=== PATIENT | female | born 1960 | race Caucasian/White ===

== ENCOUNTER → 2017-03-18 | Outpatient (CLI) | payer OTHER ==
[~2017-03-18] MED LIST: CRG40 PO; DOCU100C31 PO; DXY100 PO; LSX40 PO; PRD10 PO; PRT40 PO; SENN-65 PO; SPR25 PO; THIA100T11 PO; XFX550 PO
--- NOTE | 2017-03-18 15:49 | MAMMOGRAPHY REPORT ---
BILATERAL DIGITAL SCREENING MAMMOGRAM TOMOSYNTHESIS WITH CAD: 03/18/2017 CLINICAL HISTORY: Routine screening. TECHNIQUE: Breast tomosynthesis in addition to standard 2D mammography was performed. Current study was also evaluated with a Computer Aided Detection (CAD) system. COMPARISON: Comparison is made to exam dated: 10/11/2011 mammogram - [facility]. BREAST COMPOSITION: There are scattered areas of fibroglandular density in both breasts. FINDINGS: No suspicious masses, calcifications, or areas of architectural distortion are noted in ei ther breast. There are bilateral scattered benign vascular calcifications, increased from the prior 2011 exam. IMPRESSION: ACR BI-RADS CATEGORY 2: BENIGN There is no mammographic evidence of malignancy. A 1 year screening mammogram is recommended. The pa tient will receive written notification of the results. Approximately 10% of breast cancers are not detected with mammography. A negative mammographic report should not delay biopsy if a clinically suggestive mass is present. Melanie Kline M.D. ah/:03/18/2017 15:34:43 Diamond Sorter: Dayana GALINDO(Harmony)(M), [facility] letter sent: Normal 1/2 BI-RADS Code: ACR BI-RADS Category 2: Benign
== END | disposition home or self-care (01) ==
LOC: C.MAMM 10:48
PROVIDERS: ATTEND Nurse Practitioner Adult Health
DX: Z12.31 Encounter for screening mammogram for malignant neoplasm of breast (principal)

== ENCOUNTER 2020-08-15 16:59 | Inpatient (IN) ==
[2020-08-15 17:34] LABS: INR 3.1 (0.9-1.1); Partial Thromboplastin Ratio 1.7; Partial Thromboplastin Time 44.7 Seconds (21.0-31.0); Prothrombin Time 28.5 Seconds (9.0-12.0)
[2020-08-15] MEDS ORDERED: LACTULOSE SYRUP 30 GM/45 ML UDP PO STA (17:35)
--- NOTE | 2020-08-15 17:41 | Emergency Department Note ---
History of Present Illness General Chief complaint: Altered Mental Status Stated complaint: CONFUSION/JAUNDICE/BLOOD DISEASE Time Seen by Provider: 08/15/20 17:27 Source: patient and RN notes reviewed Mode of arrival: EMS History of Present Illness Provider complaint: Altered mental status Onset (ago): hour(s) Location: head Severity: moderate Pain Consistency: + constant Quality: + other (Confused) Relieved By: + none Associated symptoms: + confusion; no chest pain, no cough, no fever/chills, no headaches, no nausea/vomiting, no shortness of breath, no syncope and no weakness This is a 59-year-old female with history of alcoholic cirrhosis presenting with altered mental status today. The patient last spoke to her son over the telephone at noon yesterday. When he tried to contact her today he could not get an answer. He went to her house and she was not answering the door. EMS arrived and she was on the toilet very confused. She progressively got better on the way here. She denies any headache, numbness or weakness, chest pain, shortness of breath, fever, cough, abdominal pain, vomiting, diarrhea or urinary symptoms. She states that her skin and eyes have been discolored for about a month. She also states that she stopped taking her lactulose 3 weeks ago. She has had increased swelling to her abdomen as well as swelling to her legs as well. She denies any fall or headache. Home Medications Medication Instructions Recorded Confirmed Type Xifaxan 550 mg PO BID 06/12/18 08/15/20 History furosemide 40 mg PO QAM 06/12/18 08/15/20 History lactulose 15 ml PO BID PRN 06/12/18 08/15/20 History magnesium oxide 400 mg PO QAM 06/12/18 08/15/20 History pantoprazole 40 mg PO QAM 06/12/18 08/15/20 History propranolol 10 mg PO BID 06/12/18 08/15/20 History spironolactone 25 mg PO QAM 06/12/18 08/15/20 History thiamine HCl (vitamin B1) 100 mg PO QAM 06/12/18 08/15/20 History mesalamine [Apriso] 1.5 g PO QAM 03/23/19 08/15/20 History multivitamin with folic acid 1 tab PO QAM 08/15/20 08/15/20 History [Tab-A-Kayli] Allergies Allergy/AdvReac Type Severity Reaction Status Date / Time benzalkonium Allergy Unknown Itchiness,swollen Verified 01/22/19 08:26 reddened eye cephalexin Allergy Unknown Hives Verified 01/22/19 08:26 clonidine Allergy Unknown Itchy rash Verified 01/22/19 08:26 Past Med/Surg History Medical History (Updated 08/15/20 @ 23:04 by Don Costello MD) Hemochromatosis History of colon polyps Hypertension Nonalcoholic steatohepatitis (SARAH) fatty liver Surgical History History of colonoscopy History of esophagogastroduodenoscopy (EGD) Family History Father Family history of diabetes mellitus Mother Family history of diabetes mellitus Brother Family history of diabetes mellitus 2 Social History Smoking Status: Never smoker Second Hand Exposure: No; Hx Alcohol Use: No Hx Substance Use: No Preferred Language: [place] Communication Ability: Effective Hospital Admissions Officer Required: No Beliefs That Will Affect Care: None Current Living Situation: Alone Current Living Situation Comment: lives with son Feels Safe at Home: Yes Assistive Devices: Glasses Review of Systems See HPI for pertinent positives & negatives. and A total of 10 systems reviewed and were otherwise negative Physical Exam Vital Signs Vital Signs - 24 hr 08/15/20 17:06 08/15/20 17:17 08/15/20 17:18 Temperature 36.9 C Temperature Source Oral Pulse Rate 76 75 78 Pulse Rate from SpO2 Sensor Respiratory Rate 19 18 15 Blood Pressure 129/84 129/84 Blood Pressure Mean 99 99 Pulse Oximetry 96 Oxygen Delivery Method Room Air Sepsis Recent Fever Within 48 Hours No Sepsis New/Unexplained Change in Mental Status Yes Sepsis Action Taken by Nursing No Action Required 08/15/20 17:30 08/15/20 17:31 08/15/20 19:02 Temperature Temperature Source Pulse Rate 75 75 Pulse Rate from SpO2 Sensor Respiratory Rate 16 20 22 Blood Pressure 124/84 Blood Pressure Mean 97 Pulse Oximetry Oxygen Delivery Method Sepsis Recent Fever Within 48 Hours Sepsis New/Unexplained Change in Mental Status Sepsis Action Taken by Nursing 08/15/20 19:04 08/15/20 19:10 08/15/20 19:20 Temperature Temperature Source Pulse Rate 70 71 73 Pulse Rate from SpO2 Sensor Respiratory Rate 13 20 20 Blood Pressure 113/75 Blood Pressure Mean 87 Pulse Oximetry Oxygen Delivery Method Sepsis Recent Fever Within 48 Hours Sepsis New/Unexplained Change in Mental Status Sepsis Action Taken by Nursing 08/15/20 19:30 08/15/20 19:32 08/15/20 19:36 Temperature Temperature Source Pulse Rate 66 69 69 Pulse Rate from SpO2 Sensor Respiratory Rate 17 17 20 Blood Pressure 79/59 L 80/56 L 111/69 Blood Pressure Mean 65 64 83 Pulse Oximetry Oxygen Delivery Method Sepsis Recent Fever Within 48 Hours Sepsis New/Unexplained Change in Mental Status Sepsis Action Taken by Nursing 08/15/20 19:40 08/15/20 19:41 08/15/20 19:50 Temperature Temperature Source Pulse Rate 68 68 72 Pulse Rate from SpO2 Sensor Respiratory Rate 15 16 17 Blood Pressure 103/66 Blood Pressure Mean 78 Pulse Oximetry Oxygen Delivery Method Sepsis Recent Fever Within 48 Hours Sepsis New/Unexplained Change in Mental Status Sepsis Action Taken by Nursing 08/15/20 19:51 08/15/20 20:00 08/15/20 20:10 Temperature Temperature Source Pulse Rate 69 Pulse Rate from SpO2 Sensor Respiratory Rate 14 Blood Pressure 90/58 L 107/46 L 94/55 L Blood Pressure Mean 68 66 68 Pulse Oximetry Oxygen Delivery Method Sepsis Recent Fever Within 48 Hours Sepsis New/Unexplained Change in Mental Status Sepsis Action Taken by Nursing 08/15/20 20:18 08/15/20 20:20 08/15/20 20:30 Temperature Temperature Source Pulse Rate 75 72 68 Pulse Rate from SpO2 Sensor 72 68 Respiratory Rate 18 18 15 Blood Pressure 100/54 L 85/50 L Blood Pressure Mean 69 61 Pulse Oximetry 96 98 Oxygen Delivery Method Sepsis Recent Fever Within 48 Hours Sepsis New/Unexplained Change in Mental Status Sepsis Action Taken by Nursing 08/15/20 20:31 08/15/20 20:50 08/15/20 21:01 Temperature Temperature Source Pulse Rate 70 73 70 Pulse Rate from SpO2 Sensor 70 72 70 Respiratory Rate 21 14 17 Blood Pressure 84/45 L Blood Pressure Mean 58 Pulse Oximetry 99 99 98 Oxygen Delivery Method Sepsis Recent Fever Within 48 Hours Sepsis New/Unexplained Change in Mental Status Sepsis Action Taken by Nursing 08/15/20 21:03 08/15/20 21:04 08/15/20 21:22 Temperature Temperature Source Pulse Rate 69 69 73 Pulse Rate from SpO2 Sensor 69 69 73 Respiratory Rate 12 16 22 Blood Pressure 82/43 L Blood Pressure Mean 56 85 Pulse Oximetry 98 96 97 Oxygen Delivery Method Sepsis Recent Fever Within 48 Hours Sepsis New/Unexplained Change in Mental Status Sepsis Action Taken by Nursing 08/15/20 21:24 08/15/20 21:27 08/15/20 21:30 Temperature Temperature Source Pulse Rate 72 74 74 Pulse Rate from SpO2 Sensor 71 74 74 Respiratory Rate 16 21 18 Blood Pressure 89/52 L 116/75 111/72 Blood Pressure Mean 64 88 85 Pulse Oximetry 99 91 98 Oxygen Delivery Method Sepsis Recent Fever Within 48 Hours Sepsis New/Unexplained Change in Mental Status Sepsis Action Taken by Nursing 08/15/20 21:31 08/15/20 21:32 08/15/20 21:35 Temperature Temperature Source Pulse Rate 73 75 75 Pulse Rate from SpO2 Sensor 74 75 73 Respiratory Rate 22 12 21 Blood Pressure 99/52 L 94/52 L Blood Pressure Mean 67 66 Pulse Oximetry 99 98 99 Oxygen Delivery Method Sepsis Recent Fever Within 48 Hours Sepsis New/Unexplained Change in Mental Status Sepsis Action Taken by Nursing 08/15/20 21:36 08/15/20 21:40 08/15/20 21:50 Temperature Temperature Source Pulse Rate 76 73 78 Pulse Rate from SpO2 Sensor 76 74 80 Respiratory Rate 18 16 18 Blood Pressure Blood Pressure Mean Pulse Oximetry 98 99 95 Oxygen Delivery Method Sepsis Recent Fever Within 48 Hours Sepsis New/Unexplained Change in Mental Status Sepsis Action Taken by Nursing 08/15/20 21:55 08/15/20 21:56 08/15/20 22:00 Temperature Temperature Source Pulse Rate 75 74 71 Pulse Rate from SpO2 Sensor 76 75 72 Respiratory Rate 19 20 16 Blood Pressure 93/55 L 94/47 L Blood Pressure Mean 67 62 Pulse Oximetry 97 97 98 Oxygen Delivery Method Sepsis Recent Fever Within 48 Hours Sepsis New/Unexplained Change in Mental Status Sepsis Action Taken by Nursing 08/15/20 22:01 08/15/20 22:05 08/15/20 22:10 Temperature Temperature Source Pulse Rate 73 72 71 Pulse Rate from SpO2 Sensor 74 73 72 Respiratory Rate 15 15 14 Blood Pressure 88/45 L 87/50 L Blood Pressure Mean 59 62 Pulse Oximetry 98 99 98 Oxygen Delivery Method Sepsis Recent Fever Within 48 Hours Sepsis New/Unexplained Change in Mental Status Sepsis Action Taken by Nursing 08/15/20 22:15 08/15/20 22:16 08/15/20 22:20 Temperature Temperature Source Pulse Rate 70 73 70 Pulse Rate from SpO2 Sensor 71 73 70 Respiratory Rate 13 16 19 Blood Pressure 95/46 L 87/52 L Blood Pressure Mean 62 63 Pulse Oximetry 98 97 97 Oxygen Delivery Method Sepsis Recent Fever Within 48 Hours Sepsis New/Unexplained Change in Mental Status Sepsis Action Taken by Nursing 08/15/20 22:21 08/15/20 22:31 08/15/20 22:50 Temperature Temperature Source Pulse Rate 69 71 75 Pulse Rate from SpO2 Sensor 69 71 Respiratory Rate 13 23 13 Blood Pressure 110/73 Blood Pressure Mean 85 Pulse Oximetry 97 96 Oxygen Delivery Method Sepsis Recent Fever Within 48 Hours Sepsis New/Unexplained Change in Mental Status Sepsis Action Taken by Nursing Constitutional: Vital signs reviewed. Eyes: Pupils are equal round reactive to light. Sclera are icteric. ENT: Pharynx is clear without erythema or exudate. Mucous membranes are moist. Neck supple without meningeal signs. Respiratory: Clear to auscultation bilaterally. Breath sounds are equal bilaterally. Cardiovascular: Regular rate and rhythm. No rubs or gallops. GI: Soft, distended and nontender. Bowel sounds are present. Musculoskeletal: Bilateral lower extremity edema. No lower extremity tenderness. Integumentary: Jaundiced. Neurologic: The patient is awake and alert. She is oriented x4. Slow to answer questions but answers appropriately without signs of aphasia or slurring. Cranial nerves II-XII are intact. Motor is 5 out of 5 all extremities. Sen sation is intact to light touch all extremities. No pronator drift. No limb ataxia. Positive asterixis. Psychiatric: Normal affect. Not anxious appearing. Course Administered Medications Sodium Chloride (Nss) 500 mls @ 999 mls/hr IV .Q31M ONE Stop: 08/15/20 22:59 Last Admin: 08/15/20 22:53 Dose: 999 mls/hr Documented by: [id number] Discontinued Medications Lactulose (Lactulose Syrup 30 Gm/45 Ml Udp) 30 gm PO NOW STA Stop: 08/15/20 17:36 Last Admin: 08/15/20 20:17 Dose: 30 gm Documented by: [id number] Critical Care Time Critical Care Time: Yes Total Critical Care Time: 40 I have personally spent approximately 40 minutes of critical care time in the direct management of this patient. This includes bedside care, interpretation of diagnostic studies, and testing, discussion with consultants, patient, and family members, and other required patient management activities. These minutes are in excess of all separately billable procedures. Medical Decision Making Differential Diagnosis Hepatic encephalopathy, alcohol intoxication, ICH, CVA, metabolic derangement Medical Records Attestation: I reviewed the patient's medical records. I did perform a limited focused review of portions of the patient's old chart o n the electronic medical record. The patient has had no recent pertinent visits to this hospital. Home Medications Current Medication List: was personally reviewed by me Laboratory Data Attestation: I reviewed the patient's lab results. Result diagrams: 08/15/20 17:10 08/15/20 17:10 Lab Results 08/15/20 08/15/20 08/15/20 Range/Units 17:10 17:10 17:10 WBC 7.06 (4.8-10.8) K/uL RBC 4.02 L (4.2-5.4) M/uL Hgb 13.0 (12.0-16.0) g/dL POC Hgb (12.0-16.0) g/dl Hct 35.6 L (37-47) % POC Hct (37-47) % MCV 88.6 (80-100) fL MCH 32.3 (25-34) pg MCHC 36.5 H (32-36) g/dL RDW Std Deviation 58.0 H (36.4-46.3) fL RDW Coeff of Daniel 18.5 H (11.5-14.5) % Plt Count 96 L (130-400) K/uL MPV 10.8 H (7.4-10.4) fL Immature Gran % (Auto) 1.0 % Neut % (Auto) 73.8 % Lymph % (Auto) 11.9 % [place] % (Auto) 10.9 % Eos % (Auto) 1.8 % Baso % (Auto) 0.6 % Neut # (Auto) 5.21 (1.4-6.5) K/uL Lymph # (Auto) 0.84 L (1.2-3.4) K/uL [place] # (Auto) 0.77 H (0.11-0.59) K/uL Eos # (Auto) 0.13 (0-0.5) K/uL Baso # (Auto) 0.04 (0-0.2) K/uL Immature Gran # (Auto) 0.07 H (0.00-0.02) K/uL Platelet Estimate Decreased L (Normal) Target Cells 1+ Echinocytes 1+ PT 28.5 H (9.0-12.0) Seconds INR 3.1 H (0.9-1.1) APTT 44.7 H (21.0-31.0) Seconds PTT Ratio 1.7 POC Sodium (135-144) mmol/L Sodium 128 L (136-145) mmol/L POC Potassium (3.3-5.0) mmol/L Potassium 2.9 L (3.5-5.1) mmol/L POC Chloride (101-112) mmol/L Chloride 91 L (98-107) mmol/L Carbon Dioxide 25 (21-32) mmol/L POC Total CO2 (24-31) mmol/L Anion Gap 12.0 H (3-11) POC Anion Gap (16-25) mmol/L POC BUN (7-18) mg/dl BUN 8 (7-18) mg/dl Creatinine (0.6-1.2) mg/dl POC Creatinine (0.6-1.3) mg/dl Est Cr Clr Drug Dosing ml/min Est GFR ( Amer) Est GFR (Non-Af Amer) BUN/Creatinine Ratio (10-20) Glucose 96 (70-99) mg/dl POC Glucose (other) (70-99) mg/dl Calcium 8.6 (8.5-10.1) mg/dl POC Ioniz Calcium Dustin (1.12-1.32) mmol/l Magnesium 2.0 (1.8-2.4) mg/dl Total Bilirubin 26.3 H (0.2-1) mg/dl AST 164 H (15-37) U/L ALT 62 (12-78) U/L Alkaline Phosphatase 257 H (45-117) U/L Ammonia (11-32) umol/L Troponin I < 0.015 (0-0.045) ng/ml Total Protein (6.4-8.2) gm/dl Albumin 1.9 L (3.4-5.0) gm/dl Globulin (2.5-4.0) gm/dl Albumin/Globulin Ratio (0.9-2) TSH 5.440 H (0.300-4.500) uIu/ml Ethyl Alcohol mg/dL (0-3) mg/dl COVID-19 Eval Order SARS-CoV-2, RNA, NAAT (NEGATIVE) 08/15/20 08/15/20 08/15/20 Range/Units 17:10 17:45 17:45 WBC (4.8-10.8) K/uL RBC (4.2-5.4) M/uL Hgb (12.0-16.0) g/dL POC Hgb (12.0-16.0) g/dl Hct (37-47) % POC Hct (37-47) % MCV (80-100) fL MCH (25-34) pg MCHC (32-36) g/dL RDW Std Deviation (36.4-46.3) fL RDW Coeff of Daniel (11.5-14.5) % Plt Count (130-400) K/uL MPV (7.4-10.4) fL Immature Gran % (Auto) % Neut % (Auto) % Lymph % (Auto) % [place] % (Auto) % Eos % (Auto) % Baso % (Auto) % Neut # (Auto) (1.4-6.5) K/uL Lymph # (Auto) (1.2-3.4) K/uL [place] # (Auto) (0.11-0.59) K/uL Eos # (Auto) (0-0.5) K/uL Baso # (Auto) (0-0.2) K/uL Immature Gran # (Auto) (0.00-0.02) K/uL Platelet Estimate (Normal) Target Cells Echinocytes PT (9.0-12.0) Seconds INR (0.9-1.1) APTT (21.0-31.0) Seconds PTT Ratio POC Sodium (135-144) mmol/L Sodium (136-145) mmol/L POC Potassium (3.3-5.0) mmol/L Potassium (3.5-5.1) mmol/L POC Chloride (101-112) mmol/L Chloride (98-107) mmol/L Carbon Dioxide (21-32) mmol/L POC Total CO2 (24-31) mmol/L Anion Gap (3-11) POC Anion Gap (16-25) mmol/L POC BUN (7-18) mg/dl BUN (7-18) mg/dl Creatinine (0.6-1.2) mg/dl POC Creatinine (0.6-1.3) mg/dl Est Cr Clr Drug Dosing ml/min Est GFR ( Amer) Est GFR (Non-Af Amer) BUN/Creatinine Ratio (10-20) Glucose (70-99) mg/dl POC Glucose (other) (70-99) mg/dl Calcium (8.5-10.1) mg/dl POC Ioniz Calcium Dustin (1.12-1.32) mmol/l Magnesium (1.8-2.4) mg/dl Total Bilirubin (0.2-1) mg/dl AST (15-37) U/L ALT (12-78) U/L Alkaline Phosphatase (45-117) U/L Ammonia 107.0 H (11-32) umol/L Troponin I (0-0.045) ng/ml Total Protein (6.4-8.2) gm/dl Albumin (3.4-5.0) gm/dl Globulin (2.5-4.0) gm/dl Albumin/Globulin Ratio (0.9-2) TSH (0.300-4.500) uIu/ml Ethyl Alcohol mg/dL (0-3) mg/dl COVID-19 Eval [facility] SARS-CoV-2, RNA, NAAT NEGATIVE (NEGATIVE) 08/15/20 08/15/20 Range/Units 18:01 18:16 WBC (4.8-10.8) K/uL RBC (4.2-5.4) M/uL Hgb (12.0-16.0) g/dL POC Hgb 14.3 (12.0-16.0) g/dl Hct (37-47) % POC Hct 42 (37-47) % MCV (80-100) fL MCH (25-34) pg MCHC (32-36) g/dL RDW Std Deviation (36.4-46.3) fL RDW Coeff of Daniel (11.5-14.5) % Plt Count (130-400) K/uL MPV (7.4-10.4) fL Immature Gran % (Auto) % Neut % (Auto) % Lymph % (Auto) % [place] % (Auto) % Eos % (Auto) % Baso % (Auto) % Neut # (Auto) (1.4-6.5) K/uL Lymph # (Auto) (1.2-3.4) K/uL [place] # (Auto) (0.11-0.59) K/uL Eos # (Auto) (0-0.5) K/uL Baso # (Auto) (0-0.2) K/uL Immature Gran # (Auto) (0.00-0.02) K/uL Platelet Estimate (Normal) Target Cells Echinocytes PT (9.0-12.0) Seconds INR (0.9-1.1) APTT (21.0-31.0) Seconds PTT Ratio POC Sodium 126 L (135-144) mmol/L Sodium (136-145) mmol/L POC Potassium 2.7 L (3.3-5.0) mmol/L Potassium (3.5-5.1) mmol/L POC Chloride 87 L (101-112) mmol/L Chloride (98-107) mmol/L Carbon Dioxide (21-32) mmol/L POC Total CO2 23 L (24-31) mmol/L Anion Gap (3-11) POC Anion Gap 19.0 (16-25) mmol/L POC BUN 7 (7-18) mg/dl BUN (7-18) mg/dl Creatinine (0.6-1.2) mg/dl POC Creatinine 1.9 H (0.6-1.3) mg/dl Est Cr Clr Drug Dosing ml/min Est GFR ( Amer) Est GFR (Non-Af Amer) BUN/Creatinine Ratio (10-20) Glucose (70-99) mg/dl POC Glucose (other) 94 (70-99) mg/dl Calcium (8.5-10.1) mg/dl POC Ioniz Calcium Dustin 1.02 L (1.12-1.32) mmol/l Magnesium (1.8-2.4) mg/dl Total Bilirubin (0.2-1) mg/dl AST (15-37) U/L ALT (12-78) U/L Alkaline Phosphatase (45-117) U/L Ammonia (11-32) umol/L Troponin I (0-0.045) ng/ml Total Protein (6.4-8.2) gm/dl Albumin (3.4-5.0) gm/dl Globulin (2.5-4.0) gm/dl Albumin/Globulin Ratio (0.9-2) TSH (0.300-4.500) uIu/ml Ethyl Alcohol mg/dL < 3.0 (0-3) mg/dl COVID-19 Eval Order SARS-CoV-2, RNA, NAAT (NEGATIVE) Imaging Data Radiologist's Impression: XR chest 1V portable HISTORY: 59 years-old Female AMS eval for pna acutely altered mental status. COMPARISON: Chest radiograph 06/20/2016 TECHNIQUE: Portable AP view of the chest FINDINGS: Cardiac silhouette is mildly enlarged. No pneumothorax, pleural effusion or overt pulmonary edema. Mild chronic interstitial coarsening. Unchanged opacity of the right lung apex suggestive of pleural thickening. Mild right hemidiap hragmatic elevation. Bones appear grossly intact. IMPRESSION: No acute process. ACT 112: Negative or not required by law. The above report was generated using voice recognition software. It may contain grammatical, syntax or spelling errors. Electronically signed by: Hipolito Conner M.D. 08/15/2020 6:21 PM Dictated: 08/15/201819 Transcribed: 08/15/201819 CT head/brain wo con CLINICAL HISTORY: 59 years-old Female with ams. Acutely altered mental status TECHNIQUE: Multiple axial CT images of the head were obtained without contrast. A dose lowering technique was utilized adhering to the principles of ALARA. CT DOSE: 994.86 mGycm COMPARISON: Head CT 06/18/2016. FINDINGS: No acute intracranial hemorrhage, midline shift, intracranial mass, hydrocephalus, territorial ischemia or abnormal extra-axial collection. Cerebral vascular calcifications. Minimal white matter hypodensities suggest chronic microvascular ischemic disease. The calvarium is intact. The paranasal sinuses, mastoid air cells, and middle ear cavities are clear. IMPRESSION: No acute intracranial abnormality. ACT 112: Negative or not required by law. The above report was generated using voice recognition software. It may contain grammatical, syntax or spelling errors. Electronically signed by: Hipolito Conner M.D. 08/15/2020 7:01 PM Dictated: 08/15/201899 Transcribed: 08/15/[address] WITHOUT CONTRAST CT DOSE: 1353.86 mGycm HISTORY: Acute jaundice jaundice eval for obstruction/ascites TECHNIQUE: Multiaxial CT images of the abdomen and pelvis were performed without contrast. A dose lowering technique was utilized adhering to the principles of ALARA. COMPARISON STUDY: Renal ultrasound 06/18/2016, CT abdomen and pelvis 05/04/2016 FINDINGS: Limited exam secondary to respiratory motion artifact, positioning and lack of contrast. Cardiomegaly. Clear lung bases. No pneumatosis or pneumoperitoneum. Unenhanced spleen, pancreas and right adrenal gland are unremarkable. 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 Partially contracted gallbladder with cho lelithiasis. No choledocholithiasis or definitive biliary ductal dilation identified. Cirrhotic morphology of the liver with severe hepatic steatosis. Small to moderate volume of abdominal pelvic ascites. Upper abdominal varices. 3.6 cm cyst of the inferior pole left kidney. No hydronephrosis. Kidneys are otherwise unremarkable. Partially decompressed urinary bladder with mild wall thickening. Unremarkable uterus. No aortic aneurysm. No adenopathy. Small hiatal hernia. No bowel obstruction. There is mild wall thickening of the cecum and ascending colon. Normal appendix. Diffuse body wall edema. No acute fracture. IMPRESSION: 1. Cirrhotic liver disease with severe hepatic steatosis. Stigmata of portal venous hypertension includes upper abdominal varices with small to moderate volume of abdominal pelvic ascites. 2. Mild wall thickening of the cecum and ascending colon may be secondary to portal colopathy with a mild nonspecific colitis also within the differential. 3. Normal appendix. 4. No bowel obstruction or pneumoperitoneum. 5. Small hiatal hernia. ACT 112: Negative or not required by law. The above report was generated using voice recognition software. It may contain grammatical, syntax or spelling errors. Electronically signed by: Hipolito Conner M.D. 08/15/2020 7:25 PM Dictated: 08/15/201915 Transcribed: 08/15/201918 ECG Data Attestation: I personally reviewed and interpreted this ECG as follows: Indication: + altered mental status Rate (beats per minute): 77 Rhythm: + normal sinus ECG Intervals/blocks: + Prolonged QT ECG Findings: + Other (Limited interpretation due to motion artifact.); no PVCs MDM Narrative I did evaluate the patient as noted above. Patient is presenting with altered mental status. She admits to not taking her lactulose for 3 weeks. She does have a history of alcoholic cirrhosis. She is jaundiced. IV access was established. I did place an order for continuous cardiac monitoring. The monitor showed normal sinus rhythm at a rate of 76 bpm. I did order and personally review the patient's 12-lead EKG as described above. She has a prolonged QT interval. Interpretation is limited due to motion artifact. I did order and personally reviewed the images of the patient's chest x-ray as described above. There is no evidence of pneumonia. I did order a urine analysis. I did order and review the patient's blood work as noted in the electronic medical record. Her white blood cell count is not elevated. Hemoglobin is 13. Platelet count is 96,000. She has an INR 3.1. Chemistries demonstrate a sodium of 128. Potassium is 2.9. Creatinine is elevated at 1.9. Total bilirubin is 26.3. AST is 164. ALT is 62. Ammonia is elevated at 107. Troponin is negative. I did order a CT of the head and abdomen and pelvis. I did review the images myself as well as the radiology report as described above. There is no evidence of acute intracranial process. CT of the abdomen pelvis demonstrates cirrhotic liver disease with severe hepatic steatosis. There is evidence of portal venous hypertension and upper abdominal varices with abdominal and pelvic ascites. I did discuss the test results with the patient. I did treat her with lactulose 30 g p.o. I did recommend hospitalization for further care and evaluation. I did discuss the case with the hospitalist and ca se regional production manager. Her blood pressure dropped slightly but then spontaneously went back to normal. Throughout the ED stay she had some episodes of hypotension but each time stated that she did not feel lightheaded or weak or have any symptoms. She was given normal saline IV and her blood pressure improved. Impression & Plan Acute hepatic encephalopathy, Hyponatremia, Abdominal ascites, Hypokalemia, Elevated serum creatinine, Thrombocytopenia, Alcoholic cirrhosis, Hyperbilirubinemia, Elevated INR Discharge Plan Visit Data Chief Complaint: Altered Mental Status Stated Complaint: CONFUSION/JAUNDICE/BLOOD DISEASE ED Provider: Don Costello Discharge Problem: Acute hepatic encephalopathy, Hyponatremia, Abdominal ascites, Hypokalemia, Elevated serum creatinine, Thrombocytopenia, Alcoholic cirrhosis, Hyperbilirubinemia, Elevated INR Patient Disposition: Being Evaluated by Hospitalist Forms Stand Alone Forms: My [facility] Prescriptions Prescriptions: No Action multivitamin with folic acid [Tab-A-Kayli] 400 mcg tablet 1 tab PO QAM RF: 0 furosemide 40 mg Tablet 40 mg PO QAM RF: 0 thiamine HCl (vitamin B1) 100 mg Tablet 100 mg PO QAM RF: 0 spironolactone 25 mg Tablet 25 mg PO QAM RF: 0 propranolol 10 mg Tablet 10 mg PO BID RF: 0 magnesium oxide 400 mg (241.3 mg magnesium) Tablet 400 mg PO QAM RF: 0 pantoprazole 40 mg Tablet,Delayed Release (Dr/Ec) 40 mg PO QAM RF: 0 lactulose 10 gram/15 mL Solution 15 ml PO BID PRN (Reason: 3 Bowel Movements Daily) RF: 0 Xifaxan 550 mg Tablet 550 mg PO BID RF: 0 mesalamine [Apriso] 0.375 gram Capsule,Extended Release 24hr 1.5 g PO QAM RF: 0 Referrals Referrals: Kamilla Suazo DO [Primary Care Provider] -
[2020-08-15 17:52] LABS: Alanine Aminotransferase 62 U/L (12-78); Albumin Level 1.9 gm/dl (3.4-5.0); Alkaline Phosphatase 257 U/L (45-117); Aspartate Aminotransferase 164 U/L (15-37); Bilirubin,Total 26.3 mg/dl (0.2-1); Blood Urea Nitrogen 8 mg/dl (7-18); Calcium 8.6 mg/dl (8.5-10.1); Carbon Dioxide 25 mmol/L (21-32); Chloride 91 mmol/L (98-107); Glucose 96 mg/dl (70-99); Potassium 2.9 mmol/L (3.5-5.1); Sodium 128 mmol/L (136-145); Troponin I < 0.015 ng/ml (0-0.045)
[2020-08-15 18:08] LABS: Basophils # (auto) 0.04 K/uL (0-0.2); Basophils % (auto) 0.6 %; Echinocytes 1+; Eosinophils # (auto) 0.13 K/uL (0-0.5); Eosinophils % (auto) 1.8 %; Hematocrit (blood only) 35.6 % (37-47); Immature Granulocytes # (auto) 0.07 K/uL (0.00-0.02); Lymphocytes # (auto) 0.84 K/uL (1.2-3.4); Lymphocytes % (auto) 11.9 %; Mean Corpuscular Hemoglobin 32.3 pg (25-34); Mean Corpuscular Hgb Conc 36.5 g/dL (32-36); Mean Corpuscular Volume 88.6 fL (80-100); Mean Platelet Volume 10.8 fL (7.4-10.4); Monocytes # (auto) 0.77 K/uL (0.11-0.59); Monocytes % (auto) 10.9 %; Neutrophils # (auto) 5.21 K/uL (1.4-6.5); Neutrophils % (auto) 73.8 %; Platelet Count 96 K/uL (130-400); Platelet Estimate Decreased (Normal); RDW Coefficient of Variation 18.5 % (11.5-14.5); Red Blood Count 4.02 M/uL (4.2-5.4); Target Cells 1+; White Blood Count 7.06 K/uL (4.8-10.8)
--- NOTE | 2020-08-15 18:22 | XRay Report ---
XR chest 1V portable HISTORY: 59 years-old Female AMS eval for pna acutely altered mental status. COMPARISON: Chest radiograph 06/20/2016 TECHNIQUE: Portable AP view of the chest FINDINGS: Cardiac silhouette is mildly enlarged. No pneumothorax, pleural effusion or overt pulmonary edema. Mi ld chronic interstitial coarsening. Unchanged opacity of the right lung apex suggestive of pleural th ickening. Mild right hemidiaphragmatic elevation. Bones appear grossly intact. IMPRESSION: No acute process. ACT 112: Negative or not required by law. The above report was generated using voice recognition software. It may contain grammatical, syntax o r spelling errors. Electronically signed by: Hipolito Conner M.D. 08/15/2020 6:21 PM
[2020-08-15 18:28] LABS: iSTAT Creatinine 1.9 mg/dl (0.6-1.3); iSTAT Hemoglobin 14.3 g/dl (12.0-16.0); iSTAT Ionized Calcium 1.02 mmol/l (1.12-1.32); iSTAT Potassium 2.7 mmol/L (3.3-5.0)
--- NOTE | 2020-08-15 19:03 | CT Scan Report ---
CT head/brain wo con CLINICAL HISTORY: 59 years-old Female with ams. Acutely altered mental status TECHNIQUE: Multiple axial CT images of the head were obtained without contrast. A dose lowering tech nique was utilized adhering to the principles of ALARA. CT DOSE: 994.86 mGycm COMPARISON: Head CT 06/18/2016. FINDINGS: No acute intracranial hemorrhage, midline shift, intracranial mass, hydrocephalus, territorial ischem ia or abnormal extra-axial collection. Cerebral vascular calcifications. Minimal white matter hypoden sities suggest chronic microvascular ischemic disease. The calvarium is intact. The paranasal sinuses, mastoid air cells, and middle ear cavities are clear . IMPRESSION: No acute intracranial abnormality. ACT 112: Negative or not required by law. The above report was generated using voice recognition software. It may contain grammatical, syntax o r spelling errors. Electronically signed by: Hipolito Conner M.D. 08/15/2020 7:01 PM
--- NOTE | 2020-08-15 19:27 | CT Scan Report ---
ABDOMEN AND PELVIS CT WITHOUT CONTRAST CT DOSE: 1353.86 mGycm HISTORY: Acute jaundice jaundice eval for obstruction/ascites TECHNIQUE: Multiaxial CT images of the abdomen and pelvis were performed without contrast. A dose lo wering technique was utilized adhering to the principles of ALARA. COMPARISON STUDY: Renal ultrasound 06/18/2016, CT abdomen and pelvis 05/04/2016 FINDINGS: Limited exam secondary to respiratory motion artifact, positioning and lack of contrast. Ca rdiomegaly. Clear lung bases. No pneumatosis or pneumoperitoneum. Unenhanced spleen, pancreas and right adrenal gland are unremarkable. 1.5 cm left adrenal gland myoli enid. Partially contracted gallbladder with cholelithiasis. No choledocholithiasis or definitive bili abhi ductal dilation identified. Cirrhotic morphology of the liver with severe hepatic steatosis. Smal l to moderate volume of abdominal pelvic ascites. Upper abdominal varices. 3.6 cm cyst of the inferior pole left kidney. No hydronephrosis. Kidneys are otherwise unremarkable. Partially decompressed urinary bladder with mild wall thickening. Unremarkable uterus. No aortic aneu rysm. No adenopathy. Small hiatal hernia. No bowel obstruction. There is mild wall thickening of the cecum and ascending c olon. Normal appendix. Diffuse body wall edema. No acute fracture. IMPRESSION: 1. Cirrhotic liver disease with severe hepatic steatosis. Stigmata of portal venous hypertension incl udes upper abdominal varices with small to moderate volume of abdominal pelvic ascites. 2. Mild wall thickening of the cecum and ascending colon may be secondary to portal colopathy with a mild nonspecific colitis also within the differential. 3. Normal appendix. 4. No bowel obstruction or pneumoperitoneum. 5. Small hiatal hernia. ACT 112: Negative or not required by law. The above report was generated using voice recognition software. It may contain grammatical, syntax o r spelling errors. Electronically signed by: Hipolito Conner M.D. 08/15/2020 7:25 PM
[2020-08-15] MEDS ORDERED: SODIUM CHLORIDE 0.9% 500 ML IV ONE (22:29)
[2020-08-15 23:00] LABS: Appearance Urine Cloudy (Clear); Bacteria Urine Automated 4+ (Negative); Blood Urine Negative (Negative); Color Urine Dark Yellow; Epithelial Cell Urine Auto >30 /lpf (0-5); Glucose Urine UA Negative (Negative); Ketones Urine Negative (Negative); Leukocyte Esterase Urine 2+ (Negative); Nitrite Urine Positive (Negative); Protein Urine Negative (Negative); RBC Urine Automated 0-4 /hpf (0-4); Urobilinogen Urine Negative (Negative)
[2020-08-15 23:05] LABS: Bilirubin Urine 3+ (Negative)
[2020-08-15 23:59] LABS: Renal Epithelial Cells Urine 0-5 /lpf (0-5)
[2020-08-16] MEDS ORDERED: LORazepam 1 MG/2 ML VIAL IV PRN (00:57)
[2020-08-16] MEDS ORDERED: NITROGLYCERIN SL 0.4 MG/TAB TAB SL PRN (00:57)
[2020-08-16] MEDS ORDERED: GABAPENTIN 600 MG TAB PO ONE (00:57)
[2020-08-16] MEDS ORDERED: ONDANSETRON INJ 2 MG/ML 2 ML VIAL IV PRN (00:57)
[2020-08-16] MEDS ORDERED: PIPERACILL/TAZOBAC CONSULT ACTIVE PRN (00:57)
[2020-08-16] MEDS ORDERED: LORazepam 3 MG/6 ML VIAL IV PRN (00:57)
[2020-08-16] MEDS ORDERED: MULTI-VITAMIN INFUSION 10 ML, THIAMINE HCL 100 MG, FOLIC ACID 1 MG in SODIUM CHLORIDE 0... IV ONE (00:57)
[2020-08-16] MEDS ORDERED: LORazepam 2 MG/4 ML VIAL IV PRN (00:57)
[2020-08-16] MEDS ORDERED: GABAPENTIN 1200MG ALCOHOL WITHDRAWAL LOAD PO STA (00:57)
[2020-08-16] MEDS ORDERED: POTASSIUM CHLORIDE CRTAB 20 MEQ TABCR PO STA (00:57)
[2020-08-16] MEDS ORDERED: ATIVAN IV ALCOHOL WITHDRAWL IV PRN (00:57)
[2020-08-16] MEDS ORDERED: PHYTONADIONE 5 MG TAB PO STA (00:57)
[2020-08-16] MEDS ORDERED: PIPERACILLIN/TAZOBACTAM 4.5 GM in DEXTROSE 5% 100 ML IV ONE (01:30)
[2020-08-16] MEDS: POTASSIUM CHLORIDE / WTR 10 MEQ/100 ML PLCT IV SCH ×2 (01:48→02:48)
[2020-08-16] MEDS: THIAMINE HCL 100 MG in SYRINGE 9 ML IV SCH ×2 (01:48→08:12)
[2020-08-16] MEDS: rifAXIMin 550 MG TABLET PO SCH ×3 (01:49→20:41)
[2020-08-16] MEDS: LACTULOSE SYRUP 30 GM/45 ML UDP PO SCH ×5 (01:49→20:41)
[2020-08-16] MEDS: methylPREDNISolone 40 MG in SYRINGE 0 ML IV SCH ×2 (01:50→08:28)
[2020-08-16] MEDS: PROPRANOLOL HCL 10 MG TAB PO SCH ×3 (01:50→20:41)
[2020-08-16] MEDS: FOLIC ACID 1 MG in SYRINGE 9.8 ML IV SCH ×2 (01:50→08:12)
--- NOTE | 2020-08-16 01:56 | History and Physical Report ---
DATE OF ADMISSION: 08/15/2020 CHIEF COMPLAINT: Confusion. HISTORY OF PRESENT ILLNESS: A 59-year-old female with past medical history significant for alcoholic liver cirrhosis, history of hepatic encephalopathy, history of hemochromatosis, hypertension, portal hypertensive gastropathy, obesity, ongoing alcohol abuse. Lives alone, was brought in, son called ambulance because she was confused and disoriented at home. Son says that he checks her every day, but he did not check for last couple of days and today when he went she was found to be disoriented, confused.He also noticed eyes turning yellow about a month ago and couple of days ago, she was getting more yellow and today it got worse and he saw some empty vodka bottles at home. He thinks she is still drinking. When checked with the patient she says she is drinking 2 shots of vodka every day, last drink was about 2 days ago. Denies any fevers. Denies any chest pain, no shortness of breath. She has some dry cough. No abdominal pain. She says she is moving her bowels at home, does not remember taking lactulose. She is ambulating okay at home. Appetite is okay. She is oriented to name and place, could not tell her date of , knows today's month and year, but could not tell why she was brought into the hospital, she was somewhat confused, could not get much history from the patient. Also son says she was in the hospital with sepsis a couple of years ago for lower extremity wounds, so he got worried and he went to bring her to the hospital earlier and last admission she also seemed to be on alcohol withdrawal at that time. ALLERGIES: BENZALKONIUM, CEPHALEXIN, CLONIDINE. PAST MEDICAL HISTORY: As mentioned above. PAST SURGICAL HISTORY: Colonoscopies, EGDs. MEDICATIONS: The patient is on Lasix 40 mg p.o. daily, vitamin B1 100 mg p.o. daily, magnesium oxide 400 mg p.o. daily, Protonix 40 mg p.o. daily, propranolol 10 mg p.o. b.i.d., spironolactone 25 mg p.o. daily, Xifaxan 550 mg p.o. b.i.d., lactulose 15 mL p.o. b.i.d., mesalamine ER 0.375 grams 4 capsules p.o. daily, multivitamins tablet daily, MiraLax, polyethylene glycol, propylene glycol instill 1 drop both eyes at bedtime. FAMILY HISTORY: Significant for aunt has ovarian caner, another aunt has pancreatic cancer. Father has lung cancer, diabetes, hypertension. Mother has thyroid disorder, rheumatoid arthritis, hypertension, heart disorder, eye problems. Brother has diabetes. SOCIAL HISTORY: She lives alone. No smoking, still drinking alcohol, no drug use. REVIEW OF SYMPTOMS: As per HPI. Rest of review of systems negative. PHYSICAL EXAMINATION: GENERAL: The patient is obese, somewhat confused. VITAL SIGNS: Temperature 36.9, pulse 101, respiratory rate 20, blood pressure 98/67, oxygen 98% room air. HEENT: Pupils equal, round, reactive to light. Icterus present. Oral mucosa somewhat dry. NECK: No neck masses seen. CARDIOVASCULAR: S1, S2, regular rate and rhythm, no murmur, no gallop. RESPIRATORY SYSTEM: Normal AP diameter. No accessory muscle use. No wheezing, no crackles. ABDOMEN: Some distended, some mild erythematous changes seen. Nontender. Bowel sounds present. CENTRAL NERVOUS SYSTEM: Alert and awake and oriented to name and place. Speech is clear. No facial droop. Obeys simple commands. Moves extremities. EXTREMITIES: Lower extremity edema present, some mild erythematous changes. SKIN: Yellow discoloration. LABORATORY DATA: WBC 7, hemoglobin 13, hematocrit 35.6, platelets 96. PT 38.5, INR 3.1, APTT 44.7. Sodium 128, potassium 2.9, chloride 91, CO2 25, BUN 8, creatinine 1.9, serum glucose 8.6, glucose 96, calcium 8.6, magnesium 2, total bilirubin 26.3, AST 164, ALT 162, alkaline phosphatase 257. Ammonia 107. Troponin I less than 0.015. TSH 5.44. Urinalysis positive for leukocyte esterase. Alcohol less than 3. SARS-CoV-2 negative. IMAGING: CT of abdomen and pelvis, cirrhotic liver with hepatic steatosis, stigmata of portal venous hypertension. Upper abdomen there is a small to moderate volume of abdominal pelvic ascites, mild wall thickening of the cecum, ascending colon may be secondary to portal colopathy with mild nonspecific colitis. Chest x-ray: No acute process. CT of the head, no acute intracranial abnormality. EKG: Normal sinus rhythm, nonspecific ST-T wave abnormalities at a rate of 77. QTc at 577. ASSESSMENT AND PLAN: This is a 59-year-old female brought in because of confusion and found to have hepatic encephalopathy. 1. Hepatic encephalopathy, history of alcohol liver cirrhosis. Ammonia level is 107. The patient does not remember taking lactulose. We will place her on lactulose 30 grams q.i.d. and also continue home Xifaxan 550 mg b.i.d. Repeat ammonia level in a.m. Closely monitor in the tele floor. Gentle fluids. Hold her diuretics. Consult GI in a.m. 2. Hyponatremia, sodium 128. Getting gentle fluids. Holding diuretics. Follow the labs. 3. Hypokalemia. Potassium 2.9. We will replace and follow the labs in a.m. 4. Acute kidney injury. Creatinine 1.9. Holding diuretics. Hold nephrotoxic agents. Getting gentle fluids. Follow the repeat labs in a.m. 5. Prolonged QTc of 577, avoid QT prolonging drugs. Follow repeat EKG in a.m. 6. Acute hepatitis, most likely alcoholic hepatitis. The patient is still drinking alcohol. Total bilirubin is 26.3. Her MELD score is 38 and discriminant function is 102, needs counseling. Started on IV methylprednisone 40 mg daily. Follow the repeat labs. GI consulted. 7. Alcoholism, still drinking 2 shots of vodka everyday. last drink was 2 days ago. We will follow for withdrawals. Starting on gabapentin and IV Ativan p.r.n., banana bag, IV thiamine, IV folic acid in a.m. 8. Mild elevation of TSH. We will follow the repeat labs in a.m. 9. Liver cirrhosis. Esophageal varices. Continue propranolol with holding parameters. Holding diuretics. getti g gentle fluids. Will monitor for volume overload. Possible SBP? Iv Zosyn. Also order ultrasound-guided paracentesis, diagnostic and therapeutic whenever able to do. Needs albumin prior to paracentesis if large volume is taken out. 10.. Thrombocytopenia secondary to cirrhosis. Platelets of 96 . We will follow repeat labs. 11. Elevated INR 3.1. We will give a dose of vitamin K. Follow the repeat INR in a.m. 12. Deep venous thrombosis prophylaxis, sequential compression devices. DISPOSITION: Closely monitor in tele floor. Level 1 full code as per my discussion with the son. PT and OT prior to discharge. Social service to help with discharge planning. Addendum: Mostly paracentesis is not done on weekends. If urgently needed will call radiologist. ARIAS
[2020-08-16] MEDS: SODIUM CHLORIDE 0.9% 1000ML 1,000 ML IV SCH ×2 (03:00→23:01)
[2020-08-16 05:27] LABS: Mean Corpuscular Hgb Conc 35.9 g/dL (32-36); Nucleated RBC # (auto) 0.05 K/uL (0-0); Nucleated RBC % (auto) 0.6 %
[2020-08-16 05:39] LABS: Hematocrit (blood only) 38.4 % (37-47); Hemoglobin 13.8 g/dL (12.0-16.0); Mean Corpuscular Hemoglobin 32.1 pg (25-34); Mean Corpuscular Volume 89.3 fL (80-100); RDW Coefficient of Variation 18.6 % (11.5-14.5); RDW Standard Deviation 58.5 fL (36.4-46.3); White Blood Count 9.09 K/uL (4.8-10.8)
[2020-08-16 05:56] LABS: Basophils # (auto) 0.02 K/uL (0-0.2); Basophils % (auto) 0.2 %; Eosinophils # (auto) 0.08 K/uL (0-0.5); Eosinophils % (auto) 0.9 %; Immature Granulocytes # (auto) 0.06 K/uL (0.00-0.02); Immature Granulocytes % (auto) 0.7 %; Lymphocytes # (auto) 0.76 K/uL (1.2-3.4); Lymphocytes % (auto) 8.4 %; Mean Platelet Volume 11.3 fL (7.4-10.4); Monocytes # (auto) 0.39 K/uL (0.11-0.59); Monocytes % (auto) 4.3 %; Neutrophils # (auto) 7.78 K/uL (1.4-6.5); Neutrophils % (auto) 85.5 %; Platelet Count 98 K/uL (130-400); Platelet Estimate Decreased (Normal); Toxic Vacuolation 1+
[2020-08-16 06:00] LABS: INR 3.4 (0.9-1.1); Prothrombin Time 31.1 Seconds (9.0-12.0)
[2020-08-16 06:02] LABS: Alanine Aminotransferase 65 U/L (12-78); Albumin Level 1.9 gm/dl (3.4-5.0); Alkaline Phosphatase 263 U/L (45-117); Aspartate Aminotransferase 175 U/L (15-37); Bilirubin,Total 26.6 mg/dl (0.2-1); Blood Urea Nitrogen 9 mg/dl (7-18); Calcium 8.3 mg/dl (8.5-10.1); Carbon Dioxide 23 mmol/L (21-32); Chloride 97 mmol/L (98-107); Glucose 83 mg/dl (70-99); Magnesium 1.9 mg/dl (1.8-2.4); Potassium 3.6 mmol/L (3.5-5.1); Sodium 131 mmol/L (136-145)
[2020-08-16 06:08] LABS: Bilirubin Direct 22.4 mg/dl (0-0.2)
[2020-08-16] MEDS: CEROVITE ADV FORMULA TAB PO SCH (08:09)
[2020-08-16] MEDS: MAGNESIUM OXIDE 400 MG TAB PO SCH (08:11)
[2020-08-16] MEDS: PANTOprazole 40 MG TAB PO SCH (08:11)
[2020-08-16] MEDS: GABAPENTIN 600 MG TAB PO SCH ×3 (08:13→20:41)
--- NOTE | 2020-08-16 08:25 | Hospitalist Progress Note ---
Date of Service August 16, 2020 Assessment & Plan (1) Acute hepatic encephalopathy: (2) Hyponatremia: (3) Abdominal ascites: (4) Hypokalemia: (5) Thrombocytopenia: (6) Alcoholic cirrhosis: (7) Hyperbilirubinemia: (8) Elevated INR: (9) Anxiety: (10) Hypertension: (11) Hemochromatosis associated with compound heterozygous mutation in HFE gene: ASSESSMENT AND PLAN: This is a 59-year-old female brought in because of confusion and found to have hepatic encephalopathy. 1. Hepatic encephalopathy, history of alcohol liver cirrhosis. Ammonia on admission was 107, now 79. The patient does not remember taking lactulose. We will place her on lactulose 30 grams q.i.d. and also continue home Xifaxan 550 mg b.i.d. Serial ammonia levels in a.m. Closely monitor in the tele floor. Gentle fluids. Hold her diuretics. Consult GI. 2. Hyponatremia, sodium 128. Getting gentle fluids. Holding diuretics. Follow the labs. 3. Hypokalemia. Potassium 2.9. We will replace and follow the labs in a.m. 4. Acute kidney injury. Creatinine 1.9. Holding diuretics. Hold nephrotoxic agents. Getting gentle fluids. Follow the repeat labs in a.m. 5. Prolonged QTc of 577, avoid QT prolonging drugs. Follow repeat EKG in a.m. 6. Acute hepatitis, most likely alcoholic hepatitis. The patient is still drinking alcohol. Total bilirubin is 26.3. Her MELD score is 38 and discriminant function is 102, needs counseling. Started on IV methylprednisone 40 mg daily. Follow the repeat labs. GI consulted. 7. Alcoholism, still drinking 2 shots of vodka everyday. last drink was 2 days ago. We will follow for withdrawals. Starting on gabapentin and IV Ativan p.r.n., banana bag, IV thiamine, IV folic acid in a.m. 8. Mild elevation of TSH. We will follow the repeat labs in a.m. 9. Liver cirrhosis. Esophageal varices. Continue propranolol with holding parameters. Holding diuretics. getti g gentle fluids. Will monitor for volume overload. Possible SBP? Iv Zosyn. Also order ultrasound-guided paracentesis, diagnostic and therapeutic whenever able to do. Needs albumin prior to paracentesis if large volume is taken out. 10.. Thrombocytopenia secondary to cirrhosis. Platelets of 96 . We will follow repeat labs. 11. Elevated INR 3.1. We will give a dose of vitamin K. Follow the repeat INR in a.m. 12. Deep venous thrombosis prophylaxis, sequential compression devices. DISPOSITION: Tele floor. Full code, PT and OT prior to discharge. Social service to help with discharge planning. Addendum: Paracentesis is not done on weekends. If urgently needed will call radiologist. Labs Checked ROS-No Headache, No Visual Changes, No Nausea, No Vomiting, No Fever, No Chills, No Neck Pain or Stiffness, No Chest Pain, No Palpitations, No SOB, No HAMMOND, No Cough, No Sputum, No Wheezing, No Abdominal Pain, No Diarrhea, No Hematemesis, No Hemoptysis, No Unexpected Weight Loss, No Flank pain, No Melena, No Hematochezia, No Frequency, No Urgency, No Burning, No Hematuria, No Rashes, No Diaphoresis. Appetite is Normal Physical Exam Gen-AAO x 3, NAD, Afebrile, Jaundiced, Obese Head-NCAT, EOMI, PERRLA, Icteric Sclera, No Posterior Pharyngeal Erythema Neck-Supple, No JVD, No Thyromegaly, No Masses, No LAD, No Bruits Lungs-Clear to Auscultation Bilaterally, No Rales, No Rhonchi, No Wheezing, No Crepitus Chest-No S4, +S1, +S2, No S3, No Murmurs, No Rubs, No Gallops, No Ectopy Abdomen-Soft, Bowel Sounds Present, Non Tender, Non Distended, No Hepatomegaly, No Splenomegaly, No Palpable Masses, No Rebound, No Rigidity, No Guarding Musculoskeletal-Full Range of Motion Bilaterally, No CVAT Extremities-No Cyanosis, No Clubbing, No Edema Nuero-Cranial Nerves II-XII grossly intact, Motor WNL, DTRs WNL, Strength WNL, Non Focal Psych-Normal Mood Admission and Anticipated Discharge Date Admission Date: August 15, 2020 Results & Data Results & Data ([facility]) Vital Signs (Past 12 Hours) Vital Signs Temp Pulse Pulse Resp BP BP Pulse Ox 08/16/20 08:00 36.4 C L 63 22 112/78 94 08/16/20 05:09 36.4 C L 65 18 94/64 L 96 08/16/20 01:28 75 02/06/21 00:57 36.4 C L 73 16 101/71 98 08/16/20 00:00 68 18 112/70 97 08/15/20 23:30 72 20 107/75 99 08/15/20 23:12 71 20 98/67 L 98 08/15/20 23:00 72 20 107/72 98 08/15/20 22:50 75 13 110/73 08/15/20 22:31 71 23 96 08/15/20 22:21 69 13 97 08/15/20 22:20 70 19 87/52 L 97 08/15/20 22:16 73 16 97 08/15/20 22:15 70 13 95/46 L 98 08/15/20 22:10 71 14 87/50 L 98 08/15/20 22:05 72 15 88/45 L 99 08/15/20 22:01 73 15 98 08/15/20 22:00 71 16 94/47 L 98 08/15/20 21:56 74 20 97 08/15/20 21:55 75 19 93/55 L 97 08/15/20 21:50 78 18 95 08/15/20 21:40 73 16 99 08/15/20 21:36 76 18 98 08/15/20 21:35 75 21 94/52 L 99 08/15/20 21:32 75 12 99/52 L 98 08/15/20 21:31 73 22 99 08/15/20 21:30 74 18 111/72 98 08/15/20 21:27 74 21 116/75 91 08/15/20 21:24 72 16 89/52 L 99 08/15/20 21:22 73 22 97 08/15/20 21:04 69 16 96 08/15/20 21:03 69 12 82/43 L 98 08/15/20 21:01 70 17 98 08/15/20 20:50 73 14 84/45 L 99 08/15/20 20:31 70 21 99 08/15/20 20:30 68 15 85/50 L 98 (1) Abdominal ascites Ascites type: due to alcoholic cirrhosis Qualified Code(s): K70.31 - Alcoholic cirrhosis of liver with ascites (2) Alcoholic cirrhosis Ascites presence: with ascites Qualified Code(s): K70.31 - Alcoholic cirrhosis of liver with ascites
--- NOTE | 2020-08-16 09:25 | Hospitalist Progress Note ---
Date of Service August 16, 2020 Assessment & Plan Admission and Anticipated Discharge Date Admission Date: August 15, 2020 Subjective Son Pavan Ph no: [phone]. Likes to be called for updates. thank you Results & Data Results & Data ([facility]) Vital Signs (Past 12 Hours) Vital Signs Temp Pulse Pulse Resp BP BP Pulse Ox 08/16/20 08:00 36.4 C L 63 22 112/78 94 08/16/20 05:09 36.4 C L 65 18 94/64 L 96 08/16/20 01:28 75 08/16/20 00:57 36.4 C L 73 16 101/71 98 08/16/20 00:00 68 18 112/70 97 08/15/20 23:30 72 20 107/75 99 08/15/20 23:12 71 20 98/67 L 98 08/15/20 23:00 72 20 107/72 98 08/15/20 22:50 75 13 110/73 08/15/20 22:31 71 23 96 08/15/20 22:21 69 13 97 08/15/20 22:20 70 19 87/52 L 97 08/15/20 22:16 73 16 97 08/15/20 22:15 70 13 95/46 L 98 08/15/20 22:10 71 14 87/50 L 98 08/15/20 22:05 72 15 88/45 L 99 08/15/20 22:01 73 15 98 08/15/20 22:00 71 16 94/47 L 98 08/15/20 21:56 74 20 97 08/15/20 21:55 75 19 93/55 L 97 08/15/20 21:50 78 18 95 08/15/20 21:40 73 16 99 08/15/20 21:36 76 18 98 08/15/20 21:35 75 21 94/52 L 99 08/15/20 21:32 75 12 99/52 L 98 08/15/20 21:31 73 22 99 08/15/20 21:30 74 18 111/72 98 08/15/20 21:27 74 21 116/75 91
[2020-08-16] MEDS: PIPERACILLIN/TAZOBACTAM 4.5 GM in DEXTROSE 5% 100 ML IV SCH ×2 (10:25→18:10)
--- NOTE | 2020-08-16 12:45 | Gastrointestinal Consultation ---
Date of Consultation August 16, 2020 Assessment & Plan (1) Acute hepatic encephalopathy: (2) Alcoholic cirrhosis: (3) Alcoholic hepatitis: MELD >30 and DF >32, decompensated cirrhosis with alcoholic hepatitis and hepatic encephalopathy Recs: --agree with IV steroids 40 mg daily, check Lille score on day 7 of steroids to assess for efficacy --continue rifaximin, lactulose, and zinc for HE --needs strict alcohol cessation/alcohol rehab upon discharge --trend H/H, monitor for signs of GI bleeding while on steroids Thank you for allowing me to participate in the care of this patient. History of Present Illness Attending Physician: Chris Sandhu, DO 59 yo female with hx ETOH cirrhosis, HE, PHG, alcohol abuse, here with confusion. GI consulted for HE. Her family noted her to be disoriented at home and jaundiced, and saw some empty vodka bottles. Patient herself admits that she still drinks alcohol. Also notes short term memory loss and confusion. Denies hematemesis, but notes abdominal swelling/distention. Ammonia noted to be elevated on admission. VSS. labs reviewed. VSS. Allergies Allergy/AdvReac Type Severity Reaction Status Date / Time benzalkonium Allergy Unknown Itchiness,swollen Verified 01/22/19 08:26 reddened eye cephalexin Allergy Unknown Hives Verified 01/22/19 08:26 clonidine Allergy Unknown Itchy rash Verified 01/22/19 08:26 Home Medications Medication Instructions Recorded Confirmed Type Xifaxan 550 mg PO BID 06/12/18 08/15/20 History furosemide 40 mg PO QAM 06/12/18 08/15/20 History lactulose 15 ml PO BID PRN 06/12/18 08/15/20 History magnesium oxide 400 mg PO QAM 06/12/18 08/15/20 History pantoprazole 40 mg PO QAM 06/12/18 08/15/20 History propranolol 10 mg PO BID 06/12/18 08/15/20 History spironolactone 25 mg PO QAM 06/12/18 08/15/20 History thiamine HCl (vitamin B1) 100 mg PO QAM 06/12/18 08/15/20 History mesalamine [Apriso] 1.5 g PO QAM 03/23/19 08/15/20 History multivitamin with folic acid 1 tab PO QAM 08/15/20 08/15/20 History [Tab-A-Kayli] Patient History Medical History (Updated 08/16/20 @ 12:46 by Jagjit Damico MD) Hemochromatosis History of colon polyps Hypertension Nonalcoholic steatohepatitis (SARAH) fatty liver Surgical History History of colonoscopy History of esophagogastroduodenoscopy (EGD) Family History Father Family history of diabetes mellitus Mother Family history of diabetes mellitus Brother Family history of diabetes mellitus 2 Social History Smoking Status: Never smoker Second Hand Exposure: No; Hx Alcohol Use: Yes Alcohol type: hard liquor Hx Substance Use: No Preferred Language: Lithuanian Communication Ability: Effective Pharmacy Customer Care Specialist Required: No Beliefs That Will Affect Care: None Current Living Situation: Alone Current Living Situation Comment: lives with son Feels Safe at Home: Yes Safety Concerns: Feels Safe At This Time Assistive Devices: None Review of Systems Constitutional: no fever, no chills and no weight loss Eyes: as per Subjective / HPI Ear, Nose, Mouth, Throat: as per Subjective / HPI Respiratory: no dyspnea and no dyspnea on exertion Cardiovascular: no chest pain and no palpitations Gastrointestinal: as per Subjective / HPI Musculoskeletal: no joint pain and no swelling Integumentary: no rash and no lesions Neurologic: no numbness and no paresthesia Psychiatric: no depression and no anxiety Endocrine: no fatigue Hematologic / Lymphatic: no easy bleeding and no easy bruising Physical Exam Constitutional: WD/WN, vitals as above Eyes: EOM intact bilaterally Neck: normal visual inspection Respiratory: normal respiratory effort, lungs clear to auscultation Cardiovascular: RRR, no murmur, no edema Gastrointestinal (Abdomen): Inspection/Auscultation: abdomen normal to inspection and + abdomen distended Percussion/Palpation: abdomen soft; abdomen nontender and no hepatosplenomegaly mild asterixis, positive scleral icterus and jaundice of her skin Musculoskeletal: Extremities: no cyanosis Gait: normal gait Skin: no rashes, warm and dry Neurologic: moves all extremities Psychiatric: A+Ox3, euthymic affect Results & Data ([facility]) Vital Signs (Past 12 Hours) Vital Signs Temp Pulse Pulse Resp BP Pulse Ox 08/16/20 11:01 36.4 C L 65 20 98/66 L 96 08/16/20 10:18 71 08/16/20 08:00 36.4 C L 63 22 112/78 94 08/16/20 05:09 36.4 C L 65 18 94/64 L 96 08/16/20 01:28 75 08/16/20 00:57 36.4 C L 73 16 101/71 98 PG Care Time/CCT Total # of Minutes Spent Total Time Spent with Patient: Total time spent is greater than 50% in coordination of care (as documented) at patient's floor/unit and/or counseling patient: Coding Level of Care Code 80130 Inpt Consult Level 4 Diagnoses Acute hepatic encephalopathy K72.00 Alcoholic cirrhosis K70.31 Ascites presence: with ascites Alcoholic hepatitis K70.10 (1) Alcoholic cirrhosis Ascites presence: with ascites Qualified Code(s): K70.31 - Alcoholic cirrhosis of liver with ascites
[2020-08-16] MEDS: APRISO~ORDER AWAITING ACTION SCH (20:38)
[2020-08-17] MEDS: APRISO~ORDER AWAITING ACTION SCH ×4 (00:30→23:02)
[2020-08-17] MEDS: PIPERACILLIN/TAZOBACTAM 4.5 GM in DEXTROSE 5% 100 ML IV SCH ×3 (01:51→18:14)
[2020-08-17] MEDS: GABAPENTIN 600 MG TAB PO SCH ×2 (05:53→12:58)
[2020-08-17 06:36] LABS: Mean Corpuscular Hgb Conc 36.4 g/dL (32-36); Nucleated RBC # (auto) 0.09 K/uL (0-0); Nucleated RBC % (auto) 0.8 %
[2020-08-17 06:49] LABS: Mean Corpuscular Hemoglobin 32.5 pg (25-34); Mean Corpuscular Volume 89.4 fL (80-100); RDW Coefficient of Variation 18.6 % (11.5-14.5); RDW Standard Deviation 59.1 fL (36.4-46.3); Red Blood Count 3.69 M/uL (4.2-5.4)
[2020-08-17 06:53] LABS: INR 3.5 (0.9-1.1)
[2020-08-17 06:58] LABS: Platelet Count 85 K/uL (130-400)
[2020-08-17 07:16] LABS: Alanine Aminotransferase 54 U/L (12-78); Albumin Level 1.5 gm/dl (3.4-5.0); Aspartate Aminotransferase 126 U/L (15-37); Blood Urea Nitrogen 12 mg/dl (7-18); Calcium 8.1 mg/dl (8.5-10.1); Carbon Dioxide 20 mmol/L (21-32); Chloride 97 mmol/L (98-107); Glucose 130 mg/dl (70-99); Potassium 2.9 mmol/L (3.5-5.1); Sodium 132 mmol/L (136-145)
[2020-08-17 07:19] LABS: Alkaline Phosphatase 219 U/L (45-117); Bilirubin,Total 22.9 mg/dl (0.2-1)
[2020-08-17] MEDS: POTASSIUM CHLORIDE / WTR 10 MEQ/100 ML PLCT IV SCH ×3 (08:40→10:42)
[2020-08-17] MEDS: CEROVITE ADV FORMULA TAB PO SCH (08:43)
[2020-08-17] MEDS: LACTULOSE SYRUP 30 GM/45 ML UDP PO SCH ×4 (08:43→20:52)
[2020-08-17] MEDS: MAGNESIUM OXIDE 400 MG TAB PO SCH (08:43)
[2020-08-17] MEDS: PANTOprazole 40 MG TAB PO SCH (08:43)
[2020-08-17] MEDS: PROPRANOLOL HCL 10 MG TAB PO SCH ×2 (08:43→20:53)
[2020-08-17] MEDS: rifAXIMin 550 MG TABLET PO SCH ×2 (08:44→20:53)
--- NOTE | 2020-08-17 08:58 | Hospitalist Progress Note ---
Date of Service August 17, 2020 Assessment & Plan (1) Acute hepatic encephalopathy: (2) Hyponatremia: (3) Abdominal ascites: (4) Hypokalemia: (5) Thrombocytopenia: (6) Alcoholic cirrhosis: (7) Hyperbilirubinemia: (8) Elevated INR: (9) Anxiety: (10) Hypertension: (11) Hemochromatosis associated with compound heterozygous mutation in HFE gene: ASSESSMENT AND PLAN: This is a 59-year-old female brought in because of confusion and found to have hepatic encephalopathy. 1. Hepatic encephalopathy, history of alcohol liver cirrhosis. Ammonia on admission was 107, now 79. The patient does not remember taking lactulose. We will place her on lactulose 30 grams q.i.d. and also continue home Xifaxan 550 mg b.i.d. Serial ammonia levels in a.m. Closely monitor in the tele floor. Gentle fluids. Hold her diuretics. Consult GI. 2. Hyponatremia, sodium 128. Getting gentle fluids. Holding diuretics. Follow the labs. 3. Hypokalemia. Potassium 2.9. Replete as needed 4. Acute kidney injury. Creatinine 1.9. Holding diuretics. Hold nephrotoxic agents. Getting gentle fluids. Follow the repeat labs in a.m. 5. Prolonged QTc of 577, avoid QT prolonging drugs. Follow repeat EKG in a.m. 6. Acute hepatitis, most likely alcoholic hepatitis. The patient is still drinking alcohol. Total bilirubin is 26.3. Her MELD score is 38 and discriminant function is 102, needs counseling. Started on IV methylprednisone 40 mg daily. Follow the repeat labs. GI consulted. 7. Alcoholism, still drinking 2 shots of vodka everyday. last drink was 2 days ago. We will follow for withdrawals. Starting on gabapentin and IV Ativan p.r.n., banana bag, IV thiamine, IV folic acid in a.m. 8. Mild elevation of TSH. We will follow the repeat labs in a.m. 9. Liver cirrhosis. Esophageal varices. Continue propranolol with holding parameters. Holding diuretics. getti g gentle fluids. Will monitor for volume overload. Possible SBP? Iv Zosyn. Also order ultrasound-guided paracentesis, diagnostic and therapeutic whenever able to do. Needs albumin prior to paracentesis if large volume is taken out. 10.. Thrombocytopenia secondary to cirrhosis. Platelets of 96 . We will follow repeat labs. 11. Elevated INR 3.1. We will give a dose of vitamin K. Follow the repeat INR in a.m. 12. Deep venous thrombosis prophylaxis, sequential compression devices. DISPOSITION: Tele floor. Full code, PT and OT prior to discharge. Social service to help with discharge planning. Addendum: Paracentesis is not done on weekends. GI on case. Labs Checked ROS-No Headache, No Visual Changes, No Nausea, No Vomiting, No Fever, No Chills, No Neck Pain or Stiffness, No Chest Pain, No Palpitations, No SOB, No HAMMOND, No Cough, No Sputum, No Wheezing, No Abdominal Pain, No Diarrhea, No Hematemesis, No Hemoptysis, No Unexpected Weight Loss, No Flank pain, No Melena, No Hematochezia, No Frequency, No Urgency, No Burning, No Hematuria, No Rashes, No Diaphoresis. Appetite is Normal Physical Exam Gen-AAO x 3, NAD, Afebrile, Jaundiced, Obese Head-NCAT, EOMI, PERRLA, Icteric Sclera, No Posterior Pharyngeal Erythema Neck-Supple, No JVD, No Thyromegaly, No Masses, No LAD, No Bruits Lungs-Clear to Auscultation Bilaterally, No Rales, No Rhonchi, No Wheezing, No Crepitus Chest-No S4, +S1, +S2, No S3, No Murmurs, No Rubs, No Gallops, No Ectopy Abdomen-Soft, Bowel Sounds Present, Non Tender, Non Distended, No Hepatomegaly, No Splenomegaly, No Palpable Masses, No Rebound, No Rigidity, No Guarding Musculoskeletal-Full Range of Motion Bilaterally, No CVAT Extremities-No Cyanosis, No Clubbing, No Edema Nuero-Cranial Nerves II-XII grossly intact, Motor WNL, DTRs WNL, Strength WNL, Non Focal Psych-Normal Mood Admission and Anticipated Discharge Date Admission Date: August 15, 2020 Results & Data Results & Data ([facility]) Vital Signs (Past 12 Hours) Vital Signs Temp Pulse Pulse Resp BP Pulse Ox 08/17/20 08:02 36.6 C 68 16 90/62 L 94 08/17/20 04:18 36.6 C 65 18 99/63 L 93 08/17/20 00:00 65 02/06/21 23:28 36.6 C 61 18 97/62 L 93 (1) Abdominal ascites Ascites type: due to alcoholic cirrhosis Qualified Code(s): K70.31 - Alcoholic cirrhosis of liver with ascites (2) Alcoholic cirrhosis Ascites presence: with ascites Qualified Code(s): K70.31 - Alcoholic cirrhosis of liver with ascites
[2020-08-17] MEDS: methylPREDNISolone 40 MG in SYRINGE 0 ML IV SCH (09:13)
[2020-08-17] MEDS: THIAMINE HCL 100 MG in SYRINGE 9 ML IV SCH (09:13)
[2020-08-17] MEDS: FOLIC ACID 1 MG in SYRINGE 9.8 ML IV SCH (09:13)
--- NOTE | 2020-08-17 11:04 | Electrocardiogram Report ---
Test Reason : Blood Pressure : / mmHG Vent. Rate : 077 BPM Atrial Rate : 077 BPM P-R Int : 144 ms QRS Dur : 088 ms QT Int : 510 ms P-R-T Axes : -11 010 114 degrees QTc Int : 577 ms Poor data quality, interpretation may be adversely affected Normal sinus rhythm Nonspecific ST and T wave abnormality Prolonged QT Abnormal ECG When compared with ECG of 22-JUN-2016 07:06, Premature atrial complexes are no longer Present Questionable change in QRS axis T wave inversion now evident in Anterior leads QT has lengthened Confirmed by Abebe Herzog ([id number]) on 08/17/2020 11:03:57 AM Referred By: REFERRED SELF Confirmed By:Abebe Herzog
--- NOTE | 2020-08-17 11:17 | Electrocardiogram Report ---
Test Reason : Blood Pressure : / mmHG Vent. Rate : 072 BPM Atrial Rate : 072 BPM P-R Int : 150 ms QRS Dur : 080 ms QT Int : 566 ms P-R-T Axes : 051 042 038 degrees QTc Int : 619 ms Poor data quality, interpretation may be adversely affected Sinus rhythm Low voltage QRS Prolonged QT Abnormal ECG When compared with ECG of 15-AUG-2020 18:30, (unconfirmed) T wave inversion no longer evident in Anterior leads Confirmed by Abebe Herzog ([id number]) on 08/17/2020 11:17:04 AM Referred By: REFERRED SELF Confirmed By:Abebe Herzog
--- NOTE | 2020-08-17 12:36 | Nephrology Consultation ---
Date of Consultation August 17, 2020 Assessment & Plan (1) MANDA (acute kidney injury): Patient with acute kidney injury likely due to hepatorenal syndrome. She has decompensated cirrhosis and admitted with hepatic encephalopathy. Blood pressure is low. Patient is oliguric. Creatinine of 1.9, unclear baseline. She has not responded to IV fluids. -We will start her on therapy for hepatorenal syndrome with midodrine 10 mg 3 times daily, octreotide 100 mcg daily subcu and 75 g of albumin daily for at least 48 hours -Monitor input output -Avoid nephrotoxins (2) Acute hepatic encephalopathy: Patient is on lactulose per primary team. Mental status appears to be improving. Discussed need to quit alcohol. Patient promises to quit alcohol. (3) Hypokalemia: Continue aggressive potassium chloride supplementation. Patient will need at least 40 mEq of potassium chloride today. Monitor potassium daily. History of Present Illness Reason for Consultation: Acute kidney injury Requesting Physician: Dr. Craig Attending Physician: Chris Sandhu DO History of Present Illness This is a 59-year-old female with decompensated alcoholic cirrhosis complicated by ascites and hepatic encephalopathy, hypertension, obesity, active alcohol abuse who was admitted on 08/16/2020 with the altered mental status. Patient lives alone but the son visits every now and then. During recent visit, son found the patient confused and deeply yellow which prompted calling the ambulance. Patient was noted to have acute kidney injury with creatinine of 1.9 on admission. Unclear baseline but appears to have normal renal function at baseline. Potassium was low at 2.9 and elevated liver enzymes. Urinalysis showed 1030 WBCs but 0-4 RBCs per high-power field. Blood pressure has been low between 80s to 90s systolic. She feels better this morning denies any confusion no shortness of breath. Main complaint is leg swelling. She denied NSAID use. She drinks 3 to 4 glasses of vodka daily. She is reportedly passing urine although no urine output recorded in the chart. CT abdomen showed no hydronephrosis. Allergies Allergy/AdvReac Type Severity Reaction Status Date / Time benzalkonium Allergy Unknown Itchiness,swollen Verified 01/22/19 08:26 reddened eye cephalexin Allergy Unknown Hives Verified 01/22/19 08:26 clonidine Allergy Unknown Itchy rash Verified 01/22/19 08:26 Home Medications Medication Instructions Recorded Confirmed Type Xifaxan 550 mg PO BID 12/03/18 02/05/21 History furosemide 40 mg PO QAM 06/12/18 08/15/20 History lactulose 15 ml PO BID PRN 06/12/18 08/15/20 History magnesium oxide 400 mg PO QAM 06/12/18 08/15/20 History pantoprazole 40 mg PO QAM 06/12/18 08/15/20 History propranolol 10 mg PO BID 06/12/18 08/15/20 History spironolactone 25 mg PO QAM 06/12/18 08/15/20 History thiamine HCl (vitamin B1) 100 mg PO QAM 06/12/18 08/15/20 History mesalamine [Apriso] 1.5 g PO QAM 03/23/19 08/15/20 History multivitamin with folic acid 1 tab PO QAM 08/15/20 08/15/20 History [Tab-A-Kayli] Patient History Medical History (Updated 08/17/20 @ 12:34 by Marquis Gregorio MD) Hemochromatosis History of colon polyps Hypertension Nonalcoholic steatohepatitis (SARAH) fatty liver Surgical History History of colonoscopy History of esophagogastroduodenoscopy (EGD) Family History Father Family history of diabetes mellitus Mother Family history of diabetes mellitus Brother Family history of diabetes mellitus 2 Social History Smoking Status: Never smoker Second Hand Exposure: No; Hx Alcohol Use: Yes Alcohol type: hard liquor Hx Substance Use: No Preferred Language: Libyan Communication Ability: Effective Simplex [employer] Installer Required: No Beliefs That Will Affect Care: None Current Living Situation: Alone Current Living Situation Comment: lives with son Feels Safe at Home: Yes Safety Concerns: Feels Safe At This Time Assistive Devices: None Review of Systems Review of Systems: All systems reviewed & are unremarkable except as noted in HPI & below Physical Exam Physical Exam: General exam: Appears comfortable, no acute distress HEENT: Pupils are equal and reactive to light. Deep jaundice Neck: No JVD, neck is supple trachea is midline Respiratory system: Clear breath sounds bilaterally. Gastrointestinal: Abdomen is soft, non distended, non tender, bowel sounds are present CVS: Regular rate and rhythm. No murmurs, rubs or gallops Musculoskeletal: No joint or muscle tenderness Extremities: Non tender, 2+ edema, peripheral pulses are present Neuro: Oriented, no tremors, no focal neurological deficits Skin: No rashes, deep jaundice Results & Data ([facility]) Vital Signs (Past 12 Hours) Vital Signs Temp Pulse Pulse Resp BP Pulse Ox 08/17/20 12:06 36.6 C 62 16 82/58 L 95 08/17/20 10:23 64 08/17/20 08:02 36.6 C 68 16 90/62 L 94 08/17/20 04:18 36.6 C 65 18 99/63 L 93 Laboratory Results 08/17/20 05:53 08/17/20 08/17/20 05:53 05:53 WBC 11.60 H RBC 3.69 L MCV 89.4 MCH 32.5 MCHC 36.4 H RDW Std Deviation 59.1 H RDW Coeff of Daniel 18.6 H Plt Count 85 L Albumin 1.5 L
[2020-08-17] MEDS: OCTREOTIDE ACETATE 100 MCG/ML VIAL SQ SCH ×2 (14:03→21:43)
[2020-08-17] MEDS: ALBUMIN 25% 12.5 GM/50 ML VIAL IV SCH ×6 (14:03→19:28)
[2020-08-17] MEDS: MIDODRINE HCL 10 MG TAB PO SCH (17:15)
[2020-08-18] MEDS: GABAPENTIN 600 MG TAB PO SCH ×2 (02:04→13:10)
[2020-08-18] MEDS: PIPERACILLIN/TAZOBACTAM 4.5 GM in DEXTROSE 5% 100 ML IV SCH ×3 (02:06→17:23)
[2020-08-18 06:14] LABS: Hematocrit (blood only) 30.1 % (37-47); Mean Corpuscular Hemoglobin 32.9 pg (25-34); Mean Corpuscular Hgb Conc 36.5 g/dL (32-36); Mean Corpuscular Volume 90.1 fL (80-100); Nucleated RBC # (auto) 0.06 K/uL (0-0); Nucleated RBC % (auto) 0.8 %; RDW Coefficient of Variation 18.9 % (11.5-14.5); Red Blood Count 3.34 M/uL (4.2-5.4); White Blood Count 8.21 K/uL (4.8-10.8)
[2020-08-18] MEDS: OCTREOTIDE ACETATE 100 MCG/ML VIAL SQ SCH ×3 (06:14→21:29)
[2020-08-18 06:24] LABS: Mean Platelet Volume 11.3 fL (7.4-10.4); Platelet Count 70 K/uL (130-400)
[2020-08-18 07:33] LABS: Prothrombin Time 30.2 Seconds (9.0-12.0)
[2020-08-18 07:35] LABS: INR 3.3 (0.9-1.1)
[2020-08-18] MEDS: PANTOprazole 40 MG TAB PO SCH (09:01)
[2020-08-18] MEDS: LACTULOSE SYRUP 30 GM/45 ML UDP PO SCH (09:01)
[2020-08-18] MEDS: MAGNESIUM OXIDE 400 MG TAB PO SCH (09:01)
[2020-08-18] MEDS: CEROVITE ADV FORMULA TAB PO SCH (09:01)
[2020-08-18] MEDS: PROPRANOLOL HCL 10 MG TAB PO SCH ×2 (09:01→21:28)
[2020-08-18] MEDS: rifAXIMin 550 MG TABLET PO SCH ×2 (09:02→21:29)
[2020-08-18] MEDS: methylPREDNISolone 40 MG in SYRINGE 0 ML IV SCH (09:05)
[2020-08-18] MEDS: MIDODRINE HCL 10 MG TAB PO SCH ×3 (09:06→17:24)
[2020-08-18] MEDS: THIAMINE HCL 100 MG in SYRINGE 9 ML IV SCH (09:06)
[2020-08-18] MEDS: FOLIC ACID 1 MG in SYRINGE 9.8 ML IV SCH (09:06)
--- NOTE | 2020-08-18 10:33 | Hospitalist Progress Note ---
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 1. Hepatic encephalopathy, history of alcohol liver cirrhosis. Ammonia on admission was 107, now 79. The patient does not remember taking lactulose. We increase her lactulose to 45 grams q.i.d. and continue home Xifaxan 550 mg b.i.d. Serial ammonia levels. Tele floor. Gentle fluids. Hold her diuretics. GI on case 2. Hyponatremia, sodium 128. 3. Hypokalemia. Potassium 2.9. Replete as needed 4. Acute kidney injury. Creatinine 1.9. Holding diuretics. Hold nephrotoxic agents. Getting gentle fluids. Follow the repeat labs in a.m. 5. Prolonged QTc of 577, avoid QT prolonging drugs. Follow repeat EKG in a.m. 6. Acute hepatitis, most likely alcoholic hepatitis. The patient is still drinking alcohol. Total bilirubin is 26.3. Her MELD score is 38 and discriminant function is 102, needs counseling. Started on IV methylprednisone 40 mg daily. Follow the repeat labs. GI consulted. 7. Alcoholism, still drinking 2 shots of vodka everyday. last drink was 2 days ago. We will follow for withdrawals. Starting on gabapentin and IV Ativan p.r.n., banana bag, IV thiamine, IV folic acid in a.m. 8. Mild elevation of TSH. We will follow the repeat labs in a.m. 9. Liver cirrhosis. Esophageal varices. Continue propranolol with holding parameters. Holding diuretics. getti g gentle fluids. Will monitor for volume overload. Possible SBP? IV Zosyn. Also order ultrasound-guided paracentesis, diagnostic and therapeutic whenever able to do. Needs albumin prior to paracentesis if large volume is taken out. 10.. Thrombocytopenia secondary to cirrhosis. Platelets of 96 . We will follow repeat labs. 11. Elevated INR 3.1. We will give a dose of vitamin K. Follow the repeat INR in a.m. 12. Deep venous thrombosis prophylaxis, sequential compression devices. DISPOSITION: Tele floor. Full code, PT and OT prior to discharge. Social service to help with discharge planning. Addendum: Paracentesis is not done on weekends. GI on case. Labs Checked ROS-No Headache, No Visual Changes, No Nausea, No Vomiting, No Fever, No Chills, No Neck Pain or Stiffness, No Chest Pain, No Palpitations, No SOB, No HAMMOND, No Cough, No Sputum, No Wheezing, No Abdominal Pain, No Diarrhea, No Hematemesis, No Hemoptysis, No Unexpected Weight Loss, No Flank pain, No Melena, No Hematochezia, No Frequency, No Urgency, No Burning, No Hematuria, No Rashes, No Diaphoresis. Appetite is Normal Physical Exam Gen-AAO x 3, NAD, Afebrile, Jaundiced, Obese Head-NCAT, EOMI, PERRLA, Icteric Sclera, No Posterior Pharyngeal Erythema Neck-Supple, No JVD, No Thyromegaly, No Masses, No LAD, No Bruits Lungs-Clear to Auscultation Bilaterally, No Rales, No Rhonchi, No Wheezing, No C repitus Chest-No S4, +S1, +S2, No S3, No Murmurs, No Rubs, No Gallops, No Ectopy Abdomen-Soft, Bowel Sounds Present, Non Tender, Distended, No Hepatomegaly, No Splenomegaly, No Palpable Masses, No Rebound, No Rigidity, No Guarding Musculoskeletal-Full Range of Motion Bilaterally, No CVAT Extremities-No Cyanosis, No Clubbing, No Edema Nuero-Cranial Nerves II-XII grossly intact, Motor WNL, DTRs WNL, Strength WNL, Non Focal Psych-Normal Mood Admission and Anticipated Discharge Date Admission Date: August 15, 2020 Results & Data Results & Data ([facility]) Vital Signs (Past 12 Hours) Vital Signs Temp Pulse Pulse Resp BP Pulse Ox 08/18/20 08:07 36.4 C L 71 19 115/73 96 08/18/20 04:36 36.4 C L 65 18 103/72 95 08/18/20 00:32 36.4 C L 66 18 110/71 95 08/17/20 23:31 72 (1) Abdominal ascites Ascites type: due to alcoholic cirrhosis Qualified Code(s): K70.31 - Alcoholic cirrhosis of liver with ascites (2) Alcoholic cirrhosis Ascites presence: with ascites Qualified Code(s): K70.31 - Alcoholic cirrhosis of liver with ascites
--- NOTE | 2020-08-18 11:59 | Gastroenterology Progress Note ---
Date of Service August 18, 2020 Assessment & Plan (1) Alcoholic hepatitis: (2) Acute hepatic encephalopathy: (3) Alcoholic cirrhosis: (4) Hemochromatosis associated with compound heterozygous mutation in HFE gene: Pt is a 59 y/o female w hx of Hemochromatosis, ETOH cirrhosis, admitted w hepatic encephalopathy & likely ETOH hepatitis. Unable to calculate MELD (Cr unavailable due to icteric sample), Maddreys >32. - Prednisolone 40mg daily, will calc Lille score on day 7 to assess if continuing steroids will be beneficial or not - US paracentesis w fluid analysis, cell ct, cx - Continue Lactulose and Xifaxan ; goal BM 3-5x a day - Strict ETOH cessation - Will arrange GI f/u upon her DC for continued cirrhosis management ; hasn't been seen in GI clinic since 2019 Admission and Anticipated Discharge Date Admission Date: August 15, 2020 Supervising Physician Co-Signing Physician Notes Attending attestation I have seen, examined this patient, and agree with the findings and above by our mid-level provider STEFFANIE [place], with the following additions: mild cognitive slowing, no leonel asterixis agree with treatment above Subjective Pt denies CP, SOB, abd pain, n/v. Feel abd is distended but denies difficulty breathing or loss of appetite. Desires to go home. Review of Systems Review of Systems: All systems reviewed & are unremarkable except as noted in HPI & below Physical Exam Constitutional: + ill appearing, + frail appearing, well groomed, cooperative and comfortable Eyes: + scleral abnormality (icteric sclera) and PERRL ENMT: external ear and nose normal, oropharynx normal Respiratory: no respiratory distress and does not use accessory muscles Auscultation: + diminished lung sounds Cardiovascular: RRR, no murmur, no edema Gastrointestinal (Abdomen): Inspection/Auscultation: + abdomen distended (mildly distended) and + hypoactive bowel sounds Percussion/Palpation: abdomen nontender Skin: no rashes, warm and dry + jaundice Neurologic: Motor/Sensory: + asterixis (mild asterixis) Psychiatric: A+Ox3, euthymic affect mentation slow Lymphatic: no lymphedema Results & Data ([facility]) Vital Signs (Past 12 Hours) Vital Signs Temp Pulse Resp BP Pulse Ox 08/18/20 11:16 36.4 C L 63 19 117/73 97 08/18/20 08:07 36.4 C L 71 19 115/73 96 08/18/20 04:36 36.4 C L 65 18 103/72 95 08/18/20 00:32 36.4 C L 66 18 110/71 95 (1) Alcoholic cirrhosis Ascites presence: with ascites Qualified Code(s): K70.31 - Alcoholic cirrhosis of liver with ascites
[2020-08-18] MEDS ORDERED: PHYTONADIONE 10 MG in SODIUM CHLORIDE 0.9% 50 ML IV ONE (12:00)
[2020-08-18] MEDS ORDERED: prednisoLONE SYRUP 15 MG/5 ML BTL PO ONE (12:00)
[2020-08-18] MEDS ORDERED: LACTULOSE SYRUP 10 GM/15 ML BTL 960 ML PO SCH (13:00)
[2020-08-18] MEDS: LACTULOSE SYRUP 10 GM/15 ML BTL 960 ML PO SCH ×3 (13:10→21:27)
--- NOTE | 2020-08-18 16:46 | Nephrology Progress Note ---
Date of Service August 18, 2020 Assessment & Plan (1) MANDA (acute kidney injury): Patient with acute kidney injury attributed to hepatorenal syndrome. She has decompensated cirrhosis and admitted with hepatic encephalopathy. Creatinine of 1.9, unclear baseline; on POC/suboptimal specimen w/o ability to f/u levels d/t icteric specimeens. -on 08/17 started therapy for hepatorenal syndrome with midodrine 10 mg 3 times daily, octreotide 100 mcg daily subcu and 75 g of albumin daily for at least 48 hours -Monitor input output -Avoid nephrotoxins -started 1.5L FR adn <2 gm daily Na diet (2) Acute hepatic encephalopathy: Patient is on lactulose per primary team. Mental status appears to be still impaired somewhat but stable. per primary service and gi (3) Hypokalemia: not on standing potassium and endorses frequent bmp on lactulose > last K 2.9 >urgent bmp; replete as indicated pending result Admission and Anticipated Discharge Date Admission Date: August 15, 2020 Subjective seen on rounds at about 1415; waiting for a paracentesis for later today; repeatedly denies c/o pain, sob, worsening/bothersome abd girth, worsening edema, voiding concerns. Review of Systems Review of Systems: All systems reviewed & are unremarkable except as noted in Subjective Physical Exam Constitutional: well developed and + obese; no acute distress Eyes: EOM intact bilaterally; sclerae not anicteric ENMT: Ears: no external ear abnormality Nose: no external nose abnormality Mouth: + dry oral mucous membranes Neck: no nuchal rigidity Respiratory: normal respiratory effort Auscultation: lungs clear to auscult ation bilaterally and + diminished lung sounds Cardiovascular: Rate/Rhythm: regular rate and regular rhythm Extremities: + edema (4+ BLE to hips) Gastrointestinal (Abdomen): Inspection/Auscultation: + abdomen distended and normal bowel sounds Percussion/Palpation: abdomen soft and + ascites; abdomen nontender Musculoskeletal: no cyanosis or clubbing, extremities motor strength 5/5 Extremities: strength 5/5 throughout Skin: no rashes, warm and dry + jaundice Neurologic: veronica, fluent speech, no tremor Psychiatric: Orientation: alert and oriented x 3 Eye Contact: good eye contact Speech: normal rate/rhythm/volume of speech Results & Data ([facility]) Vital Signs (Past 12 Hours) Vital Signs Temp Pulse Resp BP Pulse Ox 08/18/20 15:37 36.6 C 61 19 147/83 H 98 08/18/20 11:16 36.4 C L 63 19 117/73 97 08/18/20 08:07 36.4 C L 71 19 115/73 96 Laboratory Results 08/18/20 05:55 08/17/20 05:53
[2020-08-18 17:58] LABS: Blood Urea Nitrogen 17 mg/dl (7-18); Calcium 8.3 mg/dl (8.5-10.1); Carbon Dioxide 21 mmol/L (21-32); Chloride 102 mmol/L (98-107); Creatinine Clr Calc Pharmacy 31.8 ml/min; Est GFR (African American) 26.1; Est GFR (Non-African American) 22.5; Glucose 160 mg/dl (70-99); Potassium 2.7 mmol/L (3.5-5.1); Sodium 136 mmol/L (136-145)
[2020-08-18] MEDS ORDERED: POTASSIUM CHLORIDE CRTAB 20 MEQ TABCR PO STA (19:42)
[2020-08-18] MEDS: POTASSIUM CHLORIDE / WTR 10 MEQ/100 ML PLCT IV SCH ×2 (21:00→22:20)
[2020-08-18] MEDS: APRISO~ORDER AWAITING ACTION SCH ×3 (21:26→23:19)
[2020-08-19 00:10] LABS: Nucleated RBC # (auto) 0.16 K/uL (0-0); Nucleated RBC % (auto) 1.6 %
[2020-08-19 00:14] LABS: Base Excess ABG -4.9 mEq/L (-9-1.8); HCO3 ABG 19 mmol/L (19-24); Oxygen Saturation ABG 96.8 % (90-95); PCO2 ABG 33 mmHg (35-46); PO2 ABG 89 mmHg (80-95); pH ABG 7.38 (7.35-7.45)
[2020-08-19 00:22] LABS: Allen Test Pos (Pos)
[2020-08-19 00:42] LABS: Aspartate Aminotransferase 130 U/L (15-37); Potassium 4.4 mmol/L (3.5-5.1)
[2020-08-19] MEDS ORDERED: LACTULOSE SYRUP 30 GM/45 ML UDP PO STA (00:45)
[2020-08-19 00:46] LABS: Alanine Aminotransferase 56 U/L (12-78); Albumin Level 2.6 gm/dl (3.4-5.0); Alkaline Phosphatase 162 U/L (45-117); Bilirubin,Total 27.2 mg/dl (0.2-1); Blood Urea Nitrogen 18 mg/dl (7-18); Calcium 8.2 mg/dl (8.5-10.1); Carbon Dioxide 21 mmol/L (21-32); Chloride 104 mmol/L (98-107); Glucose 145 mg/dl (70-99); Sodium 136 mmol/L (136-145)
[2020-08-19 00:52] LABS: Hematocrit (blood only) 31.6 % (37-47); Hemoglobin 11.3 g/dL (12.0-16.0); Mean Corpuscular Hgb Conc 35.8 g/dL (32-36); Mean Corpuscular Volume 89.5 fL (80-100); Platelet Count 111 K/uL (130-400); RDW Coefficient of Variation 19.3 % (11.5-14.5); Red Blood Count 3.53 M/uL (4.2-5.4); White Blood Count 10.13 K/uL (4.8-10.8)
[2020-08-19 00:55] LABS: Basophils # (auto) 0.02 K/uL (0-0.2); Basophils % (auto) 0.2 %; Echinocytes 1+; Immature Granulocytes # (auto) 0.17 K/uL (0.00-0.02); Immature Granulocytes % (auto) 1.7 %; Lymphocytes # (auto) 0.93 K/uL (1.2-3.4); Lymphocytes % (auto) 9.2 %; Monocytes # (auto) 0.77 K/uL (0.11-0.59); Monocytes % (auto) 7.6 %; Neutrophils # (auto) 8.24 K/uL (1.4-6.5); Neutrophils % (auto) 81.3 %; Pappenheimer Bodies 1+; Platelet Estimate Decreased (Normal); Polychromasia 1+; Target Cells 1+
[2020-08-19] MEDS ORDERED: LACTULOSE 200 GM, WATER, STERILE IRRIG 700 ML, BARCODE IDENTIFIER 1 EA PR SCH (01:00)
[2020-08-19] MEDS ORDERED: SODIUM CHLORIDE 0.9% 1000ML 1,000 ML IV SCH (01:15)
[2020-08-19] MEDS: PIPERACILLIN/TAZOBACTAM 4.5 GM in DEXTROSE 5% 100 ML IV SCH ×3 (01:20→18:40)
[2020-08-19 05:42] LABS: Hematocrit (blood only) 30.6 % (37-47); Hemoglobin 11.2 g/dL (12.0-16.0); Mean Corpuscular Hemoglobin 32.8 pg (25-34); Mean Corpuscular Hgb Conc 36.6 g/dL (32-36); Mean Corpuscular Volume 89.7 fL (80-100); Nucleated RBC # (auto) 0.12 K/uL (0-0); Nucleated RBC % (auto) 1.3 %; RDW Standard Deviation 59.5 fL (36.4-46.3); Red Blood Count 3.41 M/uL (4.2-5.4); White Blood Count 9.33 K/uL (4.8-10.8)
[2020-08-19 05:45] LABS: Mean Platelet Volume 10.9 fL (7.4-10.4); Platelet Count 60 K/uL (130-400)
[2020-08-19] MEDS: OCTREOTIDE ACETATE 100 MCG/ML VIAL SQ SCH ×3 (06:08→22:58)
[2020-08-19 06:34] LABS: Alanine Aminotransferase 51 U/L (12-78); Albumin Level 2.5 gm/dl (3.4-5.0); Alkaline Phosphatase 159 U/L (45-117); Aspartate Aminotransferase 105 U/L (15-37); Bilirubin,Total 27.6 mg/dl (0.2-1); Blood Urea Nitrogen 19 mg/dl (7-18); Calcium 8.1 mg/dl (8.5-10.1); Carbon Dioxide 24 mmol/L (21-32); Chloride 107 mmol/L (98-107); Glucose 143 mg/dl (70-99); Sodium 141 mmol/L (136-145)
[2020-08-19 07:20] LABS: Prothrombin Time 24.6 Seconds (9.0-12.0)
[2020-08-19 07:22] LABS: INR 2.6 (0.9-1.1)
--- NOTE | 2020-08-19 08:40 | Hospitalist Progress Note ---
Date of Service August 19, 2020 Assessment & Plan (1) Acute hepatic encephalopathy: (2) Hyponatremia: (3) Abdominal ascites: (4) Hypokalemia: (5) Thrombocytopenia: (6) Alcoholic cirrhosis: (7) Hyperbilirubinemia: (8) Elevated INR: (9) Anxiety: (10) Hypertension: (11) Hemochromatosis associated with compound heterozygous mutation in HFE gene: ASSESSMENT AND PLAN: This is a 59-year-old female brought in because of confusion and found to have hepatic encephalopathy. 1. Hepatic encephalopathy/ Hepatorenal Syndrome-Nephrology on case-2/7 started therapy for hepatorenal syndrome with midodrine 10 mg 3 times daily, octreotide 100 mcg daily subcu and 75 g of albumin daily for at least 48 hours. Ammonia on admission was 107, then 79, then 154, now 102. We increased her lactulose yesterday to 45 grams q.i.d. and her NH3 alex, continue home Xifaxan 550 mg b.i.d. Serial ammonia levels. Hold her diuretics. GI on case 2. Hyponatremia, sodium 141 today. 3. Hypokalemia. Replete as needed 4. Acute kidney injury. Creatinine 1.9. Holding diuretics. Hold nephrotoxic agents. Getting gentle fluids. Follow the repeat labs in a.m. 5. Prolonged QTc of 577, avoid QT prolonging drugs. Follow repeat EKG in a.m. 6. Acute hepatitis, most likely alcoholic hepatitis. The patient is still drinking alcohol. Total bilirubin is 26.3. Her MELD score is 38 and discriminant function is 102, needs counseling. Started on IV methylprednisone 40 mg daily. Follow the repeat labs. GI consulted. 7. Alcoholism, still drinking 2 shots of vodka everyday. Last drink was 2 days [employer]. Starting on gabapentin and IV Ativan p.r.n., banana bag, IV thiamine, IV folic acid in a.m. 8. Mild elevation of TSH. We will follow the repeat labs in a.m. 9. Liver cirrhosis. Esophageal varices. Continue propranolol with holding parameters. Holding diuretics. getting gentle fluids. Will monitor for volume overload. Possible SBP? IV Zosyn. Also order ultrasound-guided paracentesis, diagnostic and therapeutic whenever able to do. Needs albumin prior to paracentesis if large volume is taken out. 10.. Thrombocytopenia secondary to cirrhosis. Platelets of 96 . We will follow repeat labs. 11. Elevated INR. We will give another dose of vitamin K. Follow INRs. 12. Deep venous thrombosis prophylaxis, sequential compression devices. DISPOSITION: Tele floor. Full code, PT and OT prior to discharge. Social service to help with discharge planning. Addendum: Paracentesis soon. GI on case. Labs Checked ROS-No Headache, No Visual Changes, No Nausea, No Vomiting, No Fever, No Chills, No Neck Pain or Stiffness, No Chest Pain, No Palpitations, No SOB, No HAMMOND, No Cough, No Sputum, No Wheezing, No Abdominal Pain, No Diarrhea, No Hematemesis, No Hemoptysis, No Unexpected Weight Loss, No Flank pain, No Melena, No Hematochezia, No Frequency, No Urgency, No Burning, No Hematuria, No Rashes, No Diaphoresis. Appetite is Normal Physical Exam Gen-AAO x 2, NAD, Afebrile, Jaundiced, Obese, Confused today Head-NCAT, EOMI, PERRLA, Icteric Sclera, No Posterior Pharyngeal Erythema Neck-Supple, No JVD, No Thyromegaly, No Masses, No LAD, No Bruits Lungs-Clear to Auscultation Bilaterally, No Rales, No Rhonchi, No Wheezing, No Crepitus Chest-No S4, +S1, +S2, No S3, No Murmurs, No Rubs, No Gallops, No Ectopy Abdomen-Soft, Bowel Sounds Present, Non Tender, Distended, No Hepatomegaly, No Splenomegaly, No Palpable Masses, No Rebound, No Rigidity, No Guarding Musculoskeletal-Full Range of Motion Bilaterally, No CVAT Extremities-No Cyanosis, No Clubbing, No Edema Nuero-Cranial Nerves II-XII grossly intact, Motor WNL, DTRs WNL, Strength WNL, Non Focal Psych-Normal Mood Admission and Anticipated Discharge Date Admission Date: August 15, 2020 Results & Data Results & Data ([facility]) Vital Signs (Past 12 Hours) Vital Signs Temp Pulse Pulse Resp BP Pulse Ox 08/19/20 08:13 36.5 C 115 H 18 125/79 95 08/19/20 04:59 36.5 C 63 20 111/70 94 08/19/20 00:09 62 08/18/20 23:54 36.3 C L 66 20 117/76 97 (1) Abdominal ascites Ascites type: due to alcoholic cirrhosis Qualified Code(s): K70.31 - Alcoholic cirrhosis of liver with ascites (2) Alcoholic cirrhosis Ascites presence: with ascites Qualified Code(s): K70.31 - Alcoholic cirrhosis of liver with ascites
[2020-08-19] MEDS: CEROVITE ADV FORMULA TAB PO SCH (08:58)
[2020-08-19] MEDS: MAGNESIUM OXIDE 400 MG TAB PO SCH (08:58)
[2020-08-19] MEDS: rifAXIMin 550 MG TABLET PO SCH ×2 (08:58→20:04)
[2020-08-19] MEDS: LACTULOSE SYRUP 10 GM/15 ML BTL 960 ML PO SCH (08:58)
[2020-08-19] MEDS: PROPRANOLOL HCL 10 MG TAB PO SCH ×2 (08:58→20:04)
[2020-08-19] MEDS: FOLIC ACID 1 MG in SYRINGE 9.8 ML IV SCH (08:59)
[2020-08-19] MEDS: THIAMINE HCL 100 MG in SYRINGE 9 ML IV SCH (08:59)
[2020-08-19] MEDS: MIDODRINE HCL 10 MG TAB PO SCH ×3 (09:02→17:20)
[2020-08-19] MEDS: PANTOprazole 40 MG TAB PO SCH (09:02)
[2020-08-19] MEDS ORDERED: PHYTONADIONE 10 MG in SODIUM CHLORIDE 0.9% 50 ML IV ONE (09:30)
--- NOTE | 2020-08-19 09:51 | Gastroenterology Progress Note ---
Date of Service August 19, 2020 Assessment & Plan (1) Alcoholic hepatitis: (2) Acute hepatic encephalopathy: (3) Alcoholic cirrhosis: (4) Hemochromatosis associated with compound heterozygous mutation in HFE gene: Pt is a 59 y/o female w hx of Hemochromatosis, ETOH cirrhosis, admitted w hepatic encephalopathy & likely ETOH hepatitis. Also has UTI (Ecoli) Unable to calculate MELD (Cr unavailable due to icteric sample), Maddreys >32. - Replete K - Continue antibx coverage - Prednisolone 40mg daily, will calc Lille score on day 7 to assess if continuing steroids will be beneficial or not - US paracentesis w fluid analysis, cell ct, cx postponed given elevated INR and worsening mental status - Continue Lactulose and Xifaxan ; goal BM 3-5x a day. If unable to take PO meds, will change Lactulose to NC enema - Strict ETOH cessation - Will follow along closely & consider transfer to tertiary care center w liver transplant support if having worsening clinical symptoms to indicate liver failure - Will arrange GI f/u upon her DC for continued cirrhosis management ; hasn't been seen in GI clinic since 2019 Admission and Anticipated Discharge Date Admission Date: August 15, 2020 Supervising Physician Co-Signing Physician Notes Attending attestation I have seen, examined this patient, and agree with the findings and above by our mid-level provider STEFFANIE Washington, with the following additions: - Patient with worsened mental status overnight. Possible component of EtoH withdrawl contributing. - Worsening MELD at 38, renal function is unknown, has component of HRS contributing - Could consider OLT transfer, not sure if would consider based upon substance abuse - Lactulose NC - Monitor and replete K as well as electrolytes - Guarded prognosis, stop steroids given UTI, continue Zosyn - Renal following for ARF Subjective Pt is confused today, unable to obtain history Review of Systems Review of Systems: Unobtainable due to cognitive status Physical Exam Constitutional: + ill appearing and + frail appearing Incontinent of stool in bed Eyes: + scleral abnormality (icteric sclera) and PERRL ENMT: external ear and nose normal, oropharynx normal Respiratory: no respiratory distress and does not use accessory muscles Auscultation: + diminished lung sounds Cardiovascular: RRR, no murmur, no edema Gastrointestinal (Abdomen): Inspection/Auscultation: + abdomen distended (mildly distended) and + hypoactive bowel sounds Percussion/Palpation: abdomen nontender Skin: no rashes, warm and dry + jaundice Neurologic: Motor/Sensory: + asterixis (mild asterixis) Psychiatric: Appears lethargic and confused Lymphatic: no lymphedema Results & Data ([facility]) Vital Signs (Past 12 Hours) Vital Signs Temp Pulse Pulse Resp BP Pulse Ox 08/19/20 08:13 36.5 C 115 H 18 125/79 95 08/19/20 04:59 36.5 C 63 20 111/70 94 08/19/20 00:09 62 08/18/20 23:54 36.3 C L 66 20 117/76 97 (1) Alcoholic cirrhosis Ascites presence: with ascites Qualified Code(s): K70.31 - Alcoholic cirrhosis of liver with ascites
--- NOTE | 2020-08-19 09:57 | Nephrology Progress Note ---
Date of Service August 19, 2020 Assessment & Plan (1) MANDA (acute kidney injury): Patient with acute kidney injury attributed to hepatorenal syndrome. She has decompensated cirrhosis and admitted with hepatic encephalopathy; also w/ E coli UTI on zosyn. Creatinine of 1.9 at admission, unclear baseline; on POC/suboptimal specimen w/o ability to f/u levels reliably d/t icteric specimeens -- creat was 2.3 yesterday pm. -on 08/17 started therapy for hepatorenal syndrome with midodrine 10 mg 3 times daily, octreotide 100 mcg daily subcu and 75 g of albumin daily again for today at least -Monitor input output -Avoid nephrotoxins -cont zosyn for UTI; defer to GI and primary service If zosyn enough to cover empirically for SBP given no paracentesis, worsening lactate, etc -cont 1.5L FR and <2 gm daily Na diet >>stopped NS given her volume overload >> would increase albumin if needed to s upport BP >>note that GI has ordered (2) Acute hepatic encephalopathy: Patient is on lactulose per primary team. Mental status appears to be still impaired. per primary service and gi (3) Hypokalemia: not on standing potassium and endorses frequent bmp on lactulose > last K 3.0 this am >gave 40 po K x 1 -monitor K frequently since we don't know creatinien so repletion challenging>> bmp for 1600 ordered Admission and Anticipated Discharge Date Admission Date: August 15, 2020 Subjective seen on rounds about 1310; ROS limited by lethargy. denies abd pain or sob. Review of Systems Review of Systems: Other (as per HPI) Physical Exam Constitutional: well developed and + obese; no acute distress lying flat in bed on RA, NAD Eyes: EOM intact bilaterally; sclerae not anicteric ENMT: Ears: no external ear abnormality Nose: no external nose abnormality Mouth: + dry oral mucous membranes Neck: no nuchal rigidity Respiratory: normal respiratory effort Auscultation: lungs clear to aus cultation bilaterally and + diminished lung sounds Cardiovascular: Rate/Rhythm: regular rate and regular rhythm Extremities: + edema (3-4+ BLE to hips) Gastrointestinal (Abdomen): Inspection/Auscultation: + abdomen distended and normal bowel sounds Percussion/Palpation: abdomen soft and + ascites; abdomen nontender Musculoskeletal: no cyanosis or clubbing, extremities motor strength 5/5 Extremities: strength 5/5 throughout Skin: no rashes, warm and dry + jaundice Psychiatric: Orientation: alert and oriented x 3 Eye Contact: good eye contact Speech: normal rate/rhythm/volume of speech Results & Data ([facility]) Vital Signs (Past 12 Hours) Vital Signs Temp Pulse Pulse Resp BP Pulse Ox 08/19/20 08:13 36.5 C 115 H 18 125/79 95 08/19/20 04:59 36.5 C 63 20 111/70 94 08/19/20 00:09 62 08/18/20 23:54 36.3 C L 66 20 117/76 97 Laboratory Results 08/19/20 05:25 08/19/20 05:25
[2020-08-19] MEDS ORDERED: POTASSIUM CHLORIDE CRTAB 20 MEQ TABCR PO ONE (10:15)
[2020-08-19] MEDS: ALBUMIN 25% 12.5 GM/50 ML VIAL IV SCH ×4 (12:20→15:20)
[2020-08-19] MEDS: LACTULOSE 200 GM, WATER, STERILE IRRIG 700 ML, BARCODE IDENTIFIER 1 EA PR SCH ×2 (12:20→21:30)
[2020-08-19] MEDS ORDERED: GABAPENTIN 600 MG TAB PO SCH (14:00)
[2020-08-19 16:34] LABS: Calcium 8.6 mg/dl (8.5-10.1); Potassium 2.9 mmol/L (3.5-5.1)
[2020-08-19] MEDS: APRISO~ORDER AWAITING ACTION SCH ×2 (20:03→20:04)
[2020-08-19] MEDS: POTASSIUM CHLORIDE / WTR 10 MEQ/100 ML PLCT IV SCH ×3 (20:10→22:40)
[2020-08-19] MEDS ORDERED: POTASSIUM CHLORIDE 20 MEQ/15 ML UDC PO ONE (22:00)
[2020-08-19] MEDS ORDERED: LACTULOSE SYRUP 30 GM/45 ML UDP PO ONE (22:00)
[2020-08-19] MEDS ORDERED: UNIT DOSE COMPOUND PR SCH (22:00)
[2020-08-19] MEDS ORDERED: LACTULOSE SYRUP 10 GM/15 ML BTL 960 ML PO ONE (22:00)
[2020-08-19] MEDS: LEVALBUTEROL 1.25MG/0.5ML NEB NEB PRN (23:23)
[2020-08-20] MEDS: APRISO~ORDER AWAITING ACTION SCH ×3 (00:07→17:49)
[2020-08-20] MEDS: POTASSIUM CHLORIDE / WTR 10 MEQ/100 ML PLCT IV SCH ×7 (00:08→20:24)
[2020-08-20] MEDS: PIPERACILLIN/TAZOBACTAM 4.5 GM in DEXTROSE 5% 100 ML IV SCH ×3 (01:54→18:01)
[2020-08-20] MEDS ORDERED: LACTULOSE SYRUP 10 GM/15 ML BTL 960 ML PO ONE (02:00)
[2020-08-20] MEDS: LACTULOSE 200 GM, WATER, STERILE IRRIG 700 ML, BARCODE IDENTIFIER 1 EA PR SCH ×3 (02:53→20:24)
[2020-08-20] MEDS: LEVALBUTEROL 1.25MG/0.5ML NEB NEB PRN (06:02)
[2020-08-20] MEDS: OCTREOTIDE ACETATE 100 MCG/ML VIAL SQ SCH ×2 (06:16→13:29)
[2020-08-20 06:17] LABS: Mean Corpuscular Hgb Conc 34.9 g/dL (32-36); Nucleated RBC # (auto) 0.28 K/uL (0-0); Nucleated RBC % (auto) 2.6 %
[2020-08-20 06:39] LABS: Hematocrit (blood only) 31.5 % (37-47); Mean Corpuscular Hemoglobin 32.1 pg (25-34); Mean Corpuscular Volume 91.8 fL (80-100); RDW Coefficient of Variation 19.9 % (11.5-14.5); RDW Standard Deviation 63.3 fL (36.4-46.3); Red Blood Count 3.43 M/uL (4.2-5.4); White Blood Count 10.74 K/uL (4.8-10.8)
[2020-08-20 06:54] LABS: Prothrombin Time 22.8 Seconds (9.0-12.0)
[2020-08-20 06:57] LABS: INR 2.2 (0.9-1.1)
[2020-08-20 07:00] LABS: Basophils # (auto) 0.05 K/uL (0-0.2); Basophils % (auto) 0.5 %; Echinocytes 2+; Eosinophils # (auto) 0.01 K/uL (0-0.5); Eosinophils % (auto) 0.1 %; Immature Granulocytes # (auto) 0.58 K/uL (0.00-0.02); Immature Granulocytes % (auto) 5.4 %; Lymphocytes # (auto) 0.66 K/uL (1.2-3.4); Lymphocytes % (auto) 6.1 %; Monocytes # (auto) 1.08 K/uL (0.11-0.59); Monocytes % (auto) 10.1 %; Neutrophils # (auto) 8.36 K/uL (1.4-6.5); Neutrophils % (auto) 77.8 %; Pappenheimer Bodies 1+; Platelet Count 64 K/uL (130-400); Platelet Estimate Decreased (Normal); Polychromasia 1+; Target Cells 1+
[2020-08-20 07:24] LABS: Alanine Aminotransferase 59 U/L (12-78); Albumin Level 3.2 gm/dl (3.4-5.0); Alkaline Phosphatase 150 U/L (45-117); Aspartate Aminotransferase 148 U/L (15-37); Bilirubin,Total 31.9 mg/dl (0.2-1); Blood Urea Nitrogen 24 mg/dl (7-18); Calcium 8.7 mg/dl (8.5-10.1); Carbon Dioxide 23 mmol/L (21-32); Chloride 112 mmol/L (98-107); Glucose 117 mg/dl (70-99); Potassium 3.3 mmol/L (3.5-5.1); Sodium 145 mmol/L (136-145)
[2020-08-20] MEDS: THIAMINE HCL 100 MG in SYRINGE 9 ML IV SCH (10:06)
[2020-08-20] MEDS: FOLIC ACID 1 MG in SYRINGE 9.8 ML IV SCH (10:06)
[2020-08-20] MEDS: PROPRANOLOL HCL 10 MG TAB PO SCH ×2 (10:09→20:25)
[2020-08-20] MEDS: MIDODRINE HCL 10 MG TAB PO SCH ×2 (10:09→13:17)
[2020-08-20] MEDS: MAGNESIUM OXIDE 400 MG TAB PO SCH (10:09)
[2020-08-20] MEDS: rifAXIMin 550 MG TABLET PO SCH ×2 (10:10→20:25)
[2020-08-20] MEDS: PANTOprazole 40 MG TAB PO SCH (10:10)
[2020-08-20] MEDS: CEROVITE ADV FORMULA TAB PO SCH ×2 (10:10→10:16)
--- NOTE | 2020-08-20 10:30 | Gastroenterology Progress Note ---
Date of Service August 20, 2020 Assessment & Plan (1) Alcoholic hepatitis: (2) Acute hepatic encephalopathy: (3) Alcoholic cirrhosis: (4) Hemochromatosis associated with compound heterozygous mutation in HFE gene: Pt is a 59 y/o female w hx of Hemochromatosis, ETOH cirrhosis, admitted w hepatic encephalopathy & likely ETOH hepatitis. Also has UTI (Ecoli) Unable to calculate MELD (Cr unavailable due to icteric sample), Maddreys >32. - Obtain head ct, repeat CXR, blood cx - Replete electrolytes - Continue antibx coverage to cover UTI and possible SBP - Prednisolone held in light of UTI - US paracentesis w fluid analysis, cell ct, cx cancelled given elevated INR and worsening mental status. No signs of tense ascites and she is already on Zosyn IV thus will cover SBP. - Continue Lactulose and Xifaxan ; goal BM 3-5x a day. If unable to take PO meds, will change Lactulose to MO enema - Strict ETOH cessation - I have called and discussed pt's case with [facility] chief information security officer Bond Clerk (Dr. Alberto Cleary). Pt not likely a liver transplant candidate given her previous known hx of ETOH cirrhosis, and relapse prior to admission. Recommend continued supportive care, antibx coverage, Albumin IV. - Will arrange GI f/u upon her DC for continued cirrhosis management ; hasn't toni sage seen in GI clinic since 2019 Admission and Anticipated Discharge Date Admission Date: August 15, 2020 Supervising Physician Co-Signing Physician Notes Attending attestation I have seen, examined this patient, and agree with the findings and above by our mid-level provider STEFFANIE Washington, with the following additions: - Mental status slightly better, still has HE, smiled at me during interview - Worsening MELD at 38, renal function is unknown, has HRS andon on appropriate therapy with octreotide and albumin - Could consider OLT transfer, not sure if would consider based upon substance abuse - Lactulose MO - Monitor and replete K as well as electrolytes - Guarded prognosis, stop steroids given UTI, continue Zosyn - Renal following for ARF - CT of head Subjective Pt is confused today, unable to obtain history. Has soft mittens restraint and Dignishield for BMs. Review of Systems Review of Systems: Unobtainable due to cognitive status Physical Exam Constitutional: + ill appearing and + frail appearing Eyes: + scleral abnormality (icteric sclera) and PERRL ENMT: external ear and nose normal, oropharynx normal Respiratory: no respiratory distress and does not use accessory muscles Auscultation: + diminished lung sounds Cardiovascular: RRR, no murmur, no edema Gastrointestinal (Abdomen): Inspection/Auscultation: + abdomen distended (mildly distended) and + hypoactive bowel sounds Percussion/Palpation: abdomen nontender Skin: no rashes, warm and dry + jaundice Neurologic: Motor/Sensory: + asterixis (mild asterixis) Psychiatric: A+Ox3, euthymic affect Lymphatic: + lymphedema Results & Data ([facility]) Vital Signs (Past 12 Hours) Vital Signs Temp Pulse Pulse Resp BP Pulse Ox 08/20/20 08:34 37.0 C 76 18 139/76 93 08/20/20 06:06 70 20 97 08/20/20 04:45 36.4 C L 70 18 141/90 H 96 08/20/20 00:05 36.3 C L 67 20 130/89 96 08/19/20 23:26 69 20 93 08/19/20 23:00 66 (1) Alcoholic cirrhosis Ascites presence: with ascites Qualified Code(s): K70.31 - Alcoholic cirrhosis of liver with ascites
[2020-08-20] MEDS: ALBUMIN 25% 12.5 GM/50 ML VIAL IV SCH ×5 (12:15→22:55)
--- NOTE | 2020-08-20 13:17 | Hospitalist Progress Note ---
Date of Service August 20, 2020 Assessment & Plan (1) Acute liver failure: Acute alcohol hepatitis in setting of alcoholic cirrhosis with evidence of progressed acute liver failure. She has worsened since yesterday from a clinical and lab standpoint and steps have been taken above to reach out to family and explore higher levels of care. For now, will strongly consider restarting steroids with the high concern of mortality without them, currently on hold out of concern for UTI. Repeat UA is being done after a few days of Zosyn. If UA is clear will opt to give methylprednisolone 32mg IV daily--pt currently unable to take PO. She is also volume overloaded and is receiving albumin currently per GI. Giving Lasix 40mg IV now and will continue with Lasix 20mg IV q6hr with albumin 12.5gm IV q6hr. Additionally, midodrine and octreotide is being stopped and additional potassium replacement is being provided. Currently patient is unable to tolerate PO and was unable to take the midodrine as a result. Also her last SBP was in the 140s; will cont to watch this closely. Rifaximin and propranolol ordered, but again she is unable to tolerate PO at this time. Prognosis is very poor. Continue medical management with transplant consideration declined. (2) Acute hepatic encephalopathy: Cont lactulose OR q8hr per GI with [place] in place. Trend ammonia (3) Alcoholic hepatitis: Maddrey's score 77. Considering restarting steroids today as long as repeat UA is negative. (4) Abdominal ascites: 2/2 decompensated cirrhosis. Unable to perform paracentesis at this time with increased risk of bleeding 2/2 acute liver failure. Starting diuresis efforts with Lasix and albumin as outlined above. (5) Hypokalemia: Likely related to GI bowel losses. Expect this to continue to get worse with upcoming Lasix administration. Nephrology ordered replacement this afternoon based on this morning's level. Will need to repeat BMP later today. It is noted that we don't have an accurate creatinine because of jaundice compromising the test. (6) Thrombocytopenia: 2/2 cirrhosis. Cont to monitor (7) UTI (urinary tract infection): repeat UA now after Zosyn therapy. If clear, restart steroids. (8) Alcohol abuse: daily folate and thiamine IV. No evidence of alcohol withdrawal at this time and she is on Day 4 of this hospitalization. (9) Hemochromatosis: per outpatient management. (10) DVT prophylaxis: Currently unable to receive chemoprophylaxis 2/2 increased bleeding risk and thrombocytopenia but she is autoanticoagulated. Full Code Dispo-transfer to [facility] declined. Palliative consulted to assist with goals of care and continue conversation with the patient's children. Prognosis very poor. Cont PCU. DO Bala Bah Hospitalist Admission and Anticipated Discharge Date Admission Date: August 15, 2020 Subjective 59 yo F with acute alcoholic encephalopathy, alcoholic hepatitis and acute liver failure patient declined overnight requiring 2L oxygen-now doing well on room air wheezing heard on exam she is altered and is able to say her name and follow instructions to squeeze my hand but is otherwise nonverbal and unable to have a conversation or communicate in a meaningful way she is hypersomnolent I discussed the case with STEFFANIE Quan I contacted [facility] and spoke with the target network analyst Dr. Farooq and the Hospitalist team including the Automotive Shop Foreman, Jennifer Cade and Garth Richardson regarding a transfer to [place]-this was declined. I contacted the daughter, Mai, by phone to inform her that her mother was in grave condition and had a very poor prognosis 2/2 acute liver failure. I discussed what steps I had taken and everyone's recommendations including the fact that a liver transplant was the only treatment that would be life-saving and the transplant team at [facility] had declined this because of her well documented recent substance abuse with alcohol. She understands that mom has declined in the last 48 hours and we are continuing to provide medical therapy. Mai verbalized understanding with intent to discuss the situation further with her brother and possibly her mother's other two children, whom Mai report are estranged from mom, and will contact me back with their thoughts. I gave Mai my direct personal cell to contact me. I did consult Palliative Care for assistance with goals of care including continuation of the conversation surrounding code status once we come to an understanding of her treatment plan. Review of Systems Review of Systems: Unobtainable due to cognitive status Physical Exam Physical Exam: CONSTITUTIONAL: obese, vitals as above, generally ill-appearing and confused EYES: +icteric sclerae, normal conjunctivae ENT: external ear and nose normal NECK: trachea midline RESPIRATORY: wheezing heard at bilateral lung bases. Normal respiratory effort. No rhonchi or crackles heard. CARDIOVASCULAR: regular rate and rhythm, S1 and 2 heard without murmurs, gallops or rubs, 2+ peripheral edema bilaterally GASTROINTESTINAL: soft, TTP in RUQ, protuberant abdomen with positive fluid wave MUSCULOSKELETAL: head is normocephalic and atraumatic, cannot be assessed as patient is hypersomnolent SKIN: warm and dry, +jaundiced NEUROLOGIC: hypersomnolent, altered, able to squeeze my fingers with left hand, right hand is in a mitt. Able to tell me her name is Emely but when asked any other questions she is unable to communicate an answer. At one point she will say an uh-huh, but it's not clear if this is a vocalization of a meaningful understanding of what is being said. Results & Data Results & Data ([facility]) Vital Signs (Past 12 Hours) Vital Signs Temp Pulse Pulse Resp BP Pulse Ox 08/20/20 11:30 36.9 C 88 18 146/79 H 96 08/20/20 08:34 37.0 C 76 18 139/76 93 08/20/20 08:00 65 08/20/20 06:06 70 20 97 08/20/20 04:45 36.4 C L 70 18 141/90 H 96 Laboratory Results Short CBC 08/20/20 Range/Units 06:00 WBC 10.74 (4.8-10.8) K/uL Hgb 11.0 L (12.0-16.0) g/dL Hct 31.5 L (37-47) % Plt Count 64 L (130-400) K/uL BMP 08/19/20 08/20/20 15:39 06:00 Sodium 144 145 Potassium 2.9 L 3.3 L Chloride 109 H 112 H Carbon Dioxide 25 23 BUN 20 H 24 H Creatinine Glucose 134 H 117 H Calcium 8.6 8.7 Liver Function 08/20/20 Range/Units 06:00 Total Bilirubin 31.9 H (0.2-1) mg/dl AST 148 H (15-37) U/L ALT 59 (12-78) U/L Alkaline Phosphatase 150 H (45-117) U/L Albumin 3.2 L (3.4-5.0) gm/dl Diagnostic Findings [facility], [id number] XRay Report Patient: EMELY WEISS ANNAdmit Date: 08/15/20MR#: [id number]: [address] AAcct ID:[id number]: [facility]: [facility] Zip: [place] [id number]: [id number]: 2SSex: FRoom/Bed: [id number] Phy: Andree Hendrickson, DODiagnosis: AMSPri Phy: Kamilla Suazo, DOService Date: 08/20/20Fam Phy:Interpreting Phy: Pedro Griffin MDAdmit Phy: Davey Craig MD Ordering Phy: Andree Hendrickson, cc: ~ XR chest 1V portable HISTORY: increased wheezing, concern for volume overload COMPARISON: Chest 08/15/2020. FINDINGS: There are low lung volumes. The heart is mildly enlarged. No pneumothorax. Suspect trace bilateral pleural effusions. There is progressive perihilar interstitial/vascular thickening consistent with mild pulmonary edema. Hazy perihilar airspace opacities also likely represent a component of the pulmonary edema. IMPRESSION: Interval development of mild cardiomegaly, trace bilateral pleural effusions, and mild interstitial pulmonary edema. ACT 112: Negative or not required by law. Electronically signed by: Pedro Griffin M.D. 08/20/2020 1:45 PM Dictated: 08/20/20 1344Transcribed: 08/20/20 1344 Medications Administered Current Inpatient Medications Lactulose 200 gm/ Sterile Water 700 ml/ BARCODE IDENTIFIER 1 ea 0 gm OR Q8H ALEXSANDER Stop: 09/18/20 10:59 Last Admin: 08/20/20 12:15 Dose: 200 gm Documented by: Folic Acid 1 mg/ Syringe 10 mls @ 5 mls/min IV QAM ALEXSANDER Stop: 09/15/20 00:56 Last Admin: 08/20/20 10:06 Dose: 5 mls/min Documented by: Lorazepam (Ativan) 2 mg in 4 mls @ 4 mls/min IV UD PRN; Protocol PRN Reason: EtOH Withdrawl AWSS Score 8,9 Stop: 09/15/20 00:56 Thiamine HCl 100 mg/ Syringe 10 mls @ 2 mls/min IV QAM ALEXSANDER Stop: 09/15/20 00:56 Last Admin: 08/20/20 10:06 Dose: 2 mls/min Documented by: Lorazepam (Ativan) 1 mg in 2 mls @ 2 mls/min IV UD PRN; Protocol PRN Reason: EtOH Withdrawl AWSS Score 6,7 Stop: 09/15/20 00:56 Lorazepam (Ativan) 3 mg in 6 mls @ 4 mls/min IV ONCE PRN; Protocol PRN Reason: EtOH Withdrawl AWSS Score >=10 Stop: 09/15/20 00:56 Piperacillin Sod/Tazobactam (Sod 4.5 gm/ Dextrose) 120 mls @ 30 mls/hr IV Q8H [facility]; Protocol Stop: 08/26/20 09:59 Last Admin: 08/20/20 10:35 Dose: 30 mls/hr Documented by: Albumin Human (Albumin 25%) 12.5 gm in 50 mls @ 50 mls/hr IV Q1H [facility] Stop: 08/20/20 14:44 Last Admin: 08/20/20 13:24 Dose: 50 mls/hr Documented by: Potassium Chloride (K João / Wtr) 10 meq in 100 mls @ 100 mls/hr IV Q1H [facility] Stop: 08/20/20 17:59 Levalbuterol HCl (Levalbuterol 1.25mg/0.5ml Neb) 1.25 mg NEB Q4R PRN PRN Reason: Shortness Of Breath Or Wheezing Stop: 09/18/20 22:22 Last Admin: 08/20/20 06:02 Dose: 1.25 mg Documented by: Magnesium Oxide (Magnesium Oxide 400 Mg Tab) 400 mg PO QAM ALEXSANDER Stop: 09/15/20 08:59 Last Admin: 08/20/20 10:09 Dose: 400 mg Documented by: Miscellaneous (Apriso~Order Awaiting Action) 1 ea N/A QS [facility] Stop: 09/15/20 07:59 Last Admin: 08/20/20 10:10 Dose: Not Given Documented by: Miscellaneous Information (Piperacill/Tazobac Consult Active) 1 ea N/A UD PRN PRN Reason: Consult Stop: 09/15/20 00:56 Multivitamins/Minerals (Cerovite Adv Formula Tab) [facility] Stop: 09/15/20 08:59 Last Admin: 08/20/20 10:16 Dose: Not Given Documented by: Nitroglycerin (Nitroglycerin Sl 0.4 Mg/Tab Tab) 0.4 mg SL UD PRN PRN Reason: Chest Pain Stop: 09/15/20 00:56 Pantoprazole Sodium (Pantoprazole 40 Mg Tab) 40 [facility] Stop: 09/15/20 08:59 Last Admin: 08/20/20 10:10 Dose: 40 mg Documented by: Propranolol HCl (Propranolol Hcl 10 Mg Tab) 10 mg PO BID [facility] Stop: 09/15/20 00:56 Last Admin: 08/20/20 10:09 Dose: 10 mg Documented by: Rifaximin (Rifaximin 550 Mg Tablet) 550 mg PO BID [facility] Stop: 09/15/20 00:56 Last Admin: 08/20/20 10:10 Dose: 550 mg Documented by: (1) Abdominal ascites Ascites type: due to alcoholic cirrhosis Qualified Code(s): K70.31 - Alcoholic cirrhosis of liver with ascites
--- NOTE | 2020-08-20 13:19 | Nephrology Progress Note ---
Date of Service August 20, 2020 Assessment & Plan (1) MANDA (acute kidney injury): Patient with acute kidney injury attributed to hepatorenal syndrome though also w/ UTI on admissoin. She has decompensated cirrhosis and admitted with hepatic encephalopathy; also w/ E coli UTI on zosyn. Creatinine of 1.9 at admission, unclear baseline; on POC/suboptimal specimen w/o ability to f/u levels reliably d/t icteric specimeens -- creat was 2.3 yesterday pm. -on 08/17 started therapy for hepatorenal syndrome with midodrine 10 mg 3 times daily, octreotide 100 mcg daily subcu and 75 g of albumin daily again for today at least >> at this point would scale back to just albumin/lasix since we cannot assess / appreciate response to HRS tx and she is volume -Monitor input output -Avoid nephrotoxins -cont zosyn for UTI; defer to GI and primary service If zosyn enough to cover empirically for SBP given no paracentesis, worsening lactate, etc - note blood cxs pending -cont 1.5L FR and <2 gm daily Na diet >>start lasix 40 mg IV w/ albumin x 1 now, then 20 mg lasix IV q6h with 12.5 gm albumin 25%, low threshold to modify lasix dose based on breathing status -not a dialysis candidate if she is not a liver transplant candidate -agree w/ CXR today (2) Acute hepatic encephalopathy: Patient is on lactulose per primary team. Mental status worsening. per primary service and gi -- not a candidate for tertiary care center transfer b/c not a txplt candidate -agree w/ plan to consider resuming steroids; do not believe that UTI precludes this (3) Hypokalemia: not on standing potassium and endorses frequent bmp on lactulose > last K 3.0 this am >will give another 40 mEq K -bmp for 1900 ordered Care coordinated w/ Dr Hendrickson Admission and Anticipated Discharge Date Admission Date: August 15, 2020 Subjective obtunded today and cannot give ros Review of Systems Review of Systems: Unobtainable due to reduced consciousness Physical Exam Constitutional: well developed and + obese; no acute distress on RA Eyes: EOM intact bilaterally; sclerae not anicteric ENMT: Ears: no external ear abnormality Nose: no external nose abnormality Mouth: + dry oral mucous membranes Neck: no nuchal rigidity Respiratory: normal respiratory effort Auscultation: + diminished lung sounds and + rhonchi Cardiovascular: Rate/Rhythm: regular rate and regular rhythm Extremities: + edema (2-3+ BLE to hips) Gastrointestinal (Abdomen): Inspection/Auscultation: + abdomen distended and normal bowel sounds Percussion/Palpation: abdomen soft and + ascites; abdomen nontender Musculoskeletal: no cyanosis or clubbing, extremities motor strength 5/5 Extremities: strength 5/5 throughout Skin: no rashes, warm and dry + jaundice Neurologic: + obtunded Genitourinary: no hernandez Results & Data ([facility]) Vital Signs (Past 12 Hours) Vital Signs Temp Pulse Pulse Resp BP Pulse Ox 08/20/20 11:30 36.9 C 88 18 146/79 H 96 08/20/20 08:34 37.0 C 76 18 139/76 93 08/20/20 08:00 65 08/20/20 06:06 70 20 97 08/20/20 04:45 36.4 C L 70 18 141/90 H 96 Laboratory Results 08/20/20 06:00 08/20/20 06:00
--- NOTE | 2020-08-20 13:46 | XRay Report ---
XR chest 1V portable HISTORY: increased wheezing, concern for volume overload COMPARISON: Chest 08/15/2020. FINDINGS: There are low lung volumes. The heart is mildly enlarged. No pneumothorax. Suspect trace bi lateral pleural effusions. There is progressive perihilar interstitial/vascular thickening consistent with mild pulmonary edema. Hazy perihilar airspace opacities also likely represent a component of th e pulmonary edema. IMPRESSION: Interval development of mild cardiomegaly, trace bilateral pleural effusions, and mild interstitial p ulmonary edema. ACT 112: Negative or not required by law. Electronically signed by: Pedro Griffin M.D. 08/20/2020 1:45 PM
--- NOTE | 2020-08-20 13:50 | Palliative Care Consultation ---
Date of Consultation August 20, 2020 Assessment & Plan (1) Palliative care encounter: I spoke with patient's daughter, Mai on the phone. She spoke with Dr. Hendrickson earlier this afternoon and understands that her mother's prognosis is poor. She and her siblings are gathering together at this time. We discussed speaking together as a group to address their questions and discuss what Emely's goals for care would be moving forward. She is not likely a candidate for transplant and appears to be at the end stage of her liver disease. Mai tells me that there is no designated POA for healthcare decisions but that her oldest brother, Pavan, would likely be the lead decision maker among the siblings. I will touch base with them later this afternoon to set up a family meeting. I spoke with Mai who tells me that her brother, Pavan, will be the contact and person making decisions with input from his siblings. Pavan's numbers are at home and cell phone. I spoke with Pavan who understands that Emely's prognosis is poor. He does not feel that they are ready to shift focus to comfort care only at this point. We discussed code status and he understands that CPR would not be successful for her and at best would lead to intubation and ventilator which would make even more difficult decisions down the road. He would like her to be DNR with any possible treatments short of resuscitation to continue for now. Palliative care will follow. (2) Acute liver failure: (3) MANDA (acute kidney injury): (4) Alcoholic cirrhosis: Ascites presence: with ascites Qualified Code(s): K70.31 - Alcoholic cirrhosis of liver with ascites (5) Hemochromatosis: (6) UTI (urinary tract infection): History of Present Illness Reason for Consultation: goals of care Requesting Physician: Dr. Hendrickson Attending Physician: Andree Hendrickson, History of Present Illness 59 yo lady with h/o hemochromatosis and alcoholic cirrhosis. She was admitted with hepatic encephalopathy and jaundice. She has had significant encephalopathy to the point of not being able to take her po medications including lactulose and rifaximin. She is being treated for a UTI. She also has a head CT pending to further evaluate her encephalopathy. Her ammonia level today is 142 with a T bili of 31.9 and platelet count of 64,000. She also has hepatorenal syndrome. She apparently lives alone and has four adult children who are aware of her condition. Allergies Allergy/AdvReac Type Severity Reaction Status Date / Time benzalkonium Allergy Unknown Itchiness,swollen Verified 01/22/19 08:26 reddened eye cephalexin Allergy Unknown Hives Verified 01/22/19 08:26 clonidine Allergy Unknown Itchy rash Verified 01/22/19 08:26 Home Medications Medication Instructions Recorded Confirmed Type Xifaxan 550 mg PO BID 06/12/18 08/15/20 History furosemide 40 mg PO QAM 06/12/18 08/15/20 History lactulose 15 ml PO BID PRN 06/12/18 08/15/20 History magnesium oxide 400 mg PO QAM 06/12/18 08/15/20 History pantoprazole 40 mg PO QAM 06/12/18 08/15/20 History propranolol 10 mg PO BID 06/12/18 08/15/20 History spironolactone 25 mg PO QAM 06/12/18 08/15/20 History thiamine HCl (vitamin B1) 100 mg PO QAM 06/12/18 08/15/20 History mesalamine [Apriso] 1.5 g PO QAM 03/23/19 08/15/20 History multivitamin with folic acid 1 tab PO QAM 08/15/20 08/15/20 History [Tab-A-Kayli] Patient History Medical History (Updated 08/20/20 @ 14:25 by Kellie Blancas MD) Hemochromatosis History of colon polyps Hypertension Nonalcoholic steatohepatitis (SARAH) fatty liver Surgical History History of colonoscopy History of esophagogastroduodenoscopy (EGD) Family History Father Family history of diabetes mellitus Mother Family history of diabetes mellitus Brother Family history of diabetes mellitus 2 Social History Smoking Status: Never smoker Second Hand Exposure: No; Hx Alcohol Use: Yes Alcohol type: hard liquor Hx Substance Use: No Preferred Language: Ukrainian Communication Ability: Effective Transport Company Manager Required: No Beliefs That Will Affect Care: None Current Living Situation: Alone Current Living Situation Comment: lives with son Feels Safe at Home: Yes Safety Concerns: Feels Safe At This Time Assistive Devices: None Review of Systems Review of Systems: Unobtainable due to cognitive status [place] Symptom Assessment Scale Drowsiness 2/3 Pain 0/3 Anxiety 0/3 Physical Exam 2 Constitutional: + lethargic Skin: jaundice Neurologic: + confused Results & Data ([facility]) Vital Signs (Past 12 Hours) Vital Signs Temp Pulse Pulse Resp BP Pulse Ox 08/20/20 11:30 98.4 F 88 18 146/79 H 96 08/20/20 08:34 98.6 F 76 18 139/76 93 08/20/20 08:00 65 08/20/20 06:06 70 20 97 08/20/20 04:45 97.5 F L 70 18 141/90 H 96 PG Care Time/CCT Total # of Minutes Spent Total Time Spent with Patient: Total time spent is greater than 50% in coordination of care (as documented) at patient's floor/unit and/or counseling patient: total time spent 80 minutes with more than 50% of time spent on coordination and education with family, surrogate decision maker, code status and goals of care Coding Level of Care Code 08531 Inpt Consult Level 4 Diagnoses Palliative care encounter Z51.5 Acute liver failure K72.00 MANDA (acute kidney injury) N17.9 Alcoholic cirrhosis K70.31 Ascites presence: with ascites Hemochromatosis E83.119 UTI (urinary tract infection) N39.0
[2020-08-20] MEDS ORDERED: FUROSEMIDE 40 MG in SYRINGE 0 ML IV STA (13:55)
--- NOTE | 2020-08-20 13:58 | CT Scan Report ---
CT head/brain wo con CLINICAL HISTORY: Acute change in mental status PATIENT IS UNRESPONSIVE COMPARISON STUDY: August 15, 2020 TECHNIQUE: Axial CT of the brain is performed from the vertex to the skull base. IV contrast was not administered for this examination. A dose lowering technique was utilized adhering to the principles of ALARA. CT DOSE: 537.48 mGy.cm FINDINGS: No intra or extra-axial mass lesions are visualized. There is no CT evidence of acute cortical infarc tion. There is no evidence of midline shift. There is no acute hemorrhage. No calvarial fractures ar e visualized. There are minimal white matter hypodensities likely on a small vessel basis. There is no evidence of pathologic ventricular dilatation. There are small sphenoid sinus air-fluid levels. IMPRESSION: 1. Interval development of small sphenoid sinus air-fluid levels. 2. Otherwise no acute intracranial findings. ACT 112: Negative or not required by law. Electronically signed by: Eagle Skinner M.D. 08/20/2020 1:57 PM
[2020-08-20 16:57] LABS: Appearance Urine Clear (Clear); Blood Urine 1+ (Negative); Color Urine Dark Yellow; Glucose Urine UA Negative (Negative); Ketones Urine Trace (Negative); Leukocyte Esterase Urine Trace (Negative); Nitrite Urine Positive (Negative); Protein Urine 1+ (Negative); Specific Gravity Urine 1.022 (1.000-1.030); Urobilinogen Urine Negative (Negative)
[2020-08-20 16:58] LABS: Bilirubin Urine 3+ (Negative)
[2020-08-20 17:11] LABS: WBC Urine >30 /hpf (0-5)
[2020-08-20 17:12] LABS: Bacteria Urine Negative (Negative)
[2020-08-20] MEDS ORDERED: methylPREDNISolone 32 MG in SYRINGE 0 ML IV STA (19:31)
[2020-08-20 20:39] LABS: Calcium 8.6 mg/dl (8.5-10.1)
[2020-08-20] MEDS: FUROSEMIDE 20 MG in SYRINGE 0 ML IV SCH (22:59)
[2020-08-21] MEDS: POTASSIUM CHLORIDE / WTR 10 MEQ/100 ML PLCT IV SCH ×10 (00:04→23:00)
[2020-08-21] MEDS: APRISO~ORDER AWAITING ACTION SCH ×4 (01:04→23:24)
[2020-08-21] MEDS: PIPERACILLIN/TAZOBACTAM 4.5 GM in DEXTROSE 5% 100 ML IV SCH ×3 (03:12→18:10)
[2020-08-21] MEDS: ALBUMIN 25% 12.5 GM/50 ML VIAL IV SCH ×4 (05:42→22:15)
[2020-08-21] MEDS: FUROSEMIDE 20 MG in SYRINGE 0 ML IV SCH ×2 (05:42→09:34)
[2020-08-21] MEDS: UNIT DOSE COMPOUND PR SCH ×3 (05:42→22:03)
[2020-08-21] MEDS: LACTULOSE 200 GM, WATER, STERILE IRRIG 700 ML, BARCODE IDENTIFIER 1 EA PR SCH ×3 (05:42→22:03)
[2020-08-21 06:36] LABS: Mean Corpuscular Hgb Conc 34.9 g/dL (32-36); Nucleated RBC # (auto) 0.26 K/uL (0-0); Nucleated RBC % (auto) 2.3 %
[2020-08-21 06:54] LABS: Hematocrit (blood only) 30.4 % (37-47); Hemoglobin 10.6 g/dL (12.0-16.0); Mean Corpuscular Hemoglobin 32.3 pg (25-34); Mean Corpuscular Volume 92.7 fL (80-100); RDW Coefficient of Variation 20.8 % (11.5-14.5); RDW Standard Deviation 67.8 fL (36.4-46.3); Red Blood Count 3.28 M/uL (4.2-5.4); White Blood Count 11.44 K/uL (4.8-10.8)
[2020-08-21 07:01] LABS: Prothrombin Time 25.9 Seconds (9.0-12.0)
[2020-08-21 07:03] LABS: INR 2.8 (0.9-1.1)
[2020-08-21 07:05] LABS: Alanine Aminotransferase 67 U/L (12-78); Albumin Level 3.4 gm/dl (3.4-5.0); Aspartate Aminotransferase 200 U/L (15-37); Blood Urea Nitrogen 30 mg/dl (7-18); Calcium 8.9 mg/dl (8.5-10.1); Carbon Dioxide 24 mmol/L (21-32); Chloride 110 mmol/L (98-107); Glucose 106 mg/dl (70-99); Sodium 147 mmol/L (136-145)
[2020-08-21 07:11] LABS: Platelet Count 38 K/uL (130-400)
[2020-08-21 07:12] LABS: Anisocytosis Present; Basophils # (auto) 0.04 K/uL (0-0.2); Basophils % (auto) 0.3 %; Echinocytes 1+; Eosinophils # (auto) 0.02 K/uL (0-0.5); Eosinophils % (auto) 0.2 %; Immature Granulocytes # (auto) 0.29 K/uL (0.00-0.02); Immature Granulocytes % (auto) 2.5 %; Lymphocytes # (auto) 0.56 K/uL (1.2-3.4); Lymphocytes % (auto) 4.9 %; Monocytes # (auto) 0.57 K/uL (0.11-0.59); Neutrophils # (auto) 9.96 K/uL (1.4-6.5); Neutrophils % (auto) 87.1 %; Platelet Estimate SIGNIFIC DECREASED (Normal); Polychromasia 1+; Target Cells 2+
[2020-08-21 07:25] LABS: Alkaline Phosphatase 138 U/L (45-117); Bilirubin,Total 34.1 mg/dl (0.2-1)
[2020-08-21] MEDS: FOLIC ACID 1 MG in SYRINGE 9.8 ML IV SCH (08:10)
[2020-08-21] MEDS: THIAMINE HCL 100 MG in SYRINGE 9 ML IV SCH (08:10)
[2020-08-21] MEDS: rifAXIMin 550 MG TABLET PO SCH ×2 (10:01→20:50)
[2020-08-21] MEDS: PROPRANOLOL HCL 10 MG TAB PO SCH (10:01)
--- NOTE | 2020-08-21 10:48 | Nephrology Progress Note ---
Date of Service August 21, 2020 Assessment & Plan (1) MANDA (acute kidney injury): Patient with acute kidney injury attributed to hepatorenal syndrome though also w/ UTI on admissoin. She has decompensated cirrhosis and admitted with hepatic encephalopathy; also w/ E coli UTI on zosyn. Creatinine of 1.9 at admission, unclear baseline; on POC/suboptimal specimen w/o ability to f/u timely levels reliably d/t icteric specimeens -- creat was 2.0 on 08/19 pm. -on 08/17 started therapy for hepatorenal syndrome with midodrine 10 mg 3 times daily, octreotide 100 mcg daily subcu and 75 g of albumin daily again for today at least >> on 08/20 scaled back to just albumin/lasix -Monitor input output -Avoid nephrotoxins -cont zosyn for UTI; defer to GI and primary service If zosyn enough to cover e mpirically for SBP given no paracentesis, worsening lactate, etc - note blood cxs pending -cont 1.5L FR and <2 gm daily Na diet >>started lasix 40 mg IV w/ albumin x 1 then 20 mg lasix IV q6h with 12.5 gm albumin 25% on 08/20 late in day >> she is over 6L negative in less than 24 hrs and for now will hold lasix ; do albumin only -not a dialysis candidate if she is not a liver transplant candidate (2) Acute hepatic encephalopathy: Patient is on lactulose per primary team. Mental status worsening. per primary service and gi -- not a candidate for tertiary care center transfer b/c not a txplt candidate -agree w/ plan to consider resuming steroids; do not believe that UTI precludes this (3) Hypokalemia: not on standing potassium and endorses frequent bmp on lactulose > last K 3.0 this am >will give another 40 mEq K IV -bmp for 1800 ordered Care coordinated w/ Dr Hendrickson Admission and Anticipated Discharge Date Admission Date: August 15, 2020 Subjective note code status changed to DNR not interactive/following commands Review of Systems Review of Systems: All systems reviewed & are unremarkable except as noted in Subjective Physical Exam Constitutional: well developed and + obese; no acute distress Eyes: EOM intact bilaterally; sclerae not anicteric ENMT: Ears: no external ear abnormality Nose: no external nose abnormality Mouth: + dry oral mucous membranes Neck: no nuchal rigidity Respiratory: normal respiratory effort Auscultation: + diminished lung sounds and + rhonchi Cardiovascular: Rate/Rhythm: regular rate and regular rhythm Extremities: + edema (2-3+ BLE to hips) Gastrointestinal (Abdomen): Inspection/Auscultation: + abdomen distended and normal bowel sounds Percussion/Palpation: abdomen soft and + ascites; abdomen nontender Musculoskeletal: no cyanosis or clubbing, extremities motor strength 5/5 Extremities: strength 5/5 throughout Skin: no rashes, warm and dry + jaundice Neurologic: + obtunded Genitourinary: hernandez w/ ample marcus urine Results & Data ([facility]) Vital Signs (Past 12 Hours) Vital Signs Temp Pulse Pulse Resp BP BP Pulse Ox 08/21/20 08:00 72 08/21/20 04:39 36.7 C 69 18 161/91 H 95 08/21/20 00:20 36.3 C L 69 18 141/92 H 93 Laboratory Results 08/21/20 05:43 08/21/20 05:43 creat (send out) 08/19 = 2.0 Diagnostic Findings cxr > mild edema
--- NOTE | 2020-08-21 13:19 | Gastroenterology Progress Note ---
Date of Service August 21, 2020 Assessment & Plan (1) Alcoholic hepatitis: (2) Acute hepatic encephalopathy: (3) Alcoholic cirrhosis: (4) Hemochromatosis associated with compound heterozygous mutation in HFE gene: Pt is a 59 y/o female w hx of Hemochromatosis, ETOH cirrhosis, admitted w hepatic encephalopathy & likely ETOH hepatitis. Also has UTI (Ecoli) Unable to calculate MELD (Cr unavailable due to icteric sample), Maddreys >32. Since Tuesday mental status had declined and she's currently more obtunded. I have discussed pt's case with [facility] [employer] Practice Assistant (Dr. Alberto Cleary). Pt not likely a liver transplant candidate given her previous known hx of ETOH cirrhosis, and relapse prior to admission. - Obtain head ct, repeat CXR, blood cx -> no acute findings on head CT, CXR showed pulmonary edema, effusion, blood ct pending. - Replete electrolytes - Continue antibx coverage to cover UTI and possible SBP - Prednisolone held in light of UTI ; repeat UA growing yeast - US paracentesis w fluid analysis, cell ct, cx cancelled given elevated INR and worsening mental status. No signs of tense ascites and she is already on Zosyn IV thus will cover SBP. - Unable to take PO meds, will continue Lactulose ME enema via Dignishield tube. - Poor prognosis, family aware and Palliative care involved Attg add: I examined pt and reviewed chart and labs. Pt unable to provide history due to altered mental status. Pt with severe alc hep. She continues to be obtunded despite lactulose and xifaxan. Her VS remains stable, with mild hypertension on beta blockade, vigorous urine output. Labs show stable BUN, hgb; rising bili; increased but stable INR. Solumedrol appears to have been resumed yesterday by primary service. Plan as above -- cont lactulose, xifaxan; consider placement of NG tube for nutrition and meds. Will continue beta blockade given hypertension and adequate urine output. Regarding steroids - likely equivocal benefit given very high DF; plan to d/c if no improvement in bilirubin after a few days. Admission and Anticipated Discharge Date Admission Date: August 15, 2020 Subjective Pt obtunded, unable to provide history Per RN, pt made DNR/DNI by family yesterday, Palliative care involved Review of Systems Review of Systems: Unobtainable due to cognitive status Physical Exam Constitutional: + ill appearing Obtunded Eyes: + scleral abnormality (icteric sclera) and PERRL ENMT: external ear and nose normal, oropharynx normal Respiratory: no respiratory distress and does not use accessory muscles Auscultation: + diminished lung sounds Cardiovascular: RRR, no murmur, no edema Gastrointestinal (Abdomen): Inspection/Auscultation: + abdomen distended (mildly distended) and + hypoactive bowel sounds Percussion/Palpation: abdomen nontender Skin: no rashes, warm and dry + jaundice Neurologic: Motor/Sensory: + asterixis (mild asterixis) Psychiatric: Obtunded Lymphatic: + lymphedema Results & Data ([facility]) Vital Signs (Past 12 Hours) Vital Signs Temp Pulse Pulse Resp BP Pulse Ox 08/21/20 12:39 36.5 C 70 18 149/100 H 94 08/21/20 08:00 72 08/21/20 04:39 36.7 C 69 18 161/91 H 95 (1) Alcoholic cirrhosis Ascites presence: with ascites Qualified Code(s): K70.31 - Alcoholic cirrhosis of liver with ascites
--- NOTE | 2020-08-21 13:23 | Palliative Care Progress Note ---
Date of Service August 21, 2020 Assessment & Plan (1) Palliative care encounter: I spoke with son, Pavan, on the phone. He is struggling with feeling like he's "giving up" on his mother. We discussed all the interventions that are being done for her at this time and that he brought her to the hospital for help. We also discussed futility of CPR for her and he does not want her to suffer. I have arranged a visit for him to come and see his mother to better understand her condition. He does want to continue current level of care at this time. Palliative care will follow. Admission and Anticipated Discharge Date Admission Date: August 15, 2020 Subjective Deeply lethargic. Unable to follow simple commands like open your eyes or wiggle your toes. Appears comfortable Review of Systems Review of Systems: Unobtainable due to reduced consciousness [place] Symptom Assessment Scale Pain 0/3 by observation Dyspnea 0/3 Palliative Performance Score 20% Physical Exam Constitutional: + lethargic; no acute distress Eyes: scleral icterus ENMT: Mouth: + dry oral mucous membranes Respiratory: no labored breathing Cardiovascular: Extremities: + edema Gastrointestinal (Abdomen): Percussion/Palpation: + ascites Skin: + jaundice Neurologic: + obtunded Results & Data ([facility]) Vital Signs (Past 12 Hours) Vital Signs Temp Pulse Pulse Resp BP Pulse Ox 08/21/20 12:39 97.7 F 70 18 149/100 H 94 08/21/20 08:00 72 08/21/20 04:39 98.1 F 69 18 161/91 H 95 PG Care Time/CCT Total # of Minutes Spent Total Time Spent with Patient: Total time spent is greater than 50% in coordination of care (as documented) at patient's floor/unit and/or counseling patient: total time spent 35 min with more than 50% of time spent on family support and education, goals of care. Coding Level of Care Code 27810 Subseq Hosp Care Lvl 3 Diagnoses Palliative care encounter Z51.5
[2020-08-21] MEDS: methylPREDNISolone 32 MG in SYRINGE 0 ML IV SCH (15:07)
[2020-08-21 19:00] LABS: Blood Urea Nitrogen 32 mg/dl (7-18); Carbon Dioxide 25 mmol/L (21-32); Chloride 109 mmol/L (98-107); Glucose 121 mg/dl (70-99); Potassium 2.6 mmol/L (3.5-5.1); Sodium 148 mmol/L (136-145)
--- NOTE | 2020-08-21 20:10 | Hospitalist Progress Note ---
Date of Service August 21, 2020 Assessment & Plan (1) Acute liver failure: Acute liver failure secondary to Acute alcohol hepatitis in setting of alcoholic cirrhosis with evidence of worsening overnight. Steroids restarted after repeat UA reveals no bacterial infection. Ua did now reveal yeast, however. Have consulted Bala ESCOBAR to make recommendations for or against continuation of steroids despite this possible infection. Pulmonary and peripheral edema have appeared to have resolved and Lasix was stopped with continuation of albumin. HRS considered but not supported at this time as a cause so midodrine and octreotide were stopped. Patient is making good urine which is reassuring. Rifaximin and propranolol ordered, but again she is unable to tolerate PO at this time. Prognosis is very poor. Continue medical management with transplant consideration declined. Appreciate GI input. Will plan to stop steroids if no improvement in bilirubin in next 3 days. (2) Acute hepatic encephalopathy: Cont lactulose WI q8hr per GI with Dignishield in place. Trend ammonia (3) Alcoholic hepatitis: cont methylprednisolone. (4) Abdominal ascites: 2/2 decompensated cirrhosis. Unable to perform paracentesis at this time with increased risk of bleeding 2/2 acute liver failure. Starting diuresis efforts with Lasix and albumin as outlined above. (5) Hypokalemia: Likely related to GI bowel losses with continued lactulose administration and recent Lasix administration plus now poor PO intake. Continuous replacement ordered for overnight after evening K dropped from 3.0 to 2.6. (6) Thrombocytopenia: 2/2 cirrhosis but now worse so also concerning for an active process such as DIC. Will check labs. Cont to monitor (7) UTI (urinary tract infection): repeat UA now after Zosyn therapy. (8) Alcohol abuse: daily folate and thiamine IV. No evidence of alcohol withdrawal at this time and she is on Day 5 of this hospitalization. (9) Hemochromatosis: per outpatient management. (10) DVT prophylaxis: Currently unable to receive chemoprophylaxis 2/2 increased bleeding risk and thrombocytopenia but she is autoanticoagulated. Full Code Dispo-transfer to [facility] declined. Palliative consulted to assist with goals of care and continue conversation with the patient's children. Prognosis very poor. Cont PCU. DO Bala Bahist Admission and Anticipated Discharge Date Admission Date: August 15, 2020 Subjective 59 yo F with acute liver failure secondary to acute alcoholic hepatitis patient remains obtunded but did yell out when shifted around in bed saying ouch she was not working to breathe. platelets decreased significantly labs worsening generally remains hemodynamically stable with no events on telemetry overnight steroids started last night discussed case with GI NGT attempt was made by GI but this was unsuccessful and aborted. rectal tube and Vazquez remain in place. Review of Systems Review of Systems: Unobtainable due to cognitive status Physical Exam Physical Exam: CONSTITUTIONAL: obese, vitals as above, generally ill-appearing and obtunded EYES: +icteric sclerae, normal conjunctivae ENT: external ear and nose normal NECK: trachea midline RESPIRATORY: wheezing heard yesterday has resolved and lungs are clear to auscultation throughout. Normal respiratory effort. No rhonchi or crackles heard. CARDIOVASCULAR: regular rate and rhythm, S1 and 2 heard without murmurs, gallops or rubs, 2+ peripheral edema bilaterally GASTROINTESTINAL: soft, TTP in RUQ, protuberant abdomen with positive fluid wave MUSCULOSKELETAL: head is normocephalic and atraumatic, cannot be assessed as patient is hypersomnolent SKIN: warm and dry, +jaundiced NEUROLOGIC: hypersomnolent, altered, cannot follow instructions at all. Nonverbal for the most part Results & Data Results & Data ([facility]) Vital Signs (Past 12 Hours) Vital Signs Temp Pulse Pulse Resp BP Pulse Ox 08/21/20 19:43 36.7 C 76 18 161/90 H 93 08/21/20 16:05 36.4 C L 69 20 118/67 92 08/21/20 16:00 71 08/21/20 12:39 36.5 C 70 18 149/100 H 94 Laboratory Results Short CBC 08/21/20 Range/Units 05:43 WBC 11.44 H (4.8-10.8) K/uL Hgb 10.6 L (12.0-16.0) g/dL Hct 30.4 L (37-47) % Plt Count 38 L (130-400) K/uL BMP 08/20/20 08/21/20 08/21/20 19:59 05:43 18:06 Sodium 147 H 147 H 148 H Potassium 3.0 L 3.0 L 2.6 L Chloride 113 H 110 H 109 H Carbon Dioxide 24 24 25 BUN 27 H 30 H 32 H Creatinine Glucose 94 106 H 121 H Calcium 8.6 8.9 9.0 Liver Function 08/21/20 Range/Units 05:43 Total Bilirubin 34.1 H (0.2-1) mg/dl AST 200 H (15-37) U/L ALT 67 (12-78) U/L Alkaline Phosphatase 138 H (45-117) U/L Albumin 3.4 (3.4-5.0) gm/dl Medications Administered Current Inpatient Medications Lactulose 200 gm/ Sterile Water 700 ml/ BARCODE IDENTIFIER 1 ea 0 gm WI Q8H [facility] Stop: 09/18/20 10:59 Last Admin: 08/21/20 14:18 Dose: 200 gm Documented by: Folic Acid 1 mg/ Syringe 10 mls @ 5 mls/[facility] Stop: 09/15/20 00:56 Last Admin: 08/21/20 08:10 Dose: 5 mls/min Documented by: Thiamine HCl 100 mg/ Syringe 10 mls @ 2 mls/min IV [facility] Stop: 09/15/20 00:56 Last Admin: 08/21/20 08:10 Dose: 2 mls/min Documented by: Piperacillin Sod/Tazobactam (Sod 4.5 gm/ Dextrose) 120 mls @ 30 mls/hr IV Q8H [facility]; Protocol Stop: 08/26/20 09:59 Last Admin: 08/21/20 18:10 Dose: 30 mls/hr Documented by: Furosemide 20 mg/ Syringe 2 mls @ 4 mls/min IV Q6H [facility] Stop: 09/19/20 21:59 Last Admin: 08/21/20 09:34 Dose: 4 mls/min Documented by: Albumin Human (Albumin 25%) 12.5 gm in 50 mls @ 50 mls/hr IV Q6H [facility] Stop: 08/23/20 21:59 Last Infusion: 08/21/20 16:42 Dose: Infused Documented by: Methylprednisolone 32 mg/ (Syringe) 0.512 mls @ 1.5 mls/min IV DAILY@15 [facility] Stop: 09/20/20 14:59 Last Admin: 08/21/20 15:07 Dose: 1.5 mls/min Documented by: Levalbuterol HCl (Levalbuterol 1.25mg/0.5ml Neb) 1.25 mg NEB Q4R PRN PRN Reason: Shortness Of Breath Or Wheezing Stop: 09/18/20 22:22 Last Admin: 08/20/20 06:02 Dose: 1.25 mg Documented by: Magnesium Oxide (Magnesium Oxide 400 Mg Tab) 400 mg PO QAM [facility] Stop: 09/15/20 08:59 Last Admin: 08/20/20 10:09 Dose: 400 mg Documented by: Miscellaneous (Apriso~Order Awaiting Action) 1 ea N/A QS [facility] Stop: 09/15/20 07:59 Last Admin: 08/21/20 15:30 Dose: Not Given Documented by: Miscellaneous (Unit Dose Compound) 1 ea WI Q8H [facility] Stop: 09/20/20 05:59 Last Admin: 08/21/20 14:19 Dose: 1 ea Documented by: Miscellaneous Information (Piperacill/Tazobac Consult Active) 1 ea N/A UD PRN PRN Reason: Consult Stop: 09/15/20 00:56 Multivitamins/Minerals (Cerovite Adv Formula Tab) 1 tab PO [facility] Stop: 09/15/20 08:59 Last Admin: 08/20/20 10:16 Dose: Not Given Documented by: Nitroglycerin (Nitroglycerin Sl 0.4 Mg/Tab Tab) 0.4 mg SL UD PRN PRN Reason: Chest Pain Stop: 09/15/20 00:56 Pantoprazole Sodium (Pantoprazole 40 Mg Tab) 40 [facility] Stop: 09/15/20 08:59 Last Admin: 08/20/20 10:10 Dose: 40 mg Documented by: Propranolol HCl (Propranolol Hcl 10 Mg Tab) 10 mg PO BID [facility] Stop: 09/15/20 00:56 Last Admin: 08/21/20 10:01 Dose: Not Given Documented by: Rifaximin (Rifaximin 550 Mg Tablet) 550 mg PO BID [facility] Stop: 09/15/20 00:56 Last Admin: 08/21/20 10:01 Dose: Not Given Documented by: (1) Abdominal ascites Ascites type: due to alcoholic cirrhosis Qualified Code(s): K70.31 - Alcoholic cirrhosis of liver with ascites
[2020-08-21] MEDS: METOPROLOL TARTRATE 1 MG/ML VIAL IV SCH (20:53)
[2020-08-22] MEDS: POTASSIUM CHLORIDE / WTR 10 MEQ/100 ML PLCT IV SCH ×13 (00:14→21:39)
[2020-08-22] MEDS: PIPERACILLIN/TAZOBACTAM 4.5 GM in DEXTROSE 5% 100 ML IV SCH ×3 (01:03→18:42)
[2020-08-22] MEDS: METOPROLOL TARTRATE 1 MG/ML VIAL IV SCH ×4 (04:12→21:40)
[2020-08-22] MEDS: ALBUMIN 25% 12.5 GM/50 ML VIAL IV SCH ×4 (04:57→21:40)
[2020-08-22] MEDS: UNIT DOSE COMPOUND PR SCH ×3 (05:26→22:48)
[2020-08-22] MEDS: LACTULOSE 200 GM, WATER, STERILE IRRIG 700 ML, BARCODE IDENTIFIER 1 EA PR SCH ×3 (05:26→22:48)
[2020-08-22 06:43] LABS: Nucleated RBC # (auto) 0.33 K/uL (0-0); Nucleated RBC % (auto) 3.4 %
[2020-08-22 07:25] LABS: Hematocrit (blood only) 28.2 % (37-47); Hemoglobin 9.6 g/dL (12.0-16.0); Mean Corpuscular Hemoglobin 31.9 pg (25-34); Mean Corpuscular Volume 93.7 fL (80-100); RDW Standard Deviation 69.1 fL (36.4-46.3); Red Blood Count 3.01 M/uL (4.2-5.4); White Blood Count 9.78 K/uL (4.8-10.8)
[2020-08-22 07:37] LABS: Platelet Count 35 K/uL (130-400)
[2020-08-22 07:48] LABS: Alanine Aminotransferase 68 U/L (12-78); Albumin Level 3.7 gm/dl (3.4-5.0); Alkaline Phosphatase 116 U/L (45-117); Aspartate Aminotransferase 224 U/L (15-37); Blood Urea Nitrogen 36 mg/dl (7-18); Calcium 8.4 mg/dl (8.5-10.1); Carbon Dioxide 25 mmol/L (21-32); Chloride 111 mmol/L (98-107); Glucose 133 mg/dl (70-99); Phosphorus 2.2 mg/dl (2.5-4.9); Potassium 3.2 mmol/L (3.5-5.1); Sodium 148 mmol/L (136-145)
[2020-08-22] MEDS: rifAXIMin 550 MG TABLET PO SCH ×2 (07:51→20:34)
--- NOTE | 2020-08-22 08:19 | Nephrology Progress Note ---
Date of Service August 22, 2020 Assessment & Plan (1) MANDA (acute kidney injury): Patient with acute kidney injury attributed to hepatorenal syndrome though also w/ UTI on admission. She has decompensated cirrhosis and admitted with hepatic encephalopathy; also w/ E coli UTI on zosyn. Creatinine of 1.9 at admission, unclear baseline; on POC/suboptimal specimen w/o ability to f/u timely levels reliably d/t icteric specimens -- creat was 2.0 on 08/19 pm, 1.9 on 08/21. -on 08/17 started therapy for hepatorenal syndrome with midodrine 10 mg 3 times daily, octreotide 100 mcg daily subcu and 75 g of albumin daily again for today at least >> on 08/20 scaled back to just albumin/lasix -Monitor input output -Avoid nephrotoxins -cont zosyn for UTI; defer to GI and primary service If zosyn enough to cover empirically for SBP given no paracentesis, worsening lactate, etc - note blood cxs pending -cont 1.5L FR and <2 gm daily Na diet >>started lasix 40 mg IV w/ albumin x 1 then 20 mg lasix IV q6h with 12.5 gm albumin 25% on 08/20 late in day >> she is over 6L negative in less than 24 hrs as of 08/20 and for 08/21 still 2.5 L negative; for now cont to hold lasix ; do albumin only -not a dialysis candidate if she is not a liver transplant candidate -not a renal biopsy candidate d/t elevated bleeding risk (2) Acute hepatic encephalopathy: Patient is on lactulose per primary team. Mental status worsening. per primary service and gi -- not a candidate for tertiary care center transfer b/c not a txplt candidate -steroids per primary service and GI (3) Hypokalemia: not on standing potassium and endorses frequent bmp on lactulose > last K 3.0 this am ALSO w/ hypernatremia, mild -gave 500 mL D5W x 1 >will give another 40 mEq K IV -bmp for 1600 ordered >> K 3.2 and Na 149 >> giving 1 L D5W w/ 40 mEq of K and 20 mEq K riders Care coordinated w/ Dr Hendrickson. Admission and Anticipated Discharge Date Admission Date: August 15, 2020 Subjective remains obtunded; NG placement tried/failed; seen on rounds about 1010 Review of Systems Review of Systems: Unobtainable due to reduced consciousness Physical Exam Constitutional: well developed and + obese; no acute distress Eyes: EOM intact bilaterally; sclerae not anicteric ENMT: Ears: no external ear abnormality Nose: no external nose abnormality Mouth: + dry oral mucous membranes Neck: no nuchal rigidity Respiratory: normal respiratory effort Auscultation: + diminished lung sounds and + rhonchi Cardiovascular: Rate/Rhythm: regular rate and regular rhythm Extremities: + edema (2-3+ BLE to hips; less tight today) Gastrointestinal (Abdomen): Inspection/Auscultation: + abdomen distended and normal bowel sounds Percussion/Palpation: abdomen soft and + ascites; abdomen nontender rectal tubing present Musculoskeletal: no cyanosis or clubbing, extremities motor strength 5/5 Extremities: strength 5/5 throughout Skin: no rashes, warm and dry + jaundice Neurologic: + obtunded Genitourinary: hernandez w/ ample brown urine Results & Data ([facility]) Vital Signs (Past 12 Hours) Vital Signs Temp Pulse Pulse Resp BP BP BP 08/22/20 04:12 72 155/93 H 08/22/20 04:02 36.8 C 67 18 155/93 H 08/21/20 23:32 72 08/21/20 23:15 36.7 C 72 18 165/80 H 08/21/20 20:53 80 161/90 H Pulse Ox 08/22/20 04:12 08/22/20 04:02 93 08/21/20 23:32 08/21/20 23:15 92 08/21/20 20:53 Laboratory Results 08/22/20 05:55 08/22/20 05:55 creat send out 1.9 on 08/21
[2020-08-22] MEDS: THIAMINE HCL 100 MG in SYRINGE 9 ML IV SCH (08:48)
[2020-08-22] MEDS: FOLIC ACID 1 MG in SYRINGE 9.8 ML IV SCH (08:48)
--- NOTE | 2020-08-22 12:11 | Gastroenterology Progress Note ---
Date of Service August 22, 2020 Assessment & Plan (1) Alcoholic hepatitis: (2) Acute hepatic encephalopathy: (3) Alcoholic cirrhosis: (4) Hemochromatosis associated with compound heterozygous mutation in HFE gene: Pt is a 59 y/o female w hx of Hemochromatosis, ETOH cirrhosis, admitted w hepatic encephalopathy & likely ETOH hepatitis. Also has UTI (Ecoli) Unable to calculate MELD (Cr unavailable due to icteric sample), Maddreys >32. Since Tuesday mental status had declined and she's currently more obtunded. I have discussed pt's case with [facility] [place] management liaison [employer] Dis[employer] Clerk (Dr. Alberto Cleary). Pt not likely a liver transplant candidate given her previous known hx of ETOH cirrhosis, and relapse prior to admission. - Obtain head ct, repeat CXR, blood cx -> no acute findings on head CT, CXR showed pulmonary edema, effusion, blood ct pending. - Replete electrolytes - Continue antibx coverage to cover UTI and possible SBP - ? benefits of steroids at this stage of advanced alc hepatitis and rising Tbili. If no improvement of Tbili in next day, may DC steroids. - Continue Lactulose enema. We attempted NGT placement yesterday in hopes to provide PO Lactulose & Xifaxan meds and nutrition through the tube, however we were unsuccessful as pt became agitated, unable to cooperate w placement. - US paracentesis w fluid analysis, cell ct, cx cancelled given elevated INR and worsening mental status. No signs of tense ascites and she is already on Zosyn IV thus will cover SBP. - Poor prognosis. Palliative care working w family who is not ready for comfort care at this time. Admission and Anticipated Discharge Date Admission Date: August 15, 2020 Supervising Physician Co-Signing Physician Notes I saw and evaluated the patient. Unfortunately she has a history of alcoholic liver disease resulting in cirrhosis. She appears to be slowly decompensating, local transplant centers were contacted however due to her recurrent alcohol abuse they feel she is a poor candidate. Unfortunately there is limited to offer this patient aside from palliative care. Would recommend continued therapy as listed above. Please call with any questions or concerns over the weekend the patient's condition continues to be guarded and I suspect she will not likely survive long as result of her alcoholic liver disease. Subjective Pt is more obtunded today, restless w sternal rub. Review of Systems Review of Systems: Unobtainable due to reduced consciousness Physical Exam Constitutional: + ill appearing ENMT: external ear and nose normal, oropharynx normal Respiratory: no respiratory distress and does not use accessory muscles Auscultation: + diminished lung sounds Cardiovascular: RRR, no murmur, no edema Gastrointestinal (Abdomen): Inspection/Auscultation: + abdomen distended (mildly distended) and + hypoactive bowel sounds Percussion/Palpation: abdomen nontender Skin: no rashes, warm and dry + jaundice Neurologic: Motor/Sensory: + asterixis (mild asterixis) Psychiatric: Obtunded Lymphatic: + lymphedema Results & Data ([facility]) Vital Signs (Past 12 Hours) Vital Signs Temp Pulse Pulse Resp BP BP Pulse Ox 08/22/20 08:00 36.5 C 56 L 20 99/54 L 93 08/22/20 04:12 72 155/93 H 08/22/20 04:02 36.8 C 67 18 155/93 H 93 (1) Alcoholic cirrhosis Ascites presence: with ascites Qualified Code(s): K70.31 - Alcoholic cirrhosis of liver with ascites
[2020-08-22] MEDS ORDERED: DEXTROSE 5% 500 ML IV SCH (13:15)
[2020-08-22] MEDS: methylPREDNISolone 32 MG in SYRINGE 0 ML IV SCH (14:31)
--- NOTE | 2020-08-22 15:08 | Hospitalist Progress Note ---
Date of Service August 22, 2020 Assessment & Plan (1) Acute liver failure: Acute liver failure secondary to Acute alcohol hepatitis in setting of alcoholic cirrhosis with continued decline. Per family wishes continuing with steroid treatment, elevctrolyte replacement and volume management. Progrnosis is very poor and palliative physician is working with children on progression to comfort care at this point. (2) DIC (disseminated intravascular coagulation): Acute liver failure with progression to DIC. This is evidence that her body is shutting down, and she will likely start having bleeding issues soon. Will need to continue the conversation of comfort care measures with her family. (3) Acute hepatic encephalopathy: Cont lactulose MT q8hr per GI with D[place] in place. (4) Alcoholic hepatitis: cont methylprednisolone. (5) Abdominal ascites: 2/2 decompensated cirrhosis. Unable to perform paracentesis at this time with increased risk of bleeding 2/2 acute liver failure. (6) Hypokalemia: Likely related to GI bowel losses with continued lactulose administration and recent Lasix administration plus now poor PO intake. Continuous replacement ordered for overnight after evening K dropped from 3.0 to 2.6. (7) Thrombocytopenia: 2/2 cirrhosis but now worse so also concerning for an active process such as DIC. Will check labs. Cont to monitor (8) UTI (urinary tract infection): resolved after Zosyn therapy. (9) Alcohol abuse: daily folate and thiamine IV. No evidence of alcohol withdrawal at this time and she is on Day 5 of this hospitalization. (10) Hemochromatosis: per outpatient management. (11) DVT prophylaxis: Currently unable to receive chemoprophylaxis 2/2 increased bleeding risk and thrombocytopenia but she is autoanticoagulated. Full Code [facility] declined as there is no accepting physician and transplant option has been declined. Palliative consulted to assist with goals of care and continue conversation with the patient's children. Prognosis very poor. Cont PCU for now. Andree Hendrickson DO [facility] Hospitalist Admission and Anticipated Discharge Date Admission Date: August 15, 2020 Subjective 59 yo F with alcoholic cirrhosis and acute hepatic encephalopathy 2/2 acute liver failure 2/2 acute alcoholic hepatitis patient remains obtunded ROS cannot be obtained Palliative physician is working with children on goals of care Patient appears comfortable today except when moved Lab progression with evidence of DIC Review of Systems Review of Systems: All systems reviewed & are unremarkable except as noted in Subjective Physical Exam Physical Exam: CONSTITUTIONAL: obese, vitals as above, generally ill-appearing and obtunded EYES: +icteric sclerae, normal conjunctivae ENT: external ear and nose normal NECK: trachea midline RESPIRATORY: clear to auscultation throughout. Normal respiratory effort. No wheezing, rhonchi or crackles heard. CARDIOVASCULAR: regular rate and rhythm, S1 and 2 heard without murmurs, gallops or rubs, trace peripheral edema. GASTROINTESTINAL: soft, no guarding, nondistended, protuberant abdomen with positive fluid wave MUSCULOSKELETAL: head is normocephalic and atraumatic, cannot be assessed as patient is hypersomnolent SKIN: warm and dry, +jaundiced NEUROLOGIC: hypersomnolent, altered, cannot follow instructions at all. Results & Data Results & Data ([facility]) Vital Signs (Past 12 Hours) Vital Signs Temp Pulse Pulse Resp BP BP Pulse Ox 08/22/20 14:35 62 155/93 H 08/22/20 12:06 37.0 C 61 20 110/64 95 08/22/20 09:00 55 L 08/22/20 08:00 36.5 C 56 L 20 99/54 L 93 08/22/20 04:12 72 155/93 H 08/22/20 04:02 36.8 C 67 18 155/93 H 93 Laboratory Results Short CBC 08/22/20 Range/Units 05:55 WBC 9.78 (4.8-10.8) K/uL Hgb 9.6 L (12.0-16.0) g/dL Hct 28.2 L (37-47) % Plt Count 35 L (130-400) K/uL BMP 08/21/20 08/22/20 18:06 05:55 Sodium 148 H 148 H Potassium 2.6 L 3.2 L D Chloride 109 H 111 H Carbon Dioxide 25 25 BUN 32 H 36 H Creatinine Glucose 121 H 133 H Calcium 9.0 8.4 L Liver Function 08/22/20 Range/Units 05:55 Total Bilirubin 34.0 H (0.2-1) mg/dl AST 224 H (15-37) U/L ALT 68 (12-78) U/L Alkaline Phosphatase 116 (45-117) U/L Albumin 3.7 (3.4-5.0) gm/dl Medications Administered Current Inpatient Medications Lactulose 200 gm/ Sterile Water 700 ml/ BARCODE IDENTIFIER 1 ea 0 gm MT Q8H [facility] Stop: 09/18/20 10:59 Last Admin: 08/22/20 14:33 Dose: 200 gm Documented by: Folic Acid 1 mg/ Syringe 10 mls @ 5 mls/min IV QAM [facility] Stop: 09/15/20 00:56 Last Admin: 08/22/20 08:48 Dose: 5 mls/min Documented by: Thiamine HCl 100 mg/ Syringe 10 mls @ 2 mls/min IV QAM [facility] Stop: 09/15/20 00:56 Last Admin: 08/22/20 08:48 Dose: 2 mls/min Documented by: Piperacillin Sod/Tazobactam (Sod 4.5 gm/ Dextrose) 120 mls @ 30 mls/hr IV Q8H [facility]; Protocol Stop: 08/22/20 23:59 Last Admin: 08/22/20 10:05 Dose: 30 mls/hr Documented by: Furosemide 20 mg/ Syringe 2 mls @ 4 mls/min IV Q6H [facility] Stop: 09/19/20 21:59 Last Admin: 08/21/20 09:34 Dose: 4 mls/min Documented by: Albumin Human (Albumin 25%) 12.5 gm in 50 mls @ 50 mls/hr IV Q6H [facility] Stop: 08/23/20 21:59 Last Admin: 08/22/20 15:03 Dose: 50 mls/hr Documented by: Methylprednisolone 32 mg/ (Syringe) 0.512 mls @ 1.5 mls/min IV DAILY@15 [facility] Stop: 09/20/20 14:59 Last Admin: 08/22/20 14:31 Dose: 1.5 mls/min Documented by: Dextrose (D5w) 500 mls @ 80 mls/hr IV .Q6H15M [facility] Stop: 08/22/20 19:29 Last Admin: 08/22/20 14:29 Dose: 80 mls/hr Documented by: Levalbuterol HCl (Levalbuterol 1.25mg/0.5ml Neb) 1.25 mg NEB Q4R PRN PRN Reason: Shortness Of Breath Or Wheezing Stop: 09/18/20 22:22 Last Admin: 08/20/20 06:02 Dose: 1.25 mg Documented by: Magnesium Oxide (Magnesium Oxide 400 Mg Tab) 400 mg PO QAM [facility] Stop: 09/15/20 08:59 Last Admin: 08/20/20 10:09 Dose: 400 mg Documented by: Metoprolol Tartrate (Metoprolol Tartrate 1 Mg/Ml Vial) 2.5 mg IV Q6H [facility] Stop: 09/20/20 20:59 Last Admin: 08/22/20 14:35 Dose: 2.5 mg Documented by: Miscellaneous (Apriso~Order Awaiting Action) 1 ea N/A QS [facility] Stop: 09/15/20 07:59 Last Admin: 08/21/20 23:24 Dose: Not Given Documented by: Miscellaneous (Unit Dose Compound) 1 ea MT Q8H [facility] Stop: 09/20/20 05:59 Last Admin: 08/22/20 05:26 Dose: 1 ea Documented by: Miscellaneous Information (Piperacill/Tazobac Consult Active) 1 ea N/A UD PRN PRN Reason: Consult Stop: 08/22/20 23:59 Multivitamins/Minerals (Cerovite Adv Formula Tab) [facility] [place]: 09/15/20 08:59 Last Admin: 08/20/20 10:16 Dose: Not Given Documented by: Nitroglycerin (Nitroglycerin Sl 0.4 Mg/Tab Tab) 0.4 mg SL UD PRN PRN Reason: Chest Pain Stop: 09/15/20 00:56 Pantoprazole Sodium (Pantoprazole 40 Mg Tab) 40 mg PO [facility] Stop: 09/15/20 08:59 Last Admin: 08/20/20 10:10 Dose: 40 mg Documented by: Propranolol HCl (Propranolol Hcl 10 Mg Tab) 10 mg PO BID [facility] Stop: 09/15/20 00:56 Last Admin: 08/21/20 10:01 Dose: Not Given Documented by: Rifaximin (Rifaximin 550 Mg Tablet) 550 mg PO BID [facility] Stop: 09/15/20 00:56 Last Admin: 08/22/20 07:51 Dose: Not Given Documented by: (1) Abdominal ascites Ascites type: due to alcoholic cirrhosis Qualified Code(s): K70.31 - Alc oholic cirrhosis of liver with ascites
--- NOTE | 2020-08-22 15:48 | Palliative Care Progress Note ---
Date of Service August 22, 2020 Assessment & Plan (1) Palliative care encounter: I spoke with Pavan and with Mai today. Both are very emotional and having a difficult time with decision making. The other son, Hipolito, called today as well. There has been some tension between siblings which he attributes to his mother's alcoholism. All are struggling with the idea of "giving up" on their mother. Pavan and deferred decisions to Mai. She is tearful and says that she certainly wants her mother to be comfortable. We discussed that her mother is likely to even with treatment and that a decision for comfort does not cause her but rather allows her to have a more peaceful . I spoke with Mai again at 1645 to address questions she had about what would happen if they chose to pursue comfort measures only for their mother. We reviewed that medications for disease treatment would be stopped and we would focus on medicines to control her symptoms and ensure her comfort. We talked about she and her siblings having the chance to visit their mother while on c omfort measures and reviewed the policy for that. She remains undecided and will continue to discuss with family. (2) Acute liver failure: Admission and Anticipated Discharge Date Admission Date: August 15, 2020 Subjective No response to voice or touch. Abdomen distended, unable to have paracentesis due to coagulopathy. Her daughter was in to visit last night and is tearful when describing how hard it was to see her mother like that. Review of Systems Review of Systems: Unobtainable due to reduced consciousness Palliative Performance Score 10% Physical Exam Constitutional: + ill appearing Eyes: scleral icterus Respiratory: no respiratory distress and no labored breathing Cardiovascular: Rate/Rhythm: regular rhythm Extremities: + edema Gastrointestinal (Abdomen): Inspection/Auscultation: + abdomen distended Percussion/Palpation: + ascites Skin: + jaundice Neurologic: + obtunded Genitourinary: Vazquez with tea colored urine Results & Data ([facility]) Vital Signs (Past 12 Hours) Vital Signs Temp Pulse Pulse Resp BP BP BP 08/22/20 15:25 98.1 F 57 L 20 146/90 H 08/22/20 14:35 62 155/93 H 08/22/20 12:06 98.6 F 61 20 110/64 08/22/20 09:00 55 L 08/22/20 08:00 97.7 F 56 L 20 99/54 L 08/22/20 04:12 72 155/93 H 08/22/20 04:02 98.2 F 67 18 155/93 H Pulse Ox 08/22/20 15:25 98 08/22/20 14:35 08/22/20 12:06 95 08/22/20 09:00 08/22/20 08:00 93 08/22/20 04:12 08/22/20 04:02 93 PG Care Time/CCT Total # of Minutes Spent Total Time Spent with Patient: Total time spent is greater than 50% in coordination of care (as documented) at patient's floor/unit and/or counseling patient: total time spent 45 minutes with more than 50% of time spent on family support and education, goals of care. Coding Level of Care Code 56858 Subseq Hosp Care Lvl 3 Diagnoses Palliative care encounter Z51.5 Acute liver failure K72.00
[2020-08-22 17:34] LABS: Calcium 8.1 mg/dl (8.5-10.1); Potassium 3.2 mmol/L (3.5-5.1)
[2020-08-22] MEDS ORDERED: POTASSIUM CHLORIDE 40 MEQ in DEXTROSE 5% 1,000 ML IV SCH (19:15)
[2020-08-22] MEDS: APRISO~ORDER AWAITING ACTION SCH (19:21)
[2020-08-23] MEDS: APRISO~ORDER AWAITING ACTION SCH ×4 (01:37→23:54)
[2020-08-23] MEDS ORDERED: ALBUT/IPRATROP 3MG/0.5MG NEB 3 ML VIAL NEB STA (01:48)
[2020-08-23 01:56] LABS: Anisocytosis Present; Basophils # (auto) 0.04 K/uL (0-0.2); Basophils % (auto) 0.4 %; Echinocytes 1+; Eosinophils # (auto) 0.01 K/uL (0-0.5); Eosinophils % (auto) 0.1 %; Hematocrit (blood only) 28.9 % (37-47); Hemoglobin 9.9 g/dL (12.0-16.0); Immature Granulocytes # (auto) 0.66 K/uL (0.00-0.02); Lymphocytes # (auto) 0.48 K/uL (1.2-3.4); Lymphocytes % (auto) 4.4 %; Mean Corpuscular Hemoglobin 32.7 pg (25-34); Mean Corpuscular Hgb Conc 34.3 g/dL (32-36); Mean Corpuscular Volume 95.4 fL (80-100); Monocytes % (auto) 6.4 %; Neutrophils # (auto) 9.06 K/uL (1.4-6.5); Neutrophils % (auto) 82.7 %; Nucleated RBC # (auto) 0.33 K/uL (0-0); Pappenheimer Bodies 1+; Platelet Count 36 K/uL (130-400); Platelet Estimate SIGNIFIC DECREASED (Normal); Polychromasia 1+; RDW Coefficient of Variation 21.9 % (11.5-14.5); RDW Standard Deviation 71.4 fL (36.4-46.3); Red Blood Count 3.03 M/uL (4.2-5.4); Target Cells 1+; White Blood Count 10.95 K/uL (4.8-10.8)
[2020-08-23 02:06] LABS: Base Excess ABG 0.2 mEq/L (-9-1.8); HCO3 ABG 24 mmol/L (19-24); Oxygen Saturation ABG 89.8 % (90-95); PCO2 ABG 35 mmHg (35-46); PO2 ABG 62 mmHg (80-95); pH ABG 7.45 (7.35-7.45)
[2020-08-23 02:13] LABS: Albumin Level 4.1 gm/dl (3.4-5.0); Alkaline Phosphatase 112 U/L (45-117); Blood Urea Nitrogen 38 mg/dl (7-18); Calcium 8.1 mg/dl (8.5-10.1); Carbon Dioxide 25 mmol/L (21-32); Chloride 113 mmol/L (98-107); Glucose 156 mg/dl (70-99); Potassium 3.2 mmol/L (3.5-5.1); Sodium 149 mmol/L (136-145)
[2020-08-23 02:14] LABS: Allen Test POS (Pos)
[2020-08-23] MEDS ORDERED: methylPREDNISolone 32 MG in SYRINGE 0 ML IV SCH (02:20)
[2020-08-23 02:25] LABS: Prothrombin Time 17.6 Seconds (9.0-12.0)
[2020-08-23 02:29] LABS: INR 1.8 (0.9-1.1)
[2020-08-23] MEDS: METOPROLOL TARTRATE 1 MG/ML VIAL IV SCH ×4 (02:48→20:31)
[2020-08-23] MEDS: POTASSIUM CHLORIDE / WTR 10 MEQ/100 ML PLCT IV SCH ×8 (02:48→12:50)
[2020-08-23] MEDS ORDERED: FUROSEMIDE 20 MG in SYRINGE 0 ML IV ONE (05:30)
[2020-08-23] MEDS: UNIT DOSE COMPOUND PR SCH ×3 (05:30→21:14)
[2020-08-23] MEDS: LACTULOSE 200 GM, WATER, STERILE IRRIG 700 ML, BARCODE IDENTIFIER 1 EA PR SCH ×2 (05:30→18:12)
--- NOTE | 2020-08-23 07:20 | CT Scan Report ---
CT SCAN OF THE BRAIN WITHOUT IV CONTRAST CLINICAL HISTORY: Change in mental status. Coagulopathy. COMPARISON STUDY: CT of the brain dated 08/20/2020. TECHNIQUE: Unenhanced axial CT scan of the brain is performed from the vertex to the skull base. A d ose lowering technique was utilized adhering to the principles of ALARA. CT DOSE: 537.48 mGy.cm FINDINGS: Brain parenchyma: The brain parenchyma is normal in appearance. There is no hemorrhage, mass effect, or evidence of acute territorial ischemia by CT criteria. Kidd-white matter differentiation is preser alonso. No extra-axial fluid collection is seen. Ventricles, sulci, cisterns: Normal in configuration. Intracranial vasculature: The visualized intracranial vasculature at the skull base is normal in appe arance. Calvarium: Unremarkable. Sinuses and mastoids: The visualized paranasal sinuses are clear. The mastoid air cells are well pneu matized. Orbits: The bony orbits are grossly intact. IMPRESSION: There is no hemorrhage, mass effect, or evidence of acute territorial ischemia by CT nikki becerra. ACT 112: Negative or not required by law. Electronically signed by: Austin Mayer M.D. 08/23/2020 7:19 AM
--- NOTE | 2020-08-23 07:56 | XRay Report ---
XR chest 1V portable CLINICAL HISTORY: wheeze COMPARISON STUDY: August 20, 2020 FINDINGS: The heart is enlarged. There are increased perihilar markings likely secondary to congestiv e failure/fluid overload. There is persistent mediastinal widening. No large pleural effusions are vi sualized. IMPRESSION: 1. Persistent cardiomegaly and mediastinal widening 2. Suspected congestive failure/fluid overload. 3. Radiographic follow-up is recommended. ACT 112: Negative or not required by law. Electronically signed by: Eagle Skinner M.D. 08/23/2020 7:55 AM
[2020-08-23] MEDS: THIAMINE HCL 100 MG in SYRINGE 9 ML IV SCH (08:57)
[2020-08-23] MEDS: FOLIC ACID 1 MG in SYRINGE 9.8 ML IV SCH (08:57)
[2020-08-23] MEDS: ALBUMIN 25% 12.5 GM/50 ML VIAL IV SCH (09:00)
[2020-08-23] MEDS: rifAXIMin 550 MG TABLET PO SCH (09:04)
--- NOTE | 2020-08-23 11:33 | Hospitalist Progress Note ---
Date of Service August 23, 2020 Assessment & Plan (1) Acute liver failure: Acute liver failure secondary to Acute alcohol hepatitis in setting of alcoholic cirrhosis with continued decline. Grave prognosis at this point with development of DIC and decline clinically. Patient remains obtunded. Discussed case with son today and daughter Mai by phone. Will likely proceed with comfort care measures soon once they have a chance to speak with all siblings. For now will hold on more lactulose enemas, no further blood draws, potassium replacement at this time as all has a chance of causing further discomfort. Will cont PCU monitoring and steroids for now. Awaiting family response to de- escalate care. (2) DIC (disseminated intravascular coagulation): Acute liver failure with progression to DIC. This is evidence that her body is shutting down, and she will likely start having bleeding issues soon. She was seen to have some dried blood around the mouth today of unclear etiology. Plan as above. (3) Acute hepatic encephalopathy: obtunded consistently. (4) Alcoholic hepatitis: cont methylprednisolone. (5) Abdominal ascites: 2/2 decompensated cirrhosis. Unable to perform paracentesis at this time with increased risk of bleeding 2/2 acute liver failure. Switching to more of a palliative care mode soon to maximize comfort, but awaiting family's final decisions regarding that. (6) Hypokalemia: Likely related to GI bowel losses with continued lactulose administration and recent Lasix administration plus now poor PO intake. Hold on further replacement at this time. (7) Thrombocytopenia: 2/2 cirrhosis but now worse so also concerning for an active process such as DIC. (8) UTI (urinary tract infection): resolved after Zosyn therapy. (9) Alcohol abuse: daily folate and thiamine IV were stopped. No evidence of alcohol withdrawal (10) Hemochromatosis: per outpatient management. (11) DVT prophylaxis: Autoanticoagulated. Full Code Dispo-uncertain but likely transfer to comfort care measures in the next 24 hours. Awaiting family response on this. Andree Hendrickson DO [facility] Hospitalist Admission and Anticipated Discharge Date Admission Date: August 15, 2020 Subjective 59 yo F with alcoholic cirrhosis and acute hepatic encephalopathy 2/2 acute liver failure 2/2 acute alcoholic hepatitis patient remains obtunded ROS cannot be obtained discussed case with GI-->grave prognosis supportive of comfort care I was able to have an in person discussion with her son and POA Bessie and his girlfriend Margo regarding comfort care measures They are comfortable with this but wanted to see mom first and discuss the plan with all siblings prior to moving to that formally All questions were answered Review of Systems Review of Systems: Unobtainable due to cognitive status Physical Exam Physical Exam: CONSTITUTIONAL: obese, vitals as above, generally ill-appearing and obtunded EYES: +icteric sclerae, normal conjunctivae ENT: external ear and nose normal NECK: trachea midline RESPIRATORY: clear to auscultation throughout. Normal respiratory effort. No wheezing, rhonchi or crackles heard. CARDIOVASCULAR: regular rate and rhythm, S1 and 2 heard without murmurs, gallops or rubs, trace peripheral edema. GASTROINTESTINAL: soft, no guarding, nondistended, protuberant abdomen with positive fluid wave MUSCULOSKELETAL: head is normocephalic and atraumatic, cannot be assessed as patient is hypersomnolent SKIN: warm and dry, +jaundiced NEUROLOGIC: hypersomnolent, altered, cannot follow instructions at all. Results & Data Results & Data ([facility]) Vital Signs (Past 12 Hours) Vital Signs Temp Pulse Pulse Pulse Resp BP BP 08/23/20 09:00 50 L 08/23/20 07:50 36.5 C 56 L 19 115/71 08/23/20 03:53 36.4 C L 62 16 156/89 H 08/23/20 02:21 16 08/23/20 00:09 36.5 C 62 62 16 127/83 08/23/20 00:00 57 L Pulse Ox 08/23/20 09:00 08/23/20 07:50 99 08/23/20 03:53 98 08/23/20 02:21 08/23/20 00:09 94 08/23/20 00:00 Laboratory Results Short CBC 08/23/20 Range/Units 01:25 WBC 10.95 H (4.8-10.8) K/uL Hgb 9.9 L (12.0-16.0) g/dL Hct 28.9 L (37-47) % Plt Count 36 L (130-400) K/uL BMP 08/22/20 08/23/20 16:18 01:25 Sodium 149 H 149 H Potassium 3.2 L 3.2 L Chloride 113 H 113 H Carbon Dioxide 27 25 BUN 37 H 38 H Creatinine Glucose 148 H 156 H Calcium 8.1 L 8.1 L Liver Function 08/23/20 Range/Units 01:25 Total Bilirubin 38.0 H (0.2-1) mg/dl AST (15-37) U/L ALT (12-78) U/L Alkaline Phosphatase 112 (45-117) U/L Albumin 4.1 (3.4-5.0) gm/dl Medications Administered Current Inpatient Medications Lactulose 200 gm/ Sterile Water 700 ml/ BARCODE IDENTIFIER 1 ea 0 gm AR Q8H [facility] Stop: 09/18/20 10:59 Last Admin: 08/23/20 05:30 Dose: 200 gm Documented by: Folic Acid 1 mg/ Syringe 10 mls @ 5 mls/[facility] [place]: 09/15/20 00:56 Last Admin: 08/23/20 08:57 Dose: 5 mls/min Documented by: Thiamine HCl 100 mg/ Syringe 10 mls @ 2 mls/min IV [facility] Stop: 09/15/20 00:56 Last Admin: 08/23/20 08:57 Dose: 2 mls/min Documented by: Furosemide 20 mg/ Syringe 2 mls @ 4 mls/min IV Q6H [facility] Stop: 09/19/20 21:59 Last Admin: 08/21/20 09:34 Dose: 4 mls/min Documented by: Albumin Human (Albumin 25%) 12.5 gm in 50 mls @ 50 mls/hr IV BID [facility] Stop: 08/25/20 20:59 Last Infusion: 08/23/20 10:00 Dose: Infused Documented by: Methylprednisolone 32 mg/ (Syringe) 0.512 mls @ 1.5 mls/min IV DAILY@15 [facility] Stop: 09/22/20 02:19 Last Admin: 08/23/20 02:48 Dose: 1.5 mls/min Documented by: Levalbuterol HCl (Levalbuterol 1.25mg/0.5ml Neb) 1.25 mg NEB Q4R PRN PRN Reason: Shortness Of Breath Or Wheezing Stop: 09/18/20 22:22 Last Admin: 08/20/20 06:02 Dose: 1.25 mg Documented by: Magnesium Oxide (Magnesium Oxide 400 Mg Tab) 400 mg PO QAM [facility] Stop: 09/15/20 08:59 Last Admin: 08/20/20 10:09 Dose: 400 mg Documented by: Metoprolol Tartrate (Metoprolol Tartrate 1 Mg/Ml Vial) 2.5 mg IV Q6H [facility] Stop: 09/20/20 20:59 Last Admin: 08/23/20 09:00 Dose: Not Given Documented by: Miscellaneous (Apriso~Order Awaiting Action) 1 ea N/A QS [facility] Stop: 09/15/20 07:59 Last Admin: 08/23/20 09:04 Dose: Not Given Documented by: Miscellaneous (Unit Dose Compound) 1 ea AR Q8H [facility] Stop: 09/20/20 05:59 Last Admin: 08/23/20 05:30 Dose: 1 ea Documented by: Multivitamins/Minerals (Cerovite Adv Formula Tab) 1 tab PO QAM [facility] Stop: 09/15/20 08:59 Last Admin: 08/20/20 10:16 Dose: Not Given Documented by: Nitroglycerin (Nitroglycerin Sl 0.4 Mg/Tab Tab) 0.4 mg SL UD PRN PRN Reason: Chest Pain Stop: 09/15/20 00:56 Pantoprazole Sodium (Pantoprazole 40 Mg Tab) 40 mg PO QAM [facility] Stop: 09/15/20 08:59 Last Admin: 08/20/20 10:10 Dose: 40 mg Documented by: Propranolol HCl (Propranolol Hcl 10 Mg Tab) 10 mg PO BID [facility] Stop: 09/15/20 00:56 Last Admin: 08/21/20 10:01 Dose: Not Given Documented by: Rifaximin (Rifaximin 550 Mg Tablet) 550 mg PO BID [facility] Stop: 09/15/20 00:56 Last Admin: 08/23/20 09:04 Dose: Not Given Documented by: (1) Abdominal ascites Ascites type: due to alcoholic cirrhosis Qualified Code(s): K70.31 - Alcoholic cirrhosis of liver with ascites
--- NOTE | 2020-08-23 15:19 | Progress Notes ---
DATE: 08/23/2020 Case reviewed and discussed with Hospitalist Service. The patient has been followed by gastroenterology this week and continues to do poorly. She remains obtunded. She is now showing evidence of continued hyperbilirubinemia and DIC. This is objective evidence of a very poor prognosis in patients with end-stage liver disease. The patient has not been deemed a candidate for liver transplant. I agree with palliative measures. If the family wants more aggressive care, the patient should be transferred to a [facility]. [facility]
[2020-08-24] MEDS: UNIT DOSE COMPOUND PR SCH (02:41)
[2020-08-24] MEDS: METOPROLOL TARTRATE 1 MG/ML VIAL IV SCH ×2 (02:41→08:13)
[2020-08-24] MEDS: APRISO~ORDER AWAITING ACTION SCH (07:48)
[2020-08-24] MEDS ORDERED: MoRPHine SULFATE 2 MG/ML CARP IV STA ×2 (12:33→18:30)
[2020-08-24] MEDS ORDERED: ONDANSETRON INJ 2 MG/ML 2 ML VIAL IV PRN (13:00)
[2020-08-24] MEDS ORDERED: ONDANSETRON 4 MG OD TAB SL PRN (13:00)
[2020-08-24] MEDS ORDERED: MoRPHine SULFATE 2 MG/ML CARP IV PRN (13:00)
[2020-08-24] MEDS ORDERED: LORazepam 0.5 MG TAB PO PRN (13:00)
--- NOTE | 2020-08-24 13:06 | Hospitalist Progress Note ---
Date of Service August 24, 2020 Assessment & Plan (1) Comfort measures only status: (2) Acute liver failure: Acute liver failure secondary to Acute alcohol hepatitis in setting of alcoholic cirrhosis with continued decline. Grave prognosis at this point with development of DIC and decline clinically. Patient remains obtunded. Transitioned to comfort care measures. Moved to medical floor. PRN morphine initially, however, she appeared more swollen as the day progressed and that this was not enough morphine. Will give Lasix 40mg IV now for comfort and initiate morphine drip to treat any dyspnea, pain or anxiety. (3) DIC (disseminated intravascular coagulation): (4) Acute hepatic encephalopathy: (5) Alcoholic hepatitis: (6) Abdominal ascites: (7) Hypokalemia: (8) Thrombocytopenia: (9) UTI (urinary tract infection): (10) Alcohol abuse: (11) Hemochromatosis: Admission and Anticipated Discharge Date Admission Date: August 15, 2020 Subjective 59 yo F with alcoholic cirrhosis and acute hepatic encephalopathy 2/2 acute liver failure 2/2 acute alcoholic hepatitis patient remains obtunded ROS cannot be obtained discussed transition to comfort care with daughter more family members came to see her prior to the change which occurred this afternoon Review of Systems Review of Systems: Unobtainable due to cognitive status Physical Exam Physical Exam: CONSTITUTIONAL: obese, vitals as above, generally ill-appearing and obtunded EYES: +icteric sclerae, normal conjunctivae ENT: external ear and nose normal NECK: trachea midline RESPIRATORY: some coarse rhonchi at bases with limited exam 2/2 body habitus and obtunded state. Periods of apneic breathing noted. Counted 16 breaths per minute. CARDIOVASCULAR: regular rate and rhythm, S1 and 2 heard without murmurs, gallops or rubs, 1+ pitting edema of lower extremities. General puffiness. GASTROINTESTINAL: soft, no guarding, nondistended, protuberant abdomen with positive fluid wave MUSCULOSKELETAL: head is normocephalic and atraumatic, cannot be assessed as patient is hypersomnolent SKIN: warm and dry, +jaundiced NEUROLOGIC: hypersomnolent, altered, cannot follow instructions at all. Results & Data Results & Data ([facility]) Vital Signs (Past 12 Hours) Vital Signs Temp Pulse Pulse Resp BP BP BP 08/24/20 11:34 37.6 C H 90 19 152/80 H 08/24/20 08:13 83 147/84 H 08/24/20 07:05 37.8 C H 80 16 147/84 H 08/24/20 04:03 36.7 C 74 18 137/75 08/24/20 02:41 71 156/78 H Pulse Ox 08/24/20 11:34 95 08/24/20 08:13 08/24/20 07:05 97 08/24/20 04:03 96 08/24/20 02:41 Medications Administered Current Inpatient Medications Lorazepam (Ativan) 0.5 mg in 1 mls @ 1 mls/min IV Q4H PRN PRN Reason: Anxiety/Agitation Stop: 09/23/20 12:59 Lorazepam (Lorazepam 0.5 Mg Tab) 0.5 mg PO Q4H PRN PRN Reason: Anxiety/Agitation Stop: 09/23/20 12:59 Morphine Sulfate (Morphine Sulfate 2 Mg/Ml Carp) 2 mg IV Q4H PRN PRN Reason: Pain or Respiratory Distress Stop: 09/07/20 12:59 Ondansetron HCl (Ondansetron Inj 2 Mg/Ml 2 Ml Vial) 4 mg IV Q4H PRN PRN Reason: Nausea And Vomiting Stop: 09/23/20 12:59 Ondansetron HCl (Ondansetron 4 Mg Od Tab) 4 mg SL Q4H PRN PRN Reason: Nausea And Vomiting Stop: 09/23/20 12:59 (1) Abdominal ascites Ascites type: due to alcoholic cirrhosis Qualified Code(s): K70.31 - Alcoholic cirrhosis of liver with ascites
[2020-08-24] MEDS ORDERED: STAT IV Infusion **Titration per Protocol STA (18:30)
[2020-08-24] MEDS ORDERED: MoRPHine SULF/NSS 250 MG/250 ML BTL IV SCH (18:30)
[2020-08-24] MEDS ORDERED: ACETAMINOPHEN 1,000 MG/100 ML VIAL IV PRN (18:32)
[2020-08-24] MEDS ORDERED: FUROSEMIDE 40 MG in SYRINGE 0 ML IV ONE (19:00)
[2020-08-25] MEDS ORDERED: SCOPOLAMINE 1 MG TDSY TD ONE (05:30)
[2020-08-25] MEDS: ATROPINE SULFATE 1% OP SOLN 5 ML BTL SL PRN ×8 (05:34→19:44)
[2020-08-25] MEDS: LORazepam 0.5 MG/1 ML VIAL IV PRN ×2 (05:35→14:45)
[2020-08-25] MEDS: CHECK SCOPOLAMINE PATCH PLACEMENT SCH ×2 (09:02→15:25)
--- NOTE | 2020-08-25 10:51 | Palliative Care Progress Note ---
Date of Service August 25, 2020 Assessment & Plan (1) Palliative care encounter: Emely's family agreed to a transition to comfort measures approach to her care yesterday and was placed on a Morphine gtt. I saw her this morning. She was obtunded and did not respond to verbal or tactile stimuli. I spoke with Mai on the phone ([phone]) and answered questions regarding end of life. Her and her siblings, Pavan, Hipolito and Sari will be coming to visit today. Visitation granted and front end architect aware. She is on Morphine infusion at 3 mg/hour. She does not have furrowed brow, grimacing, or significant breathing changes; however, is having significant auditory secretions despite having a Scopolomine patch and Atropine gtts ordered and being administered. I ordered Robinul 0.2 mg IV Q3 hours and informed nursing they could alternate between IV Robinul and Atropine gtts if necessary. Anticipated life expectancy hours a a day or two. Palliative care will follow. (2) Acute liver failure: Admission and Anticipated Discharge Date Admission Date: August 15, 2020 Subjective Emely remains obtunded. She is not responsive to verbal or tactile stimulation visited patient with RIRI Valenzuela and Dr. Barragan transitioned to [facility] yesterday 08/24/20 See A/P for further details Review of Systems Review of Systems: Unobtainable due to cognitive status and Unobtainable due to reduced consciousness Sheldon System Assessment Scale Pain on visual assessment: 0/3 SOB on visual assessment: 0/3 Palliative Performance Score 10% Physical Exam Constitutional: + ill appearing and + lethargic; no acute distress ENMT: Mouth: + dry oral mucous membranes Respiratory: no respiratory distress and no labored breathing Cardiovascular: Rate/Rhythm: regular rhythm Extremities: + edema Gastrointestinal (Abdomen): Inspection/Auscultation: + abdomen distended Percussion/Palpation: + ascites Skin: + jaundice Neurologic: + obtunded PG Care Time/CCT Total # of Minutes Spent Total Time Spent with Patient: Total time spent is greater than 50% in coordination of care (as documented) at patient's floor/unit and/or counseling patient: 35 Coding Level of Care Code 54794 Subseq Hosp Care Lvl 3 Diagnoses Palliative care encounter Z51.5 Acute liver failure K72.00 Time Spent (min) 35 Time Spent Midlevel Time spent 35 minutes with > 50% of that time spent assessing the patient, providing symptom management and collaborating with IDT
[2020-08-25] MEDS: GLYCOPYRROLATE 0.2 MG/ML VIAL IV PRN ×4 (11:27→21:16)
--- NOTE | 2020-08-25 14:42 | Hospitalist Progress Note ---
Date of Service August 25, 2020 Assessment & Plan (1) Comfort measures only status: (2) Acute liver failure: Patient is 59-year-old female who was admitted with acute liver failure secondary to acute alcoholic hepatitis. She had continued to decline. Given overall clinical deterioration and development of DIC with poor prognosis patient was made comfort care positive medicine is on board. We will continue with morphine at this point. (3) DIC (disseminated intravascular coagulation): (4) Acute hepatic encephalopathy: (5) Alcoholic hepatitis: (6) Abdominal ascites: (7) Hypokalemia: (8) Thrombocytopenia: (9) UTI (urinary tract infection): (10) Alcohol abuse: (11) Hemochromatosis: Admission and Anticipated Discharge Date Admission Date: August 15, 2020 Subjective Patient is resting comfortably. Does not appear to be in any distress. Currently on nasal cannula. Review of Systems Review of Systems: Unobtainable due to reduced consciousness Physical Exam Physical Exam: Patient is resting comfortably. Does not appear to be in distress. Chronically ill-appearing female. (1) Abdominal ascites Ascites type: due to alcoholic cirrhosis Qualified Code(s): K70.31 - Alcoholic cirrhosis of liver with ascites
[2020-08-25] MEDS ORDERED: OXYMETAZOLINE 0.05% 30 ML BTL PRN (17:32)
--- NOTE | 2020-08-26 12:45 | Discharge Summary ---
Date of Service August 26, 2020 Admission HPI Per Admitting Provider A 59-year-old female with past medical history significant for alcoholic liver cirrhosis, history of hepatic encephalopathy, history of hemochromatosis, hypertension, portal hypertensive gastropathy, obesity, ongoing alcohol abuse. Lives alone, was brought in, son called ambulance because she was confused and disoriented at home. Son says that he checks her every day, but he did not check for last couple of days and today when he went she was found to be disoriented, confused.He also noticed eyes turning yellow about a month ago and couple of days ago, she was getting more yellow and today it got worse and he saw some empty vodka bottles at home. He thinks she is still drinking. When checked with the patient she says she is drinking 2 shots of vodka every day, last drink was about 2 days ago. Denies any fevers. Denies any chest pain, no shortness of breath. She has some dry cough. No abdominal pain. She says she is moving her bowels at home, does not remember taking lactulose. She is ambulating okay at home. Appetite is okay. She is oriented to name and place, could not tell her date of , knows today's month and year, but could not tell why she was brought into the hospital, she was somewhat confused, could not get much history from the patient. Also son says she was in the hospital with sepsis a couple of years ago for lower extremity wounds, so he got worried and he went to bring her to the hospital earlier and last admission she also seemed to be on alcohol withdrawal at that time. Admission Exam Per Admitting Provider GENERAL: The patient is obese, somewhat confused. VITAL SIGNS: Temperature 36.9, pulse 101, respiratory rate 20, blood pressure 98/67, oxygen 98% room air. HEENT: Pupils equal, round, reactive to light. Icterus present. Oral mucosa somewhat dry. NECK: No neck masses seen. CARDIOVASCULAR: S1, S2, regular rate and rhythm, no murmur, no gallop. RESPIRATORY SYSTEM: Normal AP diameter. No accessory muscle use. No wheezing, no crackles. ABDOMEN: Some distended, some mild erythematous changes seen. Nontender. Bowel sounds present. CENTRAL NERVOUS SYSTEM: Alert and awake and oriented to name and place. Speech is clear. No facial droop. Obeys simple commands. Moves extremities. EXTREMITIES: Lower extremity edema present, some mild erythematous changes. SKIN: Yellow discoloration. Principal Diagnosis Acute liver failure: Discharge Exam Patient is resting comfortably. Does not appear to be in distress. Chronically ill-appearing female. Discharge Data Allergies Allergy/AdvReac Type Severity Reaction Status Date / Time benzalkonium Allergy Unknown Itchiness,swollen Verified 01/22/19 08:26 reddened eye cephalexin Allergy Unknown Hives Verified 01/22/19 08:26 clonidine Allergy Unknown Itchy rash Verified 01/22/19 08:26 Consultations 08/15/20 19:34 ED Decision to Admit Stat 08/16/20 00:57 Consult Case Management - Discharge Planning Routine 08/16/20 08:00 Consult Gastroenterology Routine 08/17/20 08:56 Consult Nephrology Routine 08/20/20 12:55 Consult Palliative Care Routine 08/21/20 15:35 Consult Infectious Diseases Routine 08/24/20 13:01 Consult Case Management - Discharge Planning Routine Consult Palliative Care Routine Ordered Studies 08/15/20 17:35 CT head/brain wo con Stat 08/15/20 18:23 CT abd pelvis wo con Stat 08/20/20 12:17 CT head/brain wo con Routine 08/23/20 01:23 CT head/brain wo con Urgent Hospital Course (1) Comfort measures only status: (2) Acute liver failure: Patient is 59-year-old female who was admitted with acute liver failure secondary to acute alcoholic hepatitis. She continued to decline. Given overall clinical deterioration and development of DIC with poor prognosis patient was made comfort care. Palliative medicine is on board. Patient was started on morphine infusion. Patient on 08/25/2020. (3) DIC (disseminated intravascular coagulation): (4) Acute hepatic encephalopathy: (5) Alcoholic hepatitis: (6) Abdominal ascites: (7) Hypokalemia: (8) Thrombocytopenia: (9) UTI (urinary tract infection): (10) Alcohol abuse: (11) Hemochromatosis: Total Time Total Time Spent Total Time Spent (In Minutes): 35 Discharge Plan Discharge Items Patient Disposition:
== END 2020-08-25 23:59 | disposition expired | DRG 432 ==
LOC: ED 16:59 → SUATTDRO 23:07 → 2S 23:07 → 3W 08-24 14:35